=== PATIENT | male | born 1965 | race Caucasian/White ===

== ENCOUNTER 2020-02-02 13:18 | Inpatient (IN) | payer OTHER, SELFPAY ==
[2020-02-09 04:38] VITALS: BMI 34.9
[2020-02-10] VITALS (8 sets, daily range): BP systolic 123–165; BP diastolic 88–100; PULSE 78–101; RESP 16–20; TEMP 36.4–37.2; O2SAT 93–96
--- NOTE | 2020-02-10 | XR_ITS ---
EXAMINATION: CHEST X-RAY CLINICAL INFORMATION: Check NG tube placement COMPARISON: Previous chest x-ray most recent 02/05/2020 TECHNIQUE: AP portable chest FINDINGS: The cardiac and mediastinal contours are normal. There is a nasogastric tube that projects over the stomach. There is new atelectasis or small infiltrate at the left lung base. The lungs are otherwise clear. There is no pleural effusion or pneumothorax. No free air is seen. Distended bowel below the diaphragm is noted. There are degenerative changes of the spine. IMPRESSION: Nasogastric projects over stomach. New atelectasis or small infiltrate at the left lung base.
[2020-02-10] MEDS: Metoprolol Tartrate 50 MG TABLET PO ×2 (01:15→07:41)
[2020-02-10] MEDS: Dextrose 5 % and 0.9 % NaCl 1,000 ML 80 ML IVCONT ×2 (02:55→15:48)
[2020-02-10] MEDS: Piperacillin Sodium/Tazobactam 3.375 GM in 0.9 % Sodium Chloride 50 ML IV ×4 (05:09→22:11)
[2020-02-10] MEDS: Pantoprazole Sodium 40 MG/10 ML VIAL IVPUSH (05:10)
[2020-02-10 06:45] LABS: Hemoglobin 9.8 g/dl (14.0-18.0); Mean Corpuscular HGB Conc 32.7 g/dl (31.0-36.0); Mean Corpuscular Hemoglobin 26.1 pg (27.0-33.0); Mean Platelet Volume 10.1 fL (9.4-12.4); NRBC Pct Auto 0.4 /100WBC (0.0-0.2); Platelet Count 495 X10*3/uL (160-400); Red Blood Count 3.75 X10*6/uL (4.60-5.80); Red Cell Distribution Width 15.2 % (11.0-16.0)
[2020-02-10] MEDS: 0.9 % Sodium Chloride Flush 3 ML SYRINGE 2 ML IVFLUSH ×3 (07:40→17:04)
[2020-02-10] MEDS: lisinopriL 20 MG TABLET PO (07:41)
[2020-02-10 09:48] LABS: Blood Urea Nitrogen 11 mg/dL (9-16); Calcium 7.6 mg/dL (8.4-10.2); Creatinine Clr Calc Pharmacy 131.7; Estimated Glomerular Filt Rate > 60; Glucose Random 129 mg/dL (60-115)
[2020-02-10 09:58] LABS: Anion Gap 14 (12-20); Carbon Dioxide 26 mmol/L (22-29); Chloride 102 mmol/L (96-108); Sodium 139 mmol/L (135-145)
--- NOTE | 2020-02-10 10:07 | P.PNGS_ITS ---
Subjective Subjective Interval history: Developed nausea and vomiting this morning. NGT placed by Dr. Rainey at bedside. Passing flatus and stool via ostomy. <MAURICE Yu Last Filed: 02/10/20 10:20> Physical Exam Vital Signs and I&O and Narrative: Vital Signs and I&O: Vital Signs Temp 98.4 F 02/10/20 07:27 Pulse 78 02/10/20 07:41 Resp 18 02/10/20 07:27 BP 135/90 H 02/10/20 07:41 Pulse Ox 93 02/10/20 07:27 Intake & Output 02/09/20 02/10/20 02/10/20 18:59 06:59 18:59 Intake Total 50 / 50 50 / 50 Balance 50 / 50 50 / 50 Intake: Intake, IV Amoun t 50 / 50 50 / 50 Piperacillin S odium/Tazobactam 50 / 50 50 / 50 3.375 gm In 0. 9 % Sodium Chloride 50 ml @ 100 mls/hr IV Q6H [facility] Rx#:[id number] Body Mass Index 34.9 <Chio Kiran PA-C Last Filed: 02/10/20 10:20> Const: General: alert, awake and other (uncomfortable appearing) <MAURICE Yu Last Filed: 02/10/20 10:20> Orientation/consciousness: patient oriented x3 <MAURICE Yu Last Filed: 02/10/20 10:20> Resp: Effort & Inspection: normal respiratory effort <MAURICE Yu Last Filed: 02/10/20 10:20> Cardio: Rate: regular rate <MAURICE Yu Last Filed: 02/10/20 10:20> GI: Inspection: Yes distended, Yes incision (no erythema, some drainage) and Yes other (ostomy pink with large amount of soft stool in appliance) <MAURICE Yu Last Filed: 02/10/20 10:20> Palpation (GI): Soft to palpation and Tenderness to palpation present (GI) other (surrounding incision) <MAURICE Yu Last Filed: 02/10/20 10:20> Skin: General skin exam: other (normal color) <Chio Kiran PA-C - Last Filed: 02/10/20 10:20> Rashes: no rashes <MAURICE Yu Last Filed: 02/10/20 10:20> Neuro: General: patient oriented x3 <MAURICE Yu Last Filed: 02/10/20 10:20> Extrem: General: Yes no clubbing, cyanosis or edema <MAURICE Yu Last Filed: 02/10/20 10:20> Progress Note: A&P Assessment and plan (1) Stricture of sigmoid colon: Problem details: secondary to diverticulitis, causing LBO <MAURICE Yu Last Filed: 02/10/20 10:20> Status: Acute <MAURICE Yu Last Filed: 02/10/20 10:20> Assessment and Plan: s/p sigmoid resection with creation of transverse loop colostomy <MAURICE Yu Last Filed: 02/10/20 10:20> (2) S/P exploratory laparotomy: Status: Acute <MAURICE Yu Last Filed: 02/10/20 10:20> Assessment and Plan: POD #7 s/p ex lap, sigmoid resection with creation of transverse loop colostomy F/u CT scan yesterday for nausea/vomiting, leukocytosis revealed possible ischemia of colon but lactate normal. Started on IV zosyn empirically as he is at risk for abscess formation. WBC improved this am. Persistent N/V this am, NGT inserted. Continue to low intermittent suction. Likely with ileus. Strongly encouraged ambulation, OOB and IS use. <MAURICE Yu Last Filed: 02/10/20 10:20> vomitting this AM, so I placed an NGT abd remains soft and benign good stoma function vomitting likely from ileus as shown by CT yesterday WBC improving on Zosyn OOB seen and examined - agree with YASMIN Kiran overall, benign appearing <Александр Rainey MD - Last Filed: 02/10/20 13:39> (3) Ileus following gastrointestinal surgery: Status: Acute <Chio Kiran PA-C - Last Filed: 02/10/20 10:20> Assessment and Plan: Continue NPO, NGT decompression. IVF for hydration. Encouraged OOB/ambulation. <MAURICE Yu Last Filed: 02/10/20 10:20> (4) Atrial fibrillation: Status: Acute <MAURICE Yu Last Filed: 02/10/20 10:20> Assessment and Plan: Hospitalists, cardiology following. HR improved. On lovenox. <MAURICE Yu Last Filed: 02/10/20 10:20> Fall Risk Details Current Medications: Current Medications Generic Name Dose Route Start Last Admin Trade Name Freq PRN Reason Stop Dose Admin Acetaminophen 975 mg 02/10/20 00:00 Acetaminophen 325 Mg Tablet PO Q6H PRN Pain, Mild (Pain Scale 1-3)/fever/headache Albuterol Sulfate 2 puff 02/10/20 00:00 Albuterol Sulfate 90 Mcg 18 Gm Inhaler INHALE Q4H PRN Shortness of Breath Albuterol/Ipratropium 3 ml 02/10/20 00:00 Albuterol/Iprat 2.5/0.5mg 3 Ml Ampul.Neb INHALE RQ4H PRN Shortness of Breath Enoxaparin Sodium 95 mg 02/10/20 07:00 Enoxaparin Sodium 100 Mg/Ml Syringe 1 mg/kg (95 mg) SUBCUT Q12H SHARI Dextrose/Sodium Chloride 1,000 mls @ 80 mls/hr 02/10/20 13:30 02/10/20 02:55 D5ns IVCONT 80 mls/hr .[id number] SHARI Administration Piperacillin Sod/Tazobactam 50 mls @ 100 mls/hr 02/10/20 01:00 02/10/20 08:54 Sod 3.375 gm/ Sodium Chloride IV Infused Q6H SHARI Infusion Diltiazem HCl 125 mg/ Sodium 125 mls @ 0 mls/hr 02/10/20 08:00 Chloride IVCONT .Q0M SHARI Protocol Per Protocol Levalbuterol HCl 1.25 mg 02/10/20 00:00 Levalbuterol Hcl 1.25 Mg/3 Ml Vial.Neb INHALE Q4H PRN Shortness of Breath Lisinopril 20 mg 02/10/20 09:00 02/10/20 07:41 Lisinopril 20 Mg Tablet PO 20 mg DAILY SHARI Administration Protocol Metoprolol Tartrate 50 mg 02/10/20 00:00 02/10/20 07:41 Metoprolol Tartrate 50 Mg Tablet PO 50 mg Q6H SHARI Administration Protocol Morphine Sulfate 4 mg 02/10/20 00:00 Morphine Sulfate 4 Mg/Ml Cartridge IVPUSH Q4H PRN Pain, Severe (Pain Scale 7-10) Naloxone HCl 0.2 mg 02/10/20 00:00 Naloxone Hcl 0.4 Mg/Ml Vial IVPUSH Q2M PRN excessive sedation or RR <8 Ondansetron HCl 4 mg 02/10/20 00:00 Ondansetron Hcl 4 Mg/2 Ml Vial IVPUSH Q8H PRN Nausea Oxycodone HCl 5 mg 02/10/20 00:00 Oxycodone Hcl Immed Release 5 Mg Tablet PO Q4H PRN Pain, Moderate (Pain Scale 4-6 Oxycodone HCl 10 mg 02/10/20 00:00 Oxycodone Hcl Immed Release 5 Mg Tablet PO Q4H PRN Pain, Severe (Pain Scale 7-10) Pantoprazole Sodium 40 mg 02/10/20 06:30 02/10/20 05:10 Pantoprazole Sodium 40 Mg/10 Ml Vial IVPUSH 40 mg DAILY@0630 SHARI Administration Sodium Chloride 2 ml 02/10/20 00:00 02/10/20 07:40 0.9 % Sodium Chloride Flush 3 Ml Syringe IVFLUSH 2 ml QSHIFT SHARI Administration <Chio Kiran PA-C - Last Filed: 02/10/20 10:20> Time Spent With Patient Time: Total time spent is greater than 50% in coordination of care (as documented) at patient's floor/unit and/or counseling patient: <MAURICE Yu Last Filed: 02/10/20 10:20> Time with patient: 15 - 24 minutes <MAURICE Yu Last Filed: 02/10/20 10:20> Progress Note: Quality VTE Deep Vein Thrombosis/Pulmonary Embolism Present on Admission: No <Chio Kiran PA-C - Last Filed: 02/10/20 10:20>
--- NOTE | 2020-02-10 12:32 | HO.PM.IMPN ---
Subjective Subjective Date of Service: 02/10/20 Interval History: patient seen and examined at bedside patient reported having vomiting in the morning NG tube was placed to wall suction Physical Exam Vital Signs and I&O and Narrative: Vital Signs and I&O: Vital Signs Temp 97.6 F 02/10/20 11:38 Pulse 91 02/10/20 11:38 Resp 18 02/10/20 11:38 BP 134/100 H 02/10/20 11:38 Pulse Ox 94 02/10/20 11:38 Intake & Output 02/09/20 02/10/20 02/10/20 18:59 06:59 18:59 Intake Total 50 / 50 50 / 50 Balance 50 / 50 50 / 50 Intake: Intake, IV Amoun t 50 / 50 50 / 50 Piperacillin S odium/Tazobactam 50 / 50 50 / 50 3.375 gm In 0. 9 % Sodium Chloride 50 ml @ 100 mls/hr IV Q6H [facility] Rx#:[id number] Body Mass Index 34.9 Objective Data Current Medications Generic Name Dose Route Start Last Admin Trade Name Freq PRN Reason Stop Dose Admin Acetaminophen 975 mg 02/10/20 00:00 Acetaminophen 325 Mg Tablet PO Q6H PRN Pain, Mild (Pain Scale 1-3)/fever/headache Albuterol Sulfate 2 puff 02/10/20 00:00 Albuterol Sulfate 90 Mcg 18 Gm Inhaler INHALE Q4H PRN Shortness of Breath Albuterol/Ipratropium 3 ml 02/10/20 00:00 Albuterol/Iprat 2.5/0.5mg 3 Ml Ampul.Neb INHALE RQ4H PRN Shortness of Breath Enoxaparin Sodium 95 mg 02/10/20 07:00 Enoxaparin Sodium 100 Mg/Ml Syringe 1 mg/kg (95 mg) SUBCUT Q12H SHARI Dextrose/Sodium Chloride 1,000 mls @ 80 mls/hr 02/10/20 13:30 02/10/20 02:55 D5ns IVCONT 80 mls/hr .[id number] SHARI Administration Piperacillin Sod/Tazobactam 50 mls @ 100 mls/hr 02/10/20 01:00 02/10/20 08:54 Sod 3.375 gm/ Sodium Chloride IV Infused Q6H [facility]I Infusion Diltiazem HCl 125 mg/ Sodium 125 mls @ 0 mls/hr 02/10/20 08:00 Chloride IVCONT .Q0M [facility]I Protocol Per Protocol Levalbuterol HCl 1.25 mg 02/10/20 00:00 Levalbuterol Hcl 1.25 Mg/3 Ml Vial.Neb INHALE Q4H PRN Shortness of Breath Lisinopril 20 mg 02/10/20 09:00 02/10/20 07:41 Lisinopril 20 Mg Tablet PO 20 mg DAILY SHARI Administration Protocol Metoprolol Tartrate 50 mg 02/10/20 00:00 02/10/20 07:41 Metoprolol Tartrate 50 Mg Tablet PO 50 mg Q6H SHARI Administration Protocol Morphine Sulfate 4 mg 02/10/20 00:00 Morphine Sulfate 4 Mg/Ml Cartridge IVPUSH Q4H PRN Pain, Severe (Pain Scale 7-10) Naloxone HCl 0.2 mg 02/10/20 00:00 Naloxone Hcl 0.4 Mg/Ml Vial IVPUSH Q2M PRN excessive sedation or RR <8 Ondansetron HCl 4 mg 02/10/20 00:00 Ondansetron Hcl 4 Mg/2 Ml Vial IVPUSH Q8H PRN Nausea Oxycodone HCl 5 mg 02/10/20 00:00 Oxycodone Hcl Immed Release 5 Mg Tablet PO Q4H PRN Pain, Moderate (Pain Scale 4-6 Oxycodone HCl 10 mg 02/10/20 00:00 Oxycodone Hcl Immed Release 5 Mg Tablet PO Q4H PRN Pain, Severe (Pain Scale 7-10) Pantoprazole Sodium 40 mg 02/10/20 06:30 02/10/20 05:10 Pantoprazole Sodium 40 Mg/10 Ml Vial IVPUSH 40 mg DAILY@0630 SHARI Administration Sodium Chloride 2 ml 02/10/20 00:00 02/10/20 07:40 0.9 % Sodium Chloride Flush 3 Ml Syringe IVFLUSH 2 ml QSHIFT SHARI Administration Labs CBC & Chem 7: 02/10/20 06:00 02/10/20 05:44 Labs: Laboratory Results - last 24 hr 02/07/20 02/08/20 02/09/20 05:47 05:30 05:55 MCV 80.4 80.7 MCH 26.3 L 26.3 L MCHC 32.7 32.6 RDW RDW Coeff of Oli 15.1 15.2 Plt Count 430 H D 524 H MPV 10.5 10.5 Absolute Nucleated RBC 0.000 0.050 H Nucleated RBC % (auto) 0.0 0.3 H Bicarbonate 21 L Anion Gap 16 Estimated Creat Clear 137.8 Estim Creat Clear Calc Estimated GFR Est GFR (Non-Af Amer) > 60 Random Glucose 79 Lactic Acid Calcium 02/09/20 02/10/20 02/10/20 12:55 05:44 05:44 MCV 80.0 MCH 26.1 L MCHC 32.7 RDW 15.2 RDW Coeff of Oli Plt Count 495 H MPV 10.1 Absolute Nucleated RBC 0.050 H Nucleated RBC % (auto) 0.4 H Bicarbonate Anion Gap 14 Estimated Creat Clear Estim Creat Clear Calc 131.7 Estimated GFR > 60 Est GFR (Non-Af Amer) Random Glucose 129 H Lactic Acid 1.1 Calcium 7.6 L 02/10/20 06:00 MCV Not Rcvd MCH Not Rcvd MCHC Not Rcvd RDW RDW Coeff of Oli Not Rcvd Plt Count Not Rcvd MPV Not Rcvd Absolute Nucleated RBC Not Rcvd Nucleated RBC % (auto) Not Rcvd Bicarbonate Anion Gap Estimated Creat Clear Estim Creat Clear Calc Estimated GFR Est GFR (Non-Af Amer) Random Glucose Lactic Acid Calcium Quality VTE Deep Vein Thrombosis/Pulmonary Embolism Present on Admission: No
[2020-02-10] MEDS: Enoxaparin Sodium 100 MG/ML SYRINGE 95 MG SUBCUT (13:17)
[2020-02-10] MEDS: Potassium Chloride/H20 10 MEQ/100 ML PIGGYBACK 100 MEQ IV ×4 (13:22→18:14)
--- NOTE | 2020-02-10 13:47 | CA_ITS ---
Transthoracic Echocardiogram Amended Patient (Last, First, Middle): Joe Marie, Gender: Male Date of : 1965 Age: 55 Procedure Date: 02/10/2020 Procedure Type: Transthoracic Echocardiogram Location: [facility] [place] Height: 165.1 cm Weight: 95.26 kg BSA: 2.02 m2 Heart Rate: bpm Ore Sampler: DANIELA Referring MD: Nitesh Rogers MD Symptoms: PERSISTANT ATRIAL A-FIB Study Quality: Fair ECG Rhythm: Atrial Fibrillation Conclusions: - The left ventricular systolic function is normal. The visually estimated ejection fraction is between 60-65%. - Mildly increased right ventricular cavity size. - No obvious valvular pathology seen on this study. - Mild pulmonary hypertension is present. - (due to technical difficulty, reporting was delayed). Findings Procedure Information Contrast agent, definity, is being given per protocol without apparent complications. Left Ventricle Normal left ventricular cavity size. There is normal left ventricular wall thickness. The left ventricular systolic function is normal. The visually estimated ejection fraction is between 60-65%. There is no evidence of regional wall motion abnormalities. Diastolic function is indeterminate on the basis of available data. Right Ventricle Mildly increased right ventricular cavity size. There is normal right ventricular systolic function. Atria The left atrium is normal in size. The right atrium is normal in size. Aortic Valve The aortic valve was not well visualized. There is no aortic valve stenosis. There is no aortic valve regurgitation. Mitral Valve The mitral valve appears normal. There is mild mitral valve regurgitation. There is no mitral valve stenosis. Pulmonic Valve The pulmonic valve was not well visualized. Tricuspid Valve There is trace tricuspid valve regurgitation. The right ventricular systolic pressure is 42 mmHg. Mild pulmonary hypertension is present. Great Vessels The aortic annulus, sinuses of valsalva, and asc aorta are normal in size. Venous The inferior vena cava is normal in size and collapses less than 50% with inspiration. Pericardium/Pleural There is no evidence of pericardial effusion. Prior Study Comparison No significant change compared to prior study dated: 01/18/2015. Recommendations, Care & Conclusions No obvious valvular pathology seen on this study. Measurements 2D Linear Measurements IVSd: 0.93 0.6-0.9/0.6-1.0 cm LVIDd: 4.13 3.9-5.3/4.2-5.9 cm LVIDd Index: 2.04 2.4-3.2/2.2-3.1 cm/m2 LVIDs: 2.82 2.0-3.6 cm LVPWd: 0.98 0.7-1.1 cm LA Diam: 4.50 2.7-3.8/3.0-4.0 cm LAIDs Index: 2.23 1.5-2.3 cm/m2 LV Mass: 155.56 67-162/88-224 g LV Mass Index: 77.01 43-95/49-115 g/m2 LVOT Diam: 2.10 3.0+(-)1.3 cm LVOT LVOT Diam: 2.10 LVOT Area: 3.46 Tricuspid Valve TR Pk Daniel: 2.90 TR Pk Grad: 34.00 RA Press: 8.00 RVSP: 42.00 Great Vessels Aorta Ao Asc: 2.70 2.1-3.4 cm Ao Arch: 2.50 Updated in Other Vendor System with Status of Final Angelito Fu MD electronically signed on 03/13/2020 10:10:32 AM with status of Final
--- NOTE | 2020-02-10 14:24 | MHC.CLN ---
F/U Nutrition: Diet advanced to C/L recommend 1700 calories per day to promote slow wt loss Following
--- NOTE | 2020-02-10 14:26 | PM.PNCARD ---
Subjective Subjective Principal diagnosis: Atrial fibrillation Interval history: patient seen and examined at bedside patient reported having vomiting in the morning NG tube was placed to wall suction patient denies any palpitations. Heart rate is well controlled for now. Physical Exam Vital Signs and I&O: Vital Signs Temp 97.6 F 02/10/20 11:38 Pulse 91 02/10/20 11:38 Resp 18 02/10/20 11:38 BP 134/100 H 02/10/20 11:38 Pulse Ox 94 02/10/20 11:38 Intake & Output 02/09/20 02/10/20 02/10/20 18:59 06:59 18:59 Intake Total 50 / 50 100 / 100 Output Total 200 / 200 Balance 50 / 50 -100 / -100 Urine Output (Average ml/kg/hr) 0.17 Intake: Intake, IV Amount 50 / 50 100 / 100 Piperacillin Sodium/Tazobactam 50 / 50 100 / 100 3.375 gm In 0.9 % Sodium Chloride 50 ml @ 100 mls/hr IV Q6H [facility] Rx#:[id number] Output: Output, Urine Amount 200 / 200 Other: NPO Yes Urine Urinal Urine Color Yellow Body Mass Index 34.9 Const General: cooperative, alert, awake and acute distress ( Appears uncomfortable) mild Nutritional Appearance: overweight Orientation/consciousness: patient oriented x3 HENMT Head: Yes normal to inspection, Yes normocephalic and Yes atraumatic Eyes General: appearance normal, both eyes and all related structures Neck Neck: Yes no JVD Carotids: normal carotid upstroke Chest Chest palpation & inspection: normal inspection of the chest Resp Effort & Inspection: normal respiratory effort and symmetric chest movement Auscultation: clear to auscultation bilaterally and diminished lung sounds Cardio Rhythm: abnormal rhythm irregularly irregular Heart sounds: S1 normal heart sound present and S2 normal heart sound present Peripheral pulses: Peripheral pulses 2+ throughout GI Inspection: Yes distended Auscultation: Hypoactive bowel sounds present Skin General skin exam: elasticity normal and turgor normal Neuro General: patient oriented x3 and no focal motor deficits Extrem General: Yes no clubbing, cyanosis or edema Psych Mental Status: mental status grossly normal Affect: Anxious affect present Thought content: Normal thought content present Insight: Good insight present (Psych) Progress Note: A&P Assessment and plan (1) Atrial fibrillation: Problem details: atrial fibrillation is currently rate controlled. Discussed with Dr. Rainey, can use p.o. Lopressor for rate control. Will continue the same. Continue anticoagulation with Lovenox. Eventually switch to oral anticoagulation. Continue IV Cardizem as bridge for rate control. Status: Acute (2) Stricture of sigmoid colon: Problem details: secondary to diverticulitis, causing LBO Status: Acute (3) S/P exploratory laparotomy: Status: Acute Fall Risk Details Current Medications: Current Medications Generic Name Dose Route Start Last Admin Trade Name Freq PRN Reason Stop Dose Admin Acetaminophen 975 mg 02/10/20 00:00 Acetaminophen 325 Mg Tablet PO Q6H PRN Pain, Mild (Pain Scale 1-3)/fever/headache Albuterol Sulfate 2 puff 02/10/20 00:00 Albuterol Sulfate 90 Mcg 18 Gm Inhaler INHALE Q4H PRN Shortness of Breath Albuterol/Ipratropium 3 ml 02/10/20 00:00 Albuterol/Iprat 2.5/0.5mg 3 Ml Ampul.Neb INHALE RQ4H PRN Shortness of Breath Enoxaparin Sodium 95 mg 02/10/20 07:00 02/10/20 13:17 Enoxaparin Sodium 100 Mg/Ml Syringe 1 mg/kg (95 mg) 95 mg SUBCUT Administration Q12H SHARI Dextrose/Sodium Chloride 1,000 mls @ 80 mls/hr 02/10/20 13:30 02/10/20 02:55 D5ns IVCONT 80 mls/hr .[id number] SHARI Administration Piperacillin Sod/Tazobactam 50 mls @ 100 mls/hr 02/10/20 01:00 02/10/20 14:01 Sod 3.375 gm/ Sodium Chloride IV Infused Q6H SHARI Infusion Diltiazem HCl 125 mg/ Sodium 125 mls @ 0 mls/hr 02/10/20 08:00 Chloride IVCONT .Q0M SHARI Protocol Per Protocol Potassium Chloride 10 meq in 100 mls @ 100 mls/hr 02/10/20 12:45 02/10/20 13:22 IV 02/10/20 16:44 100 mls/hr Q1H SHARI Administration Levalbuterol HCl 1.25 mg 02/10/20 00:00 Levalbuterol Hcl 1.25 Mg/3 Ml Vial.Neb INHALE Q4H PRN Shortness of Breath Lisinopril 20 mg 02/10/20 09:00 02/10/20 07:41 Lisinopril 20 Mg Tablet PO 20 mg DAILY SHARI Administration Protocol Metoprolol Tartrate 50 mg 02/10/20 00:00 02/10/20 13:22 Metoprolol Tartrate 50 Mg Tablet PO Not Given Q6H [facility] Protocol Morphine Sulfate 4 mg 02/10/20 00:00 Morphine Sulfate 4 Mg/Ml Cartridge IVPUSH Q4H PRN Pain, Severe (Pain Scale 7-10) Naloxone HCl 0.2 mg 02/10/20 00:00 Naloxone Hcl 0.4 Mg/Ml Vial IVPUSH Q2M PRN excessive sedation or RR <8 Ondansetron HCl 4 mg 02/10/20 00:00 Ondansetron Hcl 4 Mg/2 Ml Vial IVPUSH Q8H PRN Nausea Oxycodone HCl 5 mg 02/10/20 00:00 Oxycodone Hcl Immed Release 5 Mg Tablet PO Q4H PRN Pain, Moderate (Pain Scale 4-6 Oxycodone HCl 10 mg 02/10/20 00:00 Oxycodone Hcl Immed Release 5 Mg Tablet PO Q4H PRN Pain, Severe (Pain Scale 7-10) Pantoprazole Sodium 40 mg 02/10/20 06:30 02/10/20 05:10 Pantoprazole Sodium 40 Mg/10 Ml Vial IVPUSH 40 mg DAILY@0630 SHARI Administration Sodium Chloride 2 ml 02/10/20 00:00 02/10/20 07:40 0.9 % Sodium Chloride Flush 3 Ml Syringe IVFLUSH 2 ml QSHIFT SHARI Administration Time Spent With Patient Time: Total time spent is greater than 50% in coordination of care (as documented) at patient's floor/unit and/or counseling patient: Time with patient: 15 - 24 minutes Progress Note: Quality VTE Deep Vein Thrombosis/Pulmonary Embolism Present on Admission: No Review of Systems Const Reports no additional constitutional complaints Card Reports no additional cardiovascular complaints Resp Reports no additional respiratory complaints GI Reports abdominal pain and nausea Neuro Reports no additional neurologic complaints
[2020-02-10] MEDS: dilTIAZem HCL 125 MG in 0.9 % Sodium Chloride 100 ML IVCONT (15:43)
--- NOTE | 2020-02-10 18:03 | PM.PNGS ---
Subjective Subjective Interval history: c/o hiccups no more vomitting since NGT placed says he is impatient about progress - a little depressed Physical Exam Vital Signs and I&O and Narrative: Vital Signs and I&O: Vital Signs Temp 98.2 F 02/10/20 15:29 Pulse 95 02/10/20 15:43 Resp 20 02/10/20 15:29 BP 123/88 02/10/20 15:43 Pulse Ox 94 02/10/20 15:29 Intake & Output 02/09/20 02/10/20 02/10/20 18:59 06:59 18:59 Intake Total 50 / 50 1300 / 1300 Output Total 1565 / 1565 Balance 50 / 50 -265 / -265 Urine Output (Aver age ml/kg/hr) 0.44 Intake: Intake, IV Amoun t 50 / 50 1300 / 1300 Piperacillin S odium/Tazobactam 50 / 50 100 / 100 3.375 gm In 0. 9 % Sodium Chloride 50 ml @ 100 mls/hr IV Q6H SHARI Rx#:[id number] Potassium Chlo ride/H20 10 meq 200 / 200 In 100 ml @ 10 0 mls/hr IV Q1H SHARI Rx#:[id number] Dextrose 5 % a nd 0.9 % NaCl 1, 1000 / 1000 000 ml @ 80 ml s/hr IVCONT . [id number] SHARI Rx #:[id number] Output: Output, Urine Am ount 500 / 500 Output, Stool Am ount 350 / 350 Output, Gastric Drainage Amount 700 / 700 Right Nare 700 / 700 Output, Drainage Amount 15 / 15 Left Lower Abd omen 15 / 15 Other: NPO Yes Urine Urinal Urine Color Concentrated Stool Ostomy Stool Color Brown Stool Consistenc y Liquid Body Mass Index 34.9 Const: Other: awake, alert, NGT in place GI: Palpation (GI): Soft to palpation, no guarding, No Rebound tenderness present and Other GI palpation findings present (much less distended, benign exam) Progress Note: A&P Assessment and plan (1) S/P exploratory laparotomy: Problem details: has postop ileus keep NGT to low suction exam remains benign plan PICC line tomorrow for TPN pt and Cecilia aware of plan replace K Status: Acute (2) Stricture of sigmoid colon: Problem details: secondary to diverticulitis, causing LBO Status: Acute Fall Risk Details Current Medications: Current Medications Generic Name Dose Route Start Last Admin Trade Name Freq PRN Reason Stop Dose Admin Acetaminophen 975 mg 02/10/20 00:00 Acetaminophen 325 Mg Tablet PO Q6H PRN Pain, Mild (Pain Scale 1-3)/fever/headache Albuterol Sulfate 2 puff 02/10/20 00:00 Albuterol Sulfate 90 Mcg 18 Gm Inhaler INHALE Q4H PRN Shortness of Breath Albuterol/Ipratropium 3 ml 02/10/20 00:00 Albuterol/Iprat 2.5/0.5mg 3 Ml Ampul.Neb INHALE RQ4H PRN Shortness of Breath Enoxaparin Sodium 95 mg 02/10/20 07:00 02/10/20 13:17 Enoxaparin Sodium 100 Mg/Ml Syringe 1 mg/kg (95 mg) 95 mg SUBCUT Administration Q12H SHARI Dextrose/Sodium Chloride 1,000 mls @ 80 mls/hr 02/10/20 13:30 02/10/20 15:48 D5ns IVCONT 80 mls/hr .[id number] [facility] Administration Piperacillin Sod/Tazobactam 50 mls @ 100 mls/hr 02/10/20 01:00 02/10/20 14:01 Sod 3.375 gm/ Sodium Chloride IV Infused Q6H SHARI Infusion Diltiazem HCl 125 mg/ Sodium 125 mls @ 0 mls/hr 02/10/20 08:00 02/10/20 15:43 Chloride IVCONT 5 mg/hr .Q0M SHARI 5 mls/hr Administration Protocol Per Protocol Levalbuterol HCl 1.25 mg 02/10/20 00:00 Levalbuterol Hcl 1.25 Mg/3 Ml Vial.Neb INHALE Q4H PRN Shortness of Breath Lisinopril 20 mg 02/10/20 09:00 02/10/20 07:41 Lisinopril 20 Mg Tablet PO 20 mg DAILY SH[facility]I Administration Protocol Metoprolol Tartrate 50 mg 02/10/20 00:00 02/10/20 17:07 Metoprolol Tartrate 50 Mg Tablet PO Not Given Q6H SHARI Protocol Morphine Sulfate 4 mg 02/10/20 00:00 Morphine Sulfate 4 Mg/Ml Cartridge IVPUSH Q4H PRN Pain, Severe (Pain Scale 7-10) Naloxone HCl 0.2 mg 02/10/20 00:00 Naloxone Hcl 0.4 Mg/Ml Vial IVPUSH Q2M PRN excessive sedation or RR <8 Ondansetron HCl 4 mg 02/10/20 00:00 Ondansetron Hcl 4 Mg/2 Ml Vial IVPUSH Q8H PRN Nausea Oxycodone HCl 5 mg 02/10/20 00:00 Oxycodone Hcl Immed Release 5 Mg Tablet PO Q4H PRN Pain, Moderate (Pain Scale 4-6 Oxycodone HCl 10 mg 02/10/20 00:00 Oxycodone Hcl Immed Release 5 Mg Tablet PO Q4H PRN Pain, Severe (Pain Scale 7-10) Pantoprazole Sodium 40 mg 02/10/20 06:30 02/10/20 05:10 Pantoprazole Sodium 40 Mg/10 Ml Vial IVPUSH 40 mg DAILY@0630 SH[facility]I Administration Sodium Chloride 2 ml 02/10/20 00:00 02/10/20 17:04 0.9 % Sodium Chloride Flush 3 Ml Syringe IVFLUSH 2 ml QSHIFT [facility] Administration Time Spent With Patient Time: Total time spent is greater than 50% in coordination of care (as documented) at patient's floor/unit and/or counseling patient: Time with patient: less than 15 minutes Progress Note: Quality VTE Deep Vein Thrombosis/Pulmonary Embolism Present on Admission: No
[2020-02-11] VITALS (9 sets, daily range): BP systolic 132–155; BP diastolic 78–99; PULSE 84–97; RESP 18–88; TEMP 36.2–37.2; O2SAT 95–97; BMI 34.9
[2020-02-11] MEDS: 0.9 % Sodium Chloride Flush 3 ML SYRINGE 2 ML IVFLUSH ×2 (01:27→08:45)
[2020-02-11] MEDS: Piperacillin Sodium/Tazobactam 3.375 GM in 0.9 % Sodium Chloride 50 ML IV ×4 (01:28→18:17)
[2020-02-11] MEDS: Pantoprazole Sodium 40 MG/10 ML VIAL IVPUSH (04:56)
[2020-02-11] MEDS: Dextrose 5 % and 0.9 % NaCl 1,000 ML 80 ML IVCONT (04:57)
--- NOTE | 2020-02-11 05:41 | PC.NURSE ---
PATIENT HAD A 3 BEAT OF VTACH AT 2143. PT ASYMPTOMATIC. HOSPITALIST NOTIFIED VIA [employer]. WILL CONTINUE TO MONITOR.
--- NOTE | 2020-02-11 08:34 | PM.PNGS ---
Subjective Subjective Interval history: Feels better this morning. Less bloated. Denies nausea. <AMURICE Yu Last Filed: 02/11/20 08:47> Physical Exam Vital Signs and I&O and Narrative: Vital Signs and I&O: Vital Signs Temp 98.9 F 02/11/20 04:17 Pulse 90 02/11/20 07:32 Resp 18 02/11/20 07:32 BP 139/90 H 02/11/20 07:32 Pulse Ox 96 02/11/20 07:32 Intake & Output 02/10/20 02/11/20 02/11/20 18:59 06:59 18:59 Intake Total 1400 / 2600 1200 / 2600 Output Total 1565 / 2725 1160 / 2725 Balance -165 / -125 40 / -125 Urine Output (Aver age ml/kg/hr) 0.44 0.52 Intake: Intake, IV Amoun t 1400 / 2600 1200 / 2600 Piperacillin S odium/Tazobactam 100 / 200 100 / 200 3.375 gm In 0. 9 % Sodium Chloride 50 ml @ 100 mls/hr IV Q6H SHARI Rx#:[id number] Potassium Chlo ride/H20 10 meq 300 / 400 100 / 400 In 100 ml @ 10 0 mls/hr IV Q1H SHARI Rx#:[id number] Dextrose 5 % a nd 0.9 % NaCl 1, 1000 / 2000 1000 / 2000 000 ml @ 80 ml s/hr IVCONT . [id number] SHARI Rx #:[id number] Output: Output, Urine Am ount 500 / 1100 600 / 1100 Output, Stool Am ount 350 / 450 100 / 450 Output, Tube Freya unt 10 / 10 RODDY Drain 10 / 10 Output, Gastric Drainage Amount 700 / 1150 450 / 1150 Right Nare 700 / 1150 450 / 1150 Output, Drainage Amount 15 / 15 0 / 15 Left Lower Abd omen 15 / 15 0 / 15 Other: NPO Yes Number of Bowel Movements 1 Urine Urinal Urine Color Concentrated Stool Ostomy Ostomy Stool Color Brown Brown Stool Consistenc y Liquid Liquid Body Mass Index 34.9 <MAURICE Yu Last Filed: 02/11/20 08:47> Const: General: comfortable, no acute distress and alert <MAURICE Yu Last Filed: 02/11/20 08:47> Orientation/consciousness: patient oriented x3 <MAURICE Yu Last Filed: 02/11/20 08:47> Eyes: Sclerae: sclerae normal <MAURICE Yu Last Filed: 02/11/20 08:47> Resp: Effort & Inspection: normal respiratory effort <MAURICE Yu Last Filed: 02/11/20 08:47> Cardio: Rate: regular rate <MAURICE Yu Last Filed: 02/11/20 08:47> GI: Other: ostomy beefy red, large amount of soft stool in appliance <MAURICE Yu Last Filed: 02/11/20 08:47> Inspection: Yes distended, Yes incision (clean) and Yes other (RODDY drain with dark output, scanty) <MAURICE Yu Last Filed: 02/11/20 08:47> Palpation (GI): Soft to palpation, Tenderness to palpation present (GI) (mild, surrounding incision), no guarding and not rigid <Chio Kiran PA-C Last Filed: 02/11/20 08:47> Skin: Rashes: no rashes <MAURICE Yu Last Filed: 02/11/20 08:47> Neuro: General: patient oriented x3 <MAURICE Yu Filed: 02/11/20 08:47> Extrem: General: Yes no clubbing, cyanosis or edema <MAURICE Yu Last Filed: 02/11/20 08:47> Progress Note: A&P Assessment and plan (1) Atrial fibrillation: Status: Acute <MAURICE Yu Last Filed: 02/11/20 08:47> Assessment and Plan: On IV cardizem while NGT in place. Hospitalists, cardiology following. <MAURICE Yu Last Filed: 02/11/20 08:47> (2) Hypokalemia: Status: Acute <MAURICE Yu Last Filed: 02/11/20 08:47> (3) Ileus following gastrointestinal surgery: Status: Acute <MAURICE Yu Last Filed: 02/11/20 08:47> Assessment and Plan: Feels improved this morning, less distended. Ostomy continues to function well. Cont NGT decompression, NPO status. Trend NGT output. PICC line today for TPN. Continue to encourage ambulation/OOB and IS use. <MAURICE Yu Last Filed: 02/11/20 08:47> (4) S/P exploratory laparotomy: Status: Acute <MAURICE Yu Last Filed: 02/11/20 08:47> Assessment and Plan: POD #8 s/p ex lap, sigmoid resection with creation of transverse loop colostomy <Chio Kiran PA-C - Last Filed: 02/11/20 08:47> (5) Stricture of sigmoid colon: Problem details: secondary to diverticulitis, causing LBO <MAURICE Yu Last Filed: 02/11/20 08:47> Status: Acute <MAURICE Yu Last Filed: 02/11/20 08:47> Assessment and Plan: feels better than yesterday abd much softer and less distended no significant tenderness stoma functioning well HR better WBC down PICC line, TPN monitor NGT output - hopefully this will come out over weekend explained plan to pt seen and examined independently agree with YASMIN Kiran <Александр Rainey MD - Last Filed: 02/11/20 11:40> Fall Risk Details Current Medications: Current Medications Generic Name Dose Route Start Last Admin Trade Name Freq PRN Reason Stop Dose Admin Acetaminophen 975 mg 02/10/20 00:00 Acetaminophen 325 Mg Tablet PO Q6H PRN Pain, Mild (Pain Scale 1-3)/fever/headache Albuterol Sulfate 2 puff 02/10/20 00:00 Albuterol Sulfate 90 Mcg 18 Gm Inhaler INHALE Q4H PRN Shortness of Breath Albuterol/Ipratropium 3 ml 02/10/20 00:00 Albuterol/Iprat 2.5/0.5mg 3 Ml Ampul.Neb INHALE RQ4H PRN Shortness of Breath Enoxaparin Sodium 95 mg 02/10/20 07:00 02/10/20 22:10 Enoxaparin Sodium 100 Mg/Ml Syringe 1 mg/kg (95 mg) Not Given SUBCUT Q12H SH[facility]I Dextrose/Sodium Chloride 1,000 mls @ 80 mls/hr 02/10/20 13:30 02/11/20 04:57 D5ns IVCONT 80 mls/hr .[id number] SHARI Administration Piperacillin Sod/Tazobactam 50 mls @ 100 mls/hr 02/10/20 01:00 02/11/20 06:36 Sod 3.375 gm/ Sodium Chloride IV 100 mls/hr Q6H SH[facility]I Administration Diltiazem HCl 125 mg/ Sodium 125 mls @ 0 mls/hr 02/10/20 08:00 02/10/20 15:43 Chloride IVCONT 5 mg/hr .Q0M SHARI 5 mls/hr Administration Protocol Per Protocol Levalbuterol HCl 1.25 mg 02/10/20 00:00 Levalbuterol Hcl 1.25 Mg/3 Ml Vial.Neb INHALE Q4H PRN Shortness of Breath Lisinopril 20 mg 02/10/20 09:00 02/10/20 07:41 Lisinopril 20 Mg Tablet PO 20 mg DAILY SHARI Administration Protocol Metoprolol Tartrate 50 mg 02/10/20 00:00 02/11/20 06:35 Metoprolol Tartrate 50 Mg Tablet PO Not Given Q6H SHARI Protocol Morphine Sulfate 4 mg 02/10/20 00:00 Morphine Sulfate 4 Mg/Ml Cartridge IVPUSH Q4H PRN Pain, Severe (Pain Scale 7-10) Naloxone HCl 0.2 mg 02/10/20 00:00 Naloxone Hcl 0.4 Mg/Ml Vial IVPUSH Q2M PRN excessive sedation or RR <8 Ondansetron HCl 4 mg 02/10/20 00:00 Ondansetron Hcl 4 Mg/2 Ml Vial IVPUSH Q8H PRN Nausea Oxycodone HCl 5 mg 02/10/20 00:00 Oxycodone Hcl Immed Release 5 Mg Tablet PO Q4H PRN Pain, Moderate (Pain Scale 4-6 Oxycodone HCl 10 mg 02/10/20 00:00 Oxycodone Hcl Immed Release 5 Mg Tablet PO Q4H PRN Pain, Severe (Pain Scale 7-10) Pantoprazole Sodium 40 mg 02/10/20 06:30 02/11/20 04:56 Pantoprazole Sodium 40 Mg/10 Ml Vial IVPUSH 40 mg DAILY@0630 SHARI Administration Sodium Chloride 2 ml 02/10/20 00:00 02/11/20 01:27 0.9 % Sodium Chloride Flush 3 Ml Syringe IVFLUSH 2 ml QSHIFT SHARI Administration <MAURICE Yu Last Filed: 02/11/20 08:47> Time Spent With Patient Time: Total time spent is greater than 50% in coordination of care (as documented) at patient's floor/unit and/or counseling patient: <MAURICE Yu Last Filed: 02/11/20 08:47> Time with patient: 15 - 24 minutes <MAURICE Yu Last Filed: 02/11/20 08:47> No Severe Sepsis: No Severe Sepsis <MAURICE Yu Last Filed: 02/11/20 08:47> Progress Note: Quality VTE Deep Vein Thrombosis/Pulmonary Embolism Present on Admission: No <MAURICE Yu Last Filed: 02/11/20 08:47>
[2020-02-11] MEDS: Enoxaparin Sodium 100 MG/ML SYRINGE 95 MG SUBCUT ×2 (08:45→18:16)
[2020-02-11 10:05] LABS: Hematocrit 30.2 % (42-52); Hemoglobin 9.8 g/dl (14.0-18.0); Mean Corpuscular HGB Conc 32.5 g/dl (31.0-36.0); Mean Corpuscular Hemoglobin 26.4 pg (27.0-33.0); Mean Corpuscular Volume 81.4 fL (80-98); Mean Platelet Volume 10.1 fL (9.4-12.4); NRBC Pct Auto 0.4 /100WBC (0.0-0.2); Platelet Count 489 X10*3/uL (160-400); Red Blood Count 3.71 X10*6/uL (4.60-5.80); Red Cell Distribution Width 15.4 % (11.0-16.0); White Blood Count 11.2 X10*3/uL (4.8-10.8)
[2020-02-11 10:13] LABS: INTERNATIONAL NORM RATIO 1.7 (0.9-1.1); Prothrombin Time 20.3 SEC (10.8-13.0)
[2020-02-11 10:36] LABS: Anion Gap 12 (12-20); Calcium 7.5 mg/dL (8.4-10.2); Carbon Dioxide 27 mmol/L (22-29); Chloride 104 mmol/L (96-108); Creatinine Clr Calc Pharmacy 131.7; Estimated Glomerular Filt Rate > 60; Glucose Random 99 mg/dL (60-115); Potassium 3.4 mmol/l (3.3-5.1); Sodium 140 mmol/L (135-145)
[2020-02-11 10:40] LABS: Blood Urea Nitrogen 9 mg/dL (9-16)
[2020-02-11 10:52] LABS: Alanine Aminotransferase 55 U/L (0-40); Albumin Level 2.8 g/dL (3.5-5.0); Alkaline Phosphatase 114 U/L (39-117); Anion Gap 12 (12-20); Aspartate Amino Transferase 47 U/L (5-37); Bilirubin Direct 0.6 mg/dL (0.0-0.5); Bilirubin Total 0.8 mg/dL (0.0-1.0); Blood Urea Nitrogen 8 mg/dL (9-16); Calcium 7.7 mg/dL (8.4-10.2); Carbon Dioxide 27 mmol/L (22-29); Chloride 104 mmol/L (96-108); Creatinine Clr Calc Pharmacy 135.7; Estimated Glomerular Filt Rate > 60; Glucose Fasting 101 mg/dL (60-99); Magnesium 2.2 mg/dL (1.6-2.6); Potassium 3.4 mmol/l (3.3-5.1); Sodium 140 mmol/L (135-145); Total Protein 5.4 g/dL (6.5-8.0); Triglycerides 216 mg/dL
[2020-02-11 11:07] LABS: Band Neutrophils Percent 1 % (3-5); Eosinophils Absolute Manual 0.1 X10*3/UL (0.0-0.8); Eosinophils Percent Manual 1 % (0-4); Lymphocytes Absolute Manual 0.8 X10*3/uL (0.6-4.8); Lymphocytes Percent Manual 7 % (20-40); Metamyelocytes Absolute 0.1 X10*3/uL; Metamyelocytes Percent 1 %; Monocytes Absolute Manual 0.3 X10*3/uL (0.0-1.2); Monocytes Percent Manual 3 % (2-11); Myelocytes Absolute 0.1 X10*/uL; Myelocytes Percent 1 %; Neutrophils Absolute Manual 9.7 X10*3/uL (2.2-7.9); Neutrophils Percent Manual 86 % (45-73)
[2020-02-11 11:08] LABS: RBC Morphology NOTED
[2020-02-11 11:09] LABS: Polychromasia 1+
[2020-02-11 11:10] LABS: Platelet Estimate SLIGHTLY INCREASED (NORMAL); Platelet Morphology Comment NORMAL
[2020-02-11] MEDS: Metoprolol Tartrate 50 MG TABLET PO ×2 (12:13→18:17)
--- NOTE | 2020-02-11 12:18 | P.PNCA_ITS ---
Subjective Subjective Principal diagnosis: Atrial fibrillation Interval history: patient seen and examined at bedside patient feeling a lot better today with much improved abdominal symptoms. Atrial fibrillation rate remains controlled. On lower dose of Cardizem. Physical Exam Vital Signs and I&O: Vital Signs Temp 97.1 F 02/11/20 11:25 Pulse 97 02/11/20 11:25 Resp 18 02/11/20 11:25 BP 132/83 02/11/20 11:25 Pulse Ox 97 02/11/20 11:25 Intake & Output 02/10/20 02/11/20 02/11/20 18:59 06:59 18:59 Intake Total 1400 / 2600 1200 / 2600 50 / 50 Output Total 1565 / 2725 1160 / 2725 Balance -165 / -125 40 / -125 50 / 50 Urine Output (Average ml/kg/hr) 0.44 0.52 0.52 Intake: Intake, IV Amount 1400 / 2600 1200 / 2600 50 / 50 Piperacillin Sodium/Tazobactam 100 / 200 100 / 200 50 / 50 3.375 gm In 0.9 % Sodium Chloride 50 ml @ 100 mls/hr IV Q6H SHARI Rx#:[id number] Potassium Chloride/H20 10 meq 300 / 400 100 / 400 In 100 ml @ 100 mls/hr IV Q1H SHARI Rx#:[id number] Dextrose 5 % and 0.9 % NaCl 1, 1000 / 2000 1000 / 2000 000 ml @ 80 mls/hr IVCONT . [id number] SHARI Rx#:[id number] Output: Output, Urine Amount 500 / 1100 600 / 1100 Output, Stool Amount 350 / 450 100 / 450 Output, Tube Amount 10 / 10 RODDY Drain 10 / 10 Output, Gastric Drainage Amount 700 / 1150 450 / 1150 Right Nare 700 / 1150 450 / 1150 Output, Drainage Amount 15 / 15 0 / 15 Left Lower Abdomen 15 / 15 0 / 15 Other: NPO Yes Yes Number of Bowel Movements 1 Urine Urinal Urine Color Concentrated Stool Ostomy Ostomy Stool Color Brown Brown Stool Consistency Liquid Liquid Body Mass Index 34.9 Const General: cooperative, comfortable, no acute distress, alert and awake Orientation/consciousness: patient oriented x3 HENMT Head: Yes normal to inspection, Yes normocephalic and Yes atraumatic Eyes General: appearance normal, both eyes and all related structures Neck Neck: Yes full ROM, Yes trachea midline and Yes no JVD Chest Chest palpation & inspection: normal inspection of the chest Resp Effort & Inspection: normal respiratory effort Auscultation: clear to auscultation bilaterally and diminished lung sounds Cardio Jugular venous distension: no JVD Palpation: normal PMI Rhythm: abnormal rhythm irregularly irregular Heart sounds: S1 normal heart sound present and S2 normal heart sound present GI Inspection: Yes distended Auscultation: Hypoactive bowel sounds present Skin General skin exam: elasticity normal and turgor normal Neuro General: patient oriented x3 and no focal motor deficits Extrem General: Yes no clubbing, cyanosis or edema Psych Appearance: grossly normal Speech and movement: Normal speech and movement present and Clear speech present Affect: Anxious affect present Insight: Good insight present (Psych) Progress Note: A&P Fall Risk Details Current Medications: Current Medications Generic Name Dose Route Start Last Admin Trade Name Freq PRN Reason Stop Dose Admin Acetaminophen 975 mg 02/10/20 00:00 Acetaminophen 325 Mg Tablet PO Q6H PRN Pain, Mild (Pain Scale 1-3)/fever/headache Albuterol Sulfate 2 puff 02/10/20 00:00 Albuterol Sulfate 90 Mcg 18 Gm Inhaler INHALE Q4H PRN Shortness of Breath Albuterol/Ipratropium 3 ml 02/10/20 00:00 Albuterol/Iprat 2.5/0.5mg 3 Ml Ampul.Neb INHALE RQ4H PRN Shortness of Breath Enoxaparin Sodium 95 mg 02/10/20 07:00 02/11/20 08:45 Enoxaparin Sodium 100 Mg/Ml Syringe 1 mg/kg (95 mg) 95 mg SUBCUT Administration Q12H SHARI Dextrose/Sodium Chloride 1,000 mls @ 80 mls/hr 02/10/20 13:30 02/11/20 04:57 D5ns IVCONT 80 mls/hr .[id number] SHARI Administration Piperacillin Sod/Tazobactam 50 mls @ 100 mls/hr 02/10/20 01:00 02/11/20 12:12 Sod 3.375 gm/ Sodium Chloride IV 100 mls/hr Q6H SHARI Administration Diltiazem HCl 125 mg/ Sodium 125 mls @ 0 mls/hr 02/10/20 08:00 02/10/20 15:43 Chloride IVCONT 5 mg/hr .Q0M SHARI 5 mls/hr Administration Protocol Per Protocol Multivitamins / Chromium/ 1,000 mls @ 80 mls/hr 02/11/20 18:00 Copper/Manganese/Zinc / Amino IV Acids/Electrolytes DAILY@1800 [facility] Levalbuterol HCl 1.25 mg 02/10/20 00:00 Levalbuterol Hcl 1.25 Mg/3 Ml Vial.Neb INHALE Q4H PRN Shortness of Breath Lisinopril 20 mg 02/10/20 09:00 02/11/20 08:46 Lisinopril 20 Mg Tablet PO Not Given DAILY [facility] Protocol Metoprolol Tartrate 50 mg 02/10/20 00:00 02/11/20 12:13 Metoprolol Tartrate 50 Mg Tablet PO 50 mg Q6H [facility] Administration Protocol Morphine Sulfate 4 mg 02/10/20 00:00 Morphine Sulfate 4 Mg/Ml Cartridge IVPUSH Q4H PRN Pain, Severe (Pain Scale 7-10) Naloxone HCl 0.2 mg 02/10/20 00:00 Naloxone Hcl 0.4 Mg/Ml Vial IVPUSH Q2M PRN excessive sedation or RR <8 Ondansetron HCl 4 mg 02/10/20 00:00 Ondansetron Hcl 4 Mg/2 Ml Vial IVPUSH Q8H PRN Nausea Oxycodone HCl 5 mg 02/10/20 00:00 Oxycodone Hcl Immed Release 5 Mg Tablet PO Q4H PRN Pain, Moderate (Pain Scale 4-6 Oxycodone HCl 10 mg 02/10/20 00:00 Oxycodone Hcl Immed Release 5 Mg Tablet PO Q4H PRN Pain, Severe (Pain Scale 7-10) Pantoprazole Sodium 40 mg 02/10/20 06:30 02/11/20 04:56 Pantoprazole Sodium 40 Mg/10 Ml Vial IVPUSH 40 mg DAILY@0630 [facility] Administration Sodium Chloride 2 ml 02/10/20 00:00 02/11/20 08:45 0.9 % Sodium Chloride Flush 3 Ml Syringe IVFLUSH 2 ml QSHIFT [facility] Administration Time Spent With Patient Time: Total time spent is greater than 50% in coordination of care (as documented) at patient's floor/unit and/or counseling patient: Time with patient: 15 - 24 minutes Progress Note: Quality VTE Deep Vein Thrombosis/Pulmonary Embolism Present on Admission: No Review of Systems Const All systems reviewed & are unremarkable except as noted in HPI and below Card Reports no additional cardiovascular complaints Resp Reports no additional respiratory complaints GI Reports other ( Patient complains of hunger) Neuro Reports no additional neurologic complaints
--- NOTE | 2020-02-11 12:37 | MHC.CLN ---
RE: CONSULT TPN RECOMMEND D15 AA5% DAY ONE AT 50CC/HR TO PROVIDE 852KCALS, 60G PROTEIN MONITOR LYTES AND REPLETE NEEDED DISCUSSED WITH PHARMACY DAY TWO INCREASE TO 70CC/HR TO PROVIDE 1193KCALS, 84G PROTEIN DAY THREE INCREASE TO 80CC/HR AND ADD 13 ML OF 20% LIPIDS X 12 HOURS (IF TRIGS WNL) TO PROVIDE 1706KCALS 923KCALS/KG), 96G PROTEIN (1.3G/KG) MONITOR LYTES AND TRIGS CLOSELY FOLLOWING
--- NOTE | 2020-02-11 13:41 | P.PNIM_ITS ---
Subjective Subjective Interval History: patient seen and examined at bedside patient still reporting some nausea NG tube in place. Physical Exam Vital Signs and I&O and Narrative: Vital Signs and I&O: Vital Signs Temp 97.1 F 02/11/20 11:25 Pulse 97 02/11/20 11:25 Resp 18 02/11/20 11:25 BP 132/83 02/11/20 11:25 Pulse Ox 97 02/11/20 11:25 Intake & Output 02/10/20 02/11/20 02/11/20 18:59 06:59 18:59 Intake Total 1400 / 2600 1200 / 2600 191.417 / 191.417 Output Total 1565 / 2725 1160 / 2725 Balance -165 / -125 40 / -125 191.417 / 191.417 Urine Output (Aver age ml/kg/hr) 0.44 0.52 0.52 Intake: Intake, IV Amoun t 1400 / 2600 1200 / 2600 191.417 / 191.417 Piperacillin S odium/Tazobactam 100 / 200 100 / 200 100 / 100 3.375 gm In 0. 9 % Sodium Chloride 50 ml @ 100 mls/hr IV Q6H SHARI Rx#:[id number] Potassium Chlo ride/H20 10 meq 300 / 400 100 / 400 In 100 ml @ 10 0 mls/hr IV Q1H SHARI Rx#:[id number] Dextrose 5 % a nd 0.9 % NaCl 1, 1000 / 2000 1000 / 2000 000 ml @ 80 ml s/hr IVCONT . [id number] SHARI Rx #:[id number] dilTIAZem HCL 125 mg In 0.9 % 91.417 / 91.417 Sodium Chlorid e 100 ml @ Per Protocol IVCON T .Q0M SHARI Rx#: [id number] Output: Output, Urine Am ount 500 / 1100 600 / 1100 Output, Stool Am ount 350 / 450 100 / 450 Output, Tube Freya unt 10 / 10 RODDY Drain 10 / 10 Output, Gastric Drainage Amount 700 / 1150 450 / 1150 Right Nare 700 / 1150 450 / 1150 Output, Drainage Amount 15 / 15 0 / 15 Left Lower Abd omen 15 / 15 0 / 15 Other: NPO Yes Yes Number of Bowel Movements 1 Urine Urinal Urine Color Concentrated Stool Ostomy Ostomy Stool Color Brown Brown Stool Consistenc y Liquid Liquid Body Mass Index 34.9 Const: Other: awake, alert, NGT in place General: cooperative, comfortable, no acute distress, alert, awake, acute distress ( Appears uncomfortable) mild and other (uncomfortable appearing) Nutritional Appearance: overweight Orientation/consciousness: patient oriented x3 HENMT: Head: Yes normal to inspection, Yes normocephalic and Yes atraumatic Eyes: General: appearance normal, both eyes and all related structures Sclerae: sclerae normal Neck: Neck: Yes full ROM, Yes trachea midline and Yes no JVD Carotids: normal carotid upstroke Chest: Chest palpation & inspection: normal inspection of the chest Resp: Effort & Inspection: normal respiratory effort and symmetric chest movement Auscultation: clear to auscultation bilaterally and diminished lung sounds Cardio: Jugular venous distension: no JVD Palpation: normal PMI Rate: regular rate Rhythm: abnormal rhythm irregularly irregular Heart sounds: S1 normal heart sound present and S2 normal heart sound present Peripheral pulses: Peripheral pulses 2+ throughout GI: Other: ostomy beefy red, large amount of soft stool Inspection: Yes distended, Yes incision (clean) and Yes other (RODDY drain with dark output, scanty) Palpation (GI): Soft to palpation, Tenderness to palpation present (GI) (mild, surrounding incision) other (surrounding incision), no guarding, not rigid, No Rebound tenderness present and Other GI palpation findings present (much less distended, benign exam) Auscultation: Hypoactive bowel sounds present Skin: General skin exam: elasticity normal, turgor normal and other (normal color) Rashes: no rashes Neuro: General: patient oriented x3 and no focal motor deficits Extrem: General: Yes no clubbing, cyanosis or edema Psych: Appearance: grossly normal Mental Status: mental status grossly normal Speech and movement: Normal speech and movement present and Clear speech present Affect: Anxious affect present Thought content: Normal thought content present Insight: Good insight present (Psych) Objective Data Current Medications Generic Name Dose Route Start Last Admin Trade Name Freq PRN Reason Stop Dose Admin Acetaminophen 975 mg 02/10/20 00:00 Acetaminophen 325 Mg Tablet PO Q6H PRN Pain, Mild (Pain Scale 1-3)/fever/headache Albuterol Sulfate 2 puff 02/10/20 00:00 Albuterol Sulfate 90 Mcg 18 Gm Inhaler INHALE Q4H PRN Shortness of Breath Albuterol/Ipratropium 3 ml 02/10/20 00:00 Albuterol/Iprat 2.5/0.5mg 3 Ml Ampul.Neb INHALE RQ4H PRN Shortness of Breath Enoxaparin Sodium 95 mg 02/10/20 07:00 02/11/20 08:45 Enoxaparin Sodium 100 Mg/Ml Syringe 1 mg/kg (95 mg) 95 mg SUBCUT Administration Q12H SHARI Dextrose/Sodium Chloride 1,000 mls @ 80 mls/hr 02/10/20 13:30 02/11/20 04:57 D5ns IVCONT 80 mls/hr .[id number] SHARI Administration Piperacillin Sod/Tazobactam 50 mls @ 100 mls/hr 02/10/20 01:00 02/11/20 12:42 Sod 3.375 gm/ Sodium Chloride IV Infused Q6H SHARI Infusion Diltiazem HCl 125 mg/ Sodium 125 mls @ 0 mls/hr 02/10/20 08:00 02/11/20 10:00 Chloride IVCONT 2.5 mg/hr .Q0M SHARI 2.5 mls/hr Titration Protocol Per Protocol Multivitamins 17 ml/ Chromium/ 1,218.7 mls @ 50 mls/hr 02/11/20 18:00 Copper/Manganese/Zinc 1.7 ml/ IV Amino Acids/Electrolytes DAILY@1800 SHARI Levalbuterol HCl 1.25 mg 02/10/20 00:00 Levalbuterol Hcl 1.25 Mg/3 Ml Vial.Neb INHALE Q4H PRN Shortness of Breath Lisinopril 20 mg 02/10/20 09:00 02/11/20 08:46 Lisinopril 20 Mg Tablet PO Not Given DAILY [facility] Protocol Metoprolol Tartrate 50 mg 02/10/20 00:00 02/11/20 12:13 Metoprolol Tartrate 50 Mg Tablet PO 50 mg Q6H SHARI Administration Protocol Morphine Sulfate 4 mg 02/10/20 00:00 Morphine Sulfate 4 Mg/Ml Cartridge IVPUSH Q4H PRN Pain, Severe (Pain Scale 7-10) Naloxone HCl 0.2 mg 02/10/20 00:00 Naloxone Hcl 0.4 Mg/Ml Vial IVPUSH Q2M PRN excessive sedation or RR <8 Ondansetron HCl 4 mg 02/10/20 00:00 Ondansetron Hcl 4 Mg/2 Ml Vial IVPUSH Q8H PRN Nausea Oxycodone HCl 5 mg 02/10/20 00:00 Oxycodone Hcl Immed Release 5 Mg Tablet PO Q4H PRN Pain, Moderate (Pain Scale 4-6 Oxycodone HCl 10 mg 02/10/20 00:00 Oxycodone Hcl Immed Release 5 Mg Tablet PO Q4H PRN Pain, Severe (Pain Scale 7-10) Pantoprazole Sodium 40 mg 02/10/20 06:30 02/11/20 04:56 Pantoprazole Sodium 40 Mg/10 Ml Vial IVPUSH 40 mg DAILY@0630 SHARI Administration Sodium Chloride 2 ml 02/10/20 00:00 02/11/20 08:45 0.9 % Sodium Chloride Flush 3 Ml Syringe IVFLUSH 2 ml QSHIFT SHARI Administration Labs CBC & Chem 7: 02/11/20 08:42 02/11/20 09:22 Labs: Laboratory Results - last 24 hr 02/11/20 02/11/20 02/11/20 08:42 08:42 09:22 MCV 81.4 MCH 26.4 L MCHC 32.5 RDW 15.4 Plt Count 489 H MPV 10.1 Absolute Nucleated RBC 0.040 H Nucleated RBC % (auto) 0.4 H Neutrophils % (Manual) 86 H Band Neutrophils % 1 L Lymphocytes % (Manual) 7 L Monocytes % (Manual) 3 Eosinophils % (Manual) 1 Metamyelocytes % 1 Myelocytes % 1 Neutrophils # (Manual) 9.7 H Lymphocytes # (Manual) 0.8 Monocytes # (Manual) 0.3 Eosinophils # (Manual) 0.1 Metamyelocytes # 0.1 Myelocytes # 0.1 Platelet Estimate SLIGHTLY INCREASED Plt Morphology Comment NORMAL RBC Morphology NOTED Polychromasia 1+ PT 20.3 H INR 1.7 H Anion Gap 12 Estim Creat Clear Calc 131.7 Estimated GFR > 60 Random Glucose 99 Fasting Glucose Calcium 7.5 L Magnesium Total Bilirubin Direct Bilirubin AST ALT Alkaline Phosphatase Total Protein Albumin Triglycerides 02/11/20 09:22 MCV MCH MCHC RDW Plt Count MPV Absolute Nucleated RBC Nucleated RBC % (auto) Neutrophils % (Manual) Band Neutrophils % Lymphocytes % (Manual) Monocytes % (Manual) Eosinophils % (Manual) Metamyelocytes % Myelocytes % Neutrophils # (Manual) Lymphocytes # (Manual) Monocytes # (Manual) Eosinophils # (Manual) Metamyelocytes # Myelocytes # Platelet Estimate Plt Morphology Comment RBC Morphology Polychromasia PT INR Anion Gap 12 Estim Creat Clear Calc 135.7 Estimated GFR > 60 Random Glucose Fasting Glucose 101 H Calcium 7.7 L Magnesium 2.2 Total Bilirubin 0.8 Direct Bilirubin 0.6 H AST 47 H ALT 55 H Alkaline Phosphatase 114 Total Protein 5.4 L Albumin 2.8 L Triglycerides 216 Quality VTE Deep Vein Thrombosis/Pulmonary Embolism Present on Admission: No Assessment and Plan (1) Stricture of sigmoid colon: Status: Acute Assessment and Plan: management as per surgery DVT prophyl axis Lovenox (2) Atrial fibrillation: Status: Acute Assessment and Plan: AFib with RVR heart rate in 100s continue Cardizem drip as patient is NPO and with NG tube with wall suction monitor on telemetry cardiology following Continue Lovenox (3) Hypokalemia: Status: Acute Assessment and Plan: replaced monitor potassium (4) Ileus following gastrointestinal surgery: Status: Acute Assessment and Plan: continue NG tube to wall suction continue NPO as per surgery management as per surgery (5) S/P exploratory laparotomy: Status: Acute Assessment and Plan: management as per surgery
--- NOTE | 2020-02-11 15:01 | PM.EVENT ---
Event Note Event Note: Patient remains comfortable denies abdominal pain no nausea or vomiting NG tube in place abdomen soft no guarding no rebound, no significant tenderness stoma continues to function well awaiting PICC line TPN ordered improving slowly NG tube in place for postop ileus
--- NOTE | 2020-02-11 17:00 | XR_ITS ---
EXAMINATION: XR CHEST CLINICAL INFORMATION: PICC line placement COMPARISON: 02/10/2020 TECHNIQUE: Frontal view of the chest was obtained. FINDINGS: A right-sided PICC line is present with its tip at the SVC/RA junction. An NG tube is present with its tip just within the stomach. Heart size normal. Again seen is left basilar atelectasis, slightly improved since yesterday's study IMPRESSION: PICC line is present are present with its tip at the SVC/RA junction.
--- NOTE | 2020-02-11 17:40 | P.PICC_ITS ---
PICC Line Insertion NPICC Diagnosis: [PT NEEDS TPN] Indication: [PT NEEDS TPN] Pertinent Labs: [REVIEWED] Technique: Following informed consent including risks, benefits and alternatives and using sterile technique including cap and mask, sterile gown, glove and drape, the [RIGHT] arm was prepped and draped in the usual sterile fashion of full barrier technique with CHG. Following completion of Section Protocol the skin and soft tissues were anesthetized with 1% Lidocaine plain. Using ultrasound guidance, [RIGHT BASILIC] vein access was obtained. Over an 0.018 wire through peel-away sheath, a [DOULBLE LUMEN] PICC line was positioned. Catheter length is [41 CM] internal length, [ZERO] external length, for a total trimmed length of [41 CM]. The procedure was performed in [THE ULTRA SOUND ROOM]. Tip verification was performed by CXR and read by the RADIOLOGIST (DR. HIGGINBOTHAM) WHO APPROVED PLACEMENT. SEE DOCUMENTATION. Ultrasound was used to document vein patency and for needle entry. Vascular [employer] Developer has released the line for use and it is currently dressed with a StatLock, Tegaderm, and CHG disc. Verification has been performed for blood return and line patency. Arm Circumference: [32.5 CM] Equipment: [[employer] POWER PICC SOLO] Catheter Type: [5 FR DOUBLE LUMEN] Lot #: [[id number]]
[2020-02-12] VITALS (12 sets, daily range): BP systolic 128–145; BP diastolic 80–99; PULSE 89–107; RESP 14–20; TEMP 36.3–36.8; O2SAT 96–98
[2020-02-12] MEDS: Piperacillin Sodium/Tazobactam 3.375 GM in 0.9 % Sodium Chloride 50 ML IV ×4 (00:44→18:39)
[2020-02-12] MEDS: Metoprolol Tartrate 50 MG TABLET PO ×5 (00:44→23:55)
[2020-02-12] MEDS: Dextrose 5 % and 0.9 % NaCl 1,000 ML 80 ML IVCONT ×2 (00:56→12:45)
[2020-02-12] MEDS: 0.9 % Sodium Chloride Flush 3 ML SYRINGE 2 ML IVFLUSH ×3 (00:57→23:55)
[2020-02-12] MEDS: Pantoprazole Sodium 40 MG/10 ML VIAL IVPUSH (06:46)
[2020-02-12] MEDS: Enoxaparin Sodium 100 MG/ML SYRINGE 95 MG SUBCUT ×2 (06:55→18:39)
[2020-02-12 07:04] LABS: Anion Gap 11 (12-20); Blood Urea Nitrogen 8 mg/dL (9-16); Calcium 7.6 mg/dL (8.4-10.2); Carbon Dioxide 28 mmol/L (22-29); Chloride 104 mmol/L (96-108); Creatinine Clr Calc Pharmacy 133.6; Estimated Glomerular Filt Rate > 60; Glucose Fasting 150 mg/dL (60-99); Potassium 3.2 mmol/l (3.3-5.1); Sodium 140 mmol/L (135-145)
[2020-02-12] MEDS: lisinopriL 20 MG TABLET PO (09:50)
[2020-02-12] MEDS: Potassium Chloride/H20 10 MEQ/100 ML PIGGYBACK 100 MEQ IV ×2 (10:45→11:46)
--- NOTE | 2020-02-12 11:19 | PM.PNCARD ---
Subjective Subjective Principal diagnosis: Atrial fibrillation Interval history: patient seen and examined at bedside. Patient having no cardiac complaints at time. Denies palpitations. He says his GI symptoms are better. Physical Exam Vital Signs and I&O: Vital Signs Temp 97.5 F 02/12/20 08:40 Pulse 92 02/12/20 09:50 Resp 18 02/12/20 08:40 BP 132/90 H 02/12/20 09:50 Pulse Ox 98 02/12/20 08:40 Intake & Output 02/11/20 02/12/20 02/12/20 18:59 06:59 18:59 Intake Total 814.667 / 1300.667 486 / 1300.667 50 / 50 Output Total 300 / 1900 1600 / 1900 Balance 514.667 / -599.333 -1114 / -599.333 50 / 50 Urine Output (Average ml/kg/hr) 0.26 1.01 1.01 Weight 209 lb 14.081 oz Intake: Intake, IV Amount 814.667 / 1300.667 486 / 1300.667 50 / 50 Piperacillin Sodium/Tazobactam 150 / 200 50 / 200 50 / 50 3.375 gm In 0.9 % Sodium Chloride 50 ml @ 100 mls/hr IV Q6H SHARI Rx#:[id number] Dextrose 5 % and 0.9 % NaCl 1, 564 / 1000 436 / 1000 000 ml @ 80 mls/hr IVCONT . [id number] SHARI Rx#:[id number] dilTIAZem HCL 125 mg In 0.9 % 100.667 / 100.667 Sodium Chloride 100 ml @ Per Protocol IVCONT .Q0M SHARI Rx#: [id number] Output: Output, Urine Amount 300 / 1450 1150 / 1450 Output, Stool Amount 100 / 100 Output, Gastric Drainage Amount 350 / 350 Right Nare 350 / 350 Other: NPO Yes Yes Urine Urinal Urine Color Yellow Stool Ostomy Stool Color Brown Stool Consistency Liquid Body Mass Index 34.9 Const General: cooperative, comfortable and no acute distress Orientation/consciousness: patient oriented x3 HENMT Head: Yes normal to inspection Eyes General: appearance normal, both eyes and all related structures Neck Neck: Yes trachea midline and Yes no JVD Chest Chest palpation & inspection: normal inspection of the chest Resp Effort & Inspection: normal respiratory effort Auscultation: clear to auscultation bilaterally and diminished lung sounds Cardio Rhythm: abnormal rhythm irregularly irregular Heart sounds: S1 normal heart sound present and S2 normal heart sound present GI Inspection: Yes distended Auscultation: Hypoactive bowel sounds present Skin General skin exam: no rashes or lesions noted Neuro General: patient oriented x3 and no focal motor deficits Extrem General: Yes no clubbing, cyanosis or edema Psych Appearance: grossly normal Progress Note: A&P Assessment and plan (1) Atrial fibrillation: Problem details: Atrial fibrillation, currently better rate control. Continue Lopressor and switch to 100 mg b.i.d.. Continue full oral anticoagulation may eventually switch to direct oral anticoagulants such as Eliquis 5 mg b.i.d. or Xarelto 20 mg daily. Continue to treat underlying medical/surgical illness. Will sign of the case. Will follow up as outpatient. Status: Acute Fall Risk Details Current Medications: Current Medications Generic Name Dose Route Start Last Admin Trade Name Freq PRN Reason Stop Dose Admin Acetaminophen 975 mg 02/10/20 00:00 Acetaminophen 325 Mg Tablet PO Q6H PRN Pain, Mild (Pain Scale 1-3)/fever/headache Albuterol Sulfate 2 puff 02/10/20 00:00 Albuterol Sulfate 90 Mcg 18 Gm Inhaler INHALE Q4H PRN Shortness of Breath Albuterol/Ipratropium 3 ml 02/10/20 00:00 Albuterol/Iprat 2.5/0.5mg 3 Ml Ampul.Neb INHALE RQ4H PRN Shortness of Breath Enoxaparin Sodium 95 mg 02/10/20 07:00 02/12/20 06:55 Enoxaparin Sodium 100 Mg/Ml Syringe 1 mg/kg (95 mg) 95 mg SUBCUT Administration Q12H SHARI Dextrose/Sodium Chloride 1,000 mls @ 80 mls/hr 02/10/20 13:30 02/12/20 00:56 D5ns IVCONT 80 mls/hr .[id number] [facility]I Administration Piperacillin Sod/Tazobactam 50 mls @ 100 mls/hr 02/10/20 01:00 02/12/20 07:20 Sod 3.375 gm/ Sodium Chloride IV Infused Q6H [facility]I Infusion Diltiazem HCl 125 mg/ Sodium 125 mls @ 0 mls/hr 02/10/20 08:00 02/11/20 13:42 Chloride IVCONT 0 mg/hr .Q0M SHARI 0 mls/hr Titration Protocol Per Protocol Multivitamins 17 ml/ Chromium/ 1,218.7 mls @ 50 mls/hr 02/11/20 18:00 02/11/20 18:16 Copper/Manganese/Zinc 1.7 ml/ IV 50 mls/hr Amino Acids/Electrolytes DAILY@1800 SHARI Administration Levalbuterol HCl 1.25 mg 02/10/20 00:00 Levalbuterol Hcl 1.25 Mg/3 Ml Vial.Neb INHALE Q4H PRN Shortness of Breath Lisinopril 20 mg 02/10/20 09:00 02/12/20 09:50 Lisinopril 20 Mg Tablet PO 20 mg DAILY SHARI Administration Protocol Metoprolol Tartrate 50 mg 02/10/20 00:00 02/12/20 06:46 Metoprolol Tartrate 50 Mg Tablet PO 50 mg Q6H SHARI Administration Protocol Morphine Sulfate 4 mg 02/10/20 00:00 Morphine Sulfate 4 Mg/Ml Cartridge IVPUSH Q4H PRN Pain, Severe (Pain Scale 7-10) Naloxone HCl 0.2 mg 02/10/20 00:00 Naloxone Hcl 0.4 Mg/Ml Vial IVPUSH Q2M PRN excessive sedation or RR <8 Ondansetron HCl 4 mg 02/10/20 00:00 Ondansetron Hcl 4 Mg/2 Ml Vial IVPUSH Q8H PRN Nausea Oxycodone HCl 5 mg 02/10/20 00:00 Oxycodone Hcl Immed Release 5 Mg Tablet PO Q4H PRN Pain, Moderate (Pain Scale 4-6 Oxycodone HCl 10 mg 02/10/20 00:00 Oxycodone Hcl Immed Release 5 Mg Tablet PO Q4H PRN Pain, Severe (Pain Scale 7-10) Pantoprazole Sodium 40 mg 02/10/20 06:30 02/12/20 06:46 Pantoprazole Sodium 40 Mg/10 Ml Vial IVPUSH 40 mg DAILY@0630 SHARI Administration Sodium Chloride 2 ml 02/10/20 00:00 02/12/20 06:46 0.9 % Sodium Chloride Flush 3 Ml Syringe IVFLUSH 2 ml QSHIFT [facility] Administration Time Spent With Patient Time: Total time spent is greater than 50% in coordination of care (as documented) at patient's floor/unit and/or counseling patient: Time with patient: 15 - 24 minutes Progress Note: Quality VTE Deep Vein Thrombosis/Pulmonary Embolism Present on Admission: No
--- NOTE | 2020-02-12 12:13 | PM.PNGS ---
Subjective Subjective Interval history: He reports that he feels okay. No nausea. He has not required any pain medication in a few days. He is taking a large amount of ice chips by mouth. Hungry. Physical Exam Vital Signs and I&O and Narrative: Vital Signs and I&O: Vital Signs Temp 97.5 F 02/12/20 08:40 Pulse 92 02/12/20 09:50 Resp 18 02/12/20 08:40 BP 132/90 H 02/12/20 09:50 Pulse Ox 98 02/12/20 08:40 Intake & Output 02/11/20 02/12/20 02/12/20 18:59 06:59 18:59 Intake Total 814.667 / 1300.667 486 / 1300.667 150 / 150 Output Total 300 / 1900 1600 / 1900 Balance 514.667 / -599.333 -1114 / -599.333 150 / 150 Urine Output (Aver age ml/kg/hr) 0.26 1.01 1.01 Weight 209 lb 14.081 oz Intake: Intake, IV Amoun t 814.667 / 1300.667 486 / 1300.667 150 / 150 Piperacillin S odium/Tazobactam 150 / 200 50 / 200 50 / 50 3.375 gm In 0. 9 % Sodium Chloride 50 ml @ 100 mls/hr IV Q6H [facility]I Rx#:[id number] Potassium Chlo ride/H20 10 meq 100 / 100 In 100 ml @ 10 0 mls/hr IV Q1H [facility]ARI Rx#:[id number] Dextrose 5 % a nd 0.9 % NaCl 1, 564 / 1000 436 / 1000 000 ml @ 80 ml s/hr IVCONT . [id number] [facility] Rx #:[id number] dilTIAZem HCL 125 mg In 0.9 % 100.667 / 100.667 Sodium Chlorid e 100 ml @ Per Protocol IVCON T .Q0M SHARI Rx#: [id number] Output: Output, Urine Am ount 300 / 1450 1150 / 1450 Output, Stool Am ount 100 / 100 Output, Gastric Drainage Amount 350 / 350 Right Nare 350 / 350 Other: NPO Yes Yes Urine Urinal Urine Color Yellow Stool Ostomy Stool Color Brown Stool Consistenc y Liquid Body Mass Index 34.9 Const: Other: BMP 02/12/20 06:18 Sodium 140 Potassium 3.2 L Chloride 104 Carbon Dioxide 28 BUN 8 L Creatinine 0.67 Calcium 7.6 L General: no acute distress and alert Resp: Effort & Inspection: normal respiratory effort Auscultation: clear to auscultation bilaterally Cardio: Rate: regular rate Rhythm: regular rhythm GI: Inspection: Yes incision ( thin bloody drainage lower aspect between josephine) Palpation (GI): Soft to palpation and nontender Auscultation: normal bowel sounds Skin: General skin exam: no rashes or lesions noted Psych: Mental Status: mental status grossly normal Progress Note: A&P Assessment and plan (1) Hypokalemia: Status: Acute Assessment and Plan: KCl bolus ordered, repeat labs in a.m. (2) Ileus following gastrointestinal surgery: Status: Acute Assessment and Plan: ileus appears to be resolving. NG output is high, but he is taking in a high volume of ice chips as well. Will clamp NG tube and observe. continue TPN (3) Stricture of sigmoid colon: Status: Acute Assessment and Plan: continue ostomy teaching Fall Risk Details Current Medications: Current Medications Generic Name Dose Route Start Last Admin Trade Name Freq PRN Reason Stop Dose Admin Acetaminophen 975 mg 02/10/20 00:00 Acetaminophen 325 Mg Tablet PO Q6H PRN Pain, Mild (Pain Scale 1-3)/fever/headache Albuterol Sulfate 2 puff 02/10/20 00:00 Albuterol Sulfate 90 Mcg 18 Gm Inhaler INHALE Q4H PRN Shortness of Breath Albuterol/Ipratropium 3 ml 02/10/20 00:00 Albuterol/Iprat 2.5/0.5mg 3 Ml Ampul.Neb INHALE RQ4H PRN Shortness of Breath Enoxaparin Sodium 95 mg 02/10/20 07:00 02/12/20 06:55 Enoxaparin Sodium 100 Mg/Ml Syringe 1 mg/kg (95 mg) 95 mg SUBCUT Administration Q12H SHARI Dextrose/Sodium Chloride 1,000 mls @ 80 mls/hr 02/10/20 13:30 02/12/20 00:56 D5ns IVCONT 80 mls/hr .[id number] SHARI Administration Piperacillin Sod/Tazobactam 50 mls @ 100 mls/hr 02/10/20 01:00 02/12/20 07:20 Sod 3.375 gm/ Sodium Chloride IV Infused Q6H SHARI Infusion Diltiazem HCl 125 mg/ Sodium 125 mls @ 0 mls/hr 02/10/20 08:00 02/11/20 13:42 Chloride IVCONT 0 mg/hr .Q0M SHARI 0 mls/hr Titration Protocol Per Protocol Multivitamins 17 ml/ Chromium/ 1,218.7 mls @ 50 mls/hr 02/11/20 18:00 02/11/20 18:16 Copper/Manganese/Zinc 1.7 ml/ IV 50 mls/hr Amino Acids/Electrolytes DAILY@1800 SHARI Administration Levalbuterol HCl 1.25 mg 02/10/20 00:00 Levalbuterol Hcl 1.25 Mg/3 Ml Vial.Neb INHALE Q4H PRN Shortness of Breath Lisinopril 20 mg 02/10/20 09:00 02/12/20 09:50 Lisinopril 20 Mg Tablet PO 20 mg DAILY SHARI Administration Protocol Metoprolol Tartrate 50 mg 02/10/20 00:00 02/12/20 06:46 Metoprolol Tartrate 50 Mg Tablet PO 50 mg Q6H SHARI Administration Protocol Morphine Sulfate 4 mg 02/10/20 00:00 Morphine Sulfate 4 Mg/Ml Cartridge IVPUSH Q4H PRN Pain, Severe (Pain Scale 7-10) Naloxone HCl 0.2 mg 02/10/20 00:00 Naloxone Hcl 0.4 Mg/Ml Vial IVPUSH Q2M PRN excessive sedation or RR <8 Ondansetron HCl 4 mg 02/10/20 00:00 Ondansetron Hcl 4 Mg/2 Ml Vial IVPUSH Q8H PRN Nausea Oxycodone HCl 5 mg 02/10/20 00:00 Oxycodone Hcl Immed Release 5 Mg Tablet PO Q4H PRN Pain, Moderate (Pain Scale 4-6 Oxycodone HCl 10 mg 02/10/20 00:00 Oxycodone Hcl Immed Release 5 Mg Tablet PO Q4H PRN Pain, Severe (Pain Scale 7-10) Pantoprazole Sodium 40 mg 02/10/20 06:30 02/12/20 06:46 Pantoprazole Sodium 40 Mg/10 Ml Vial IVPUSH 40 mg DAILY@0630 SHARI Administration Sodium Chloride 2 ml 02/10/20 00:00 02/12/20 06:46 0.9 % Sodium Chloride Flush 3 Ml Syringe IVFLUSH 2 ml QSHIFT [facility] Administration Time Spent With Patient Time: Total time spent is greater than 50% in coordination of care (as documented) at patient's floor/unit and/or counseling patient: Time with patient: 15 - 24 minutes Progress Note: Quality VTE Deep Vein Thrombosis/Pulmonary Embolism Present on Admission: No
--- NOTE | 2020-02-12 13:42 | HO.PM.IMPN ---
Subjective Subjective Interval History: patient seen and examined at bedside Denies palpitations. patient reporting some hiccups Physical Exam Vital Signs and I&O and Narrative: Vital Signs and I&O: Vital Signs Temp 97.8 F 02/12/20 12:00 Pulse 101 H 02/12/20 12:45 Resp 18 02/12/20 12:00 BP 143/96 H 02/12/20 12:45 Pulse Ox 97 02/12/20 12:00 Intake & Output 02/11/20 02/12/20 02/12/20 18:59 06:59 18:59 Intake Total 814.667 / 1300.667 486 / 5735.844 6840.333 / 1195.33 3 Output Total 300 / 1900 1600 / 1900 300 / 300 Balance 514.667 / -599.333 -1114 / -599.333 895.333 / 895.333 Urine Output (Aver age ml/kg/hr) 0.26 1.01 0.26 Weight 95.2 kg Intake: Intake, IV Amoun t 814.667 / 1300.667 486 / 9875.349 5788.333 / 1195.33 3 Piperacillin S odium/Tazobactam 150 / 200 50 / 200 50 / 50 3.375 gm In 0. 9 % Sodium Chloride 50 ml @ 100 mls/hr IV Q6H SHARI Rx#:[id number] Potassium Chlo ride/H20 10 meq 200 / 200 In 100 ml @ 10 0 mls/hr IV Q1H SHARI Rx#:[id number] Dextrose 5 % a nd 0.9 % NaCl 1, 564 / 1000 436 / 1000 945.333 / 945.333 000 ml @ 80 ml s/hr IVCONT . [id number] SHARI Rx #:[id number] dilTIAZem HCL 125 mg In 0.9 % 100.667 / 100.667 Sodium Chlorid e 100 ml @ Per Protocol IVCON T .Q0M SHARI Rx#: [id number] Output: Output, Urine Am ount 300 / 1450 1150 / 1450 300 / 300 Output, Stool Am ount 100 / 100 Output, Gastric Drainage Amount 350 / 350 Right Nare 350 / 350 Other: NPO Yes Yes Yes Number of Incont inent Voids 0 Urine Urinal Urine Color Yellow Stool Ostomy Stool Color Brown Stool Consistenc y Liquid Body Mass Index 34.9 Const: Other: awake, alert, NGT in place General: cooperative, comfortable, no acute distress, alert, awake, acute distress ( Appears uncomfortable) mild and other (uncomfortable appearing) Nutritional Appearance: overweight Orientation/consciousness: patient oriented x3 HENMT: Head: Yes normal to inspection, Yes normocephalic and Yes atraumatic Eyes: General: appearance normal, both eyes and all related structures Sclerae: sclerae normal Neck: Neck: Yes full ROM, Yes trachea midline and Yes no JVD Carotids: normal carotid upstroke Chest: Chest palpation & inspection: normal inspection of the chest Resp: Effort & Inspection: normal respiratory effort and symmetric chest movement Auscultation: clear to auscultation bilaterally and diminished lung sounds Cardio: Jugular venous distension: no JVD Palpation: normal PMI Rate: regular rate Rhythm: abnormal rhythm irregularly irregular Heart sounds: S1 normal heart sound present and S2 normal heart sound present Peripheral pulses: Peripheral pulses 2+ throughout GI: Other: ostomy beefy red, large amount of soft stool Inspection: Yes distended, Yes incision (clean) and Yes other (RODDY drain with dark output, scanty) Palpation (GI): Soft to palpation, Tenderness to palpation present (GI) (mild, surrounding incision) other (surrounding incision), no guarding, not rigid, No Rebound tenderness present and Other GI palpation findings present (much less distended, benign exam) Auscultation: Hypoactive bowel sounds present Skin: General skin exam: elasticity normal, turgor normal and other (normal color) Rashes: no rashes Neuro: General: patient oriented x3 and no focal motor deficits Extrem: General: Yes no clubbing, cyanosis or edema Psych: Appearance: grossly normal Mental Status: mental status grossly normal Speech and movement: Normal speech and movement present and Clear speech present Affect: Anxious affect present Thought content: Normal thought content present Insight: Good insight present (Psych) Objective Data Current Medications Generic Name Dose Route Start Last Admin Trade Name Freq PRN Reason Stop Dose Admin Acetaminophen 975 mg 02/10/20 00:00 Acetaminophen 325 Mg Tablet PO Q6H PRN Pain, Mild (Pain Scale 1-3)/fever/headache Albuterol Sulfate 2 puff 02/10/20 00:00 Albuterol Sulfate 90 Mcg 18 Gm Inhaler INHALE Q4H PRN Shortness of Breath Albuterol/Ipratropium 3 ml 02/10/20 00:00 Albuterol/Iprat 2.5/0.5mg 3 Ml Ampul.Neb INHALE RQ4H PRN Shortness of Breath Enoxaparin Sodium 95 mg 02/10/20 07:00 02/12/20 06:55 Enoxaparin Sodium 100 Mg/Ml Syringe 1 mg/kg (95 mg) 95 mg SUBCUT Administration Q12H SHARI Dextrose/Sodium Chloride 1,000 mls @ 80 mls/hr 02/10/20 13:30 02/12/20 12:45 D5ns IVCONT 80 mls/hr .[id number] SHARI Administration Piperacillin Sod/Tazobactam 50 mls @ 100 mls/hr 02/10/20 01:00 02/12/20 07:20 Sod 3.375 gm/ Sodium Chloride IV Infused Q6H [facility] Infusion Diltiazem HCl 125 mg/ Sodium 125 mls @ 0 mls/hr 02/10/20 08:00 02/11/20 13:42 Chloride IVCONT 0 mg/hr .Q0M SHARI 0 mls/hr Titration Protocol Per Protocol Multivitamins 17 ml/ Chromium/ 1,218.7 mls @ 50 mls/hr 02/11/20 18:00 02/11/20 18:16 Copper/Manganese/Zinc 1.7 ml/ IV 50 mls/hr Amino Acids/Electrolytes DAILY@1800 [facility] Administration Multivitamins 12 ml/ Chromium/ 2,013.2 mls @ 70 mls/hr 02/12/20 18:00 Copper/Manganese/Zinc 1.2 ml/ IV 02/13/20 17:59 Amino Acids/Electrolytes DAILY@1800 [facility] Levalbuterol HCl 1.25 mg 02/10/20 00:00 Levalbuterol Hcl 1.25 Mg/3 Ml Vial.Neb INHALE Q4H PRN Shortness of Breath Lisinopril 20 mg 02/10/20 09:00 02/12/20 09:50 Lisinopril 20 Mg Tablet PO 20 mg DAILY [facility] Administration Protocol Metoprolol Tartrate 50 mg 02/10/20 00:00 02/12/20 12:45 Metoprolol Tartrate 50 Mg Tablet PO 50 mg Q6H [facility]I Administration Protocol Morphine Sulfate 4 mg 02/10/20 00:00 Morphine Sulfate 4 Mg/Ml Cartridge IVPUSH Q4H PRN Pain, Severe (Pain Scale 7-10) Naloxone HCl 0.2 mg 02/10/20 00:00 Naloxone Hcl 0.4 Mg/Ml Vial IVPUSH Q2M PRN excessive sedation or RR <8 Ondansetron HCl 4 mg 02/10/20 00:00 Ondansetron Hcl 4 Mg/2 Ml Vial IVPUSH Q8H PRN Nausea Oxycodone HCl 5 mg 02/10/20 00:00 Oxycodone Hcl Immed Release 5 Mg Tablet PO Q4H PRN Pain, Moderate (Pain Scale 4-6 Oxycodone HCl 10 mg 02/10/20 00:00 Oxycodone Hcl Immed Release 5 Mg Tablet PO Q4H PRN Pain, Severe (Pain Scale 7-10) Pantoprazole Sodium 40 mg 02/10/20 06:30 02/12/20 06:46 Pantoprazole Sodium 40 Mg/10 Ml Vial IVPUSH 40 mg DAILY@0630 [facility] Administration Sodium Chloride 2 ml 02/10/20 00:00 02/12/20 06:46 0.9 % Sodium Chloride Flush 3 Ml Syringe IVFLUSH 2 ml QSHIFT [facility] Administration Labs CBC & Chem 7: 02/11/20 08:42 02/12/20 06:18 Labs: Laboratory Results - last 24 hr 02/12/20 06:18 Anion Gap 11 L Estim Creat Clear Calc 133.6 Estimated GFR > 60 Fasting Glucose 150 H D Calcium 7.6 L Quality VTE Deep Vein Thrombosis/Pulmonary Embolism Present on Admission: No Assessment and Plan (1) Stricture of sigmoid colon: Status: Acute Assessment and Plan: management as per surgery DVT prophyl axis Lovenox (2) Atrial fibrillation: Problem details: Status: Acute Assessment and Plan: AFib with RVR heart rate improving currently in 80s continue Cardizem drip as patient is NPO and with NG tube with wall suction monitor on telemetry cardiology following Continue Lovenox (3) Hypokalemia: Status: Acute Assessment and Plan: replaced monitor potassium (4) Ileus following gastrointestinal surgery: Status: Acute Assessment and Plan: continue NG tube to wall suction continue NPO as per surgery management as per surgery (5) S/P exploratory laparotomy: Status: Acute Assessment and Plan: management as per surgery
[2020-02-12 14:07] LABS: Magnesium 2.3 mg/dL (1.6-2.6)
[2020-02-12] MEDS: Throat Lozenge, Medicated LOZENGE 1 LOZENGE MUCOUS MEM ×2 (15:19→20:20)
[2020-02-13] VITALS (9 sets, daily range): BP systolic 128–151; BP diastolic 78–94; PULSE 86–110; RESP 18; TEMP 36.3–36.9; O2SAT 97–98
[2020-02-13] MEDS: Piperacillin Sodium/Tazobactam 3.375 GM in 0.9 % Sodium Chloride 50 ML IV ×4 (01:02→19:55)
[2020-02-13] MEDS: Dextrose 5 % and 0.9 % NaCl 1,000 ML 80 ML IVCONT (03:46)
[2020-02-13] MEDS: Metoprolol Tartrate 50 MG TABLET PO ×3 (06:22→17:51)
[2020-02-13] MEDS: Enoxaparin Sodium 100 MG/ML SYRINGE 95 MG SUBCUT ×2 (06:23→19:55)
[2020-02-13] MEDS: Pantoprazole Sodium 40 MG/10 ML VIAL IVPUSH (06:23)
[2020-02-13 07:23] LABS: Anion Gap 10 (12-20); Blood Urea Nitrogen 7 mg/dL (9-16); Calcium 7.7 mg/dL (8.4-10.2); Carbon Dioxide 29 mmol/L (22-29); Chloride 105 mmol/L (96-108); Creatinine Clr Calc Pharmacy 142.1; Estimated Glomerular Filt Rate > 60; Glucose Fasting 132 mg/dL (60-99); Potassium 3.3 mmol/l (3.3-5.1); Sodium 141 mmol/L (135-145)
[2020-02-13] MEDS: Throat Lozenge, Medicated LOZENGE 1 LOZENGE MUCOUS MEM ×3 (08:55→20:04)
[2020-02-13] MEDS: 0.9 % Sodium Chloride Flush 3 ML SYRINGE 2 ML IVFLUSH ×2 (08:55→16:43)
[2020-02-13 08:58] LABS: Hematocrit 29.5 % (42-52); Hemoglobin 9.3 g/dl (14.0-18.0); Mean Corpuscular HGB Conc 31.5 g/dl (31.0-36.0); Mean Corpuscular Hemoglobin 26.1 pg (27.0-33.0); Mean Corpuscular Volume 82.9 fL (80-98); Mean Platelet Volume 9.8 fL (9.4-12.4); NRBC Pct Auto 0.2 /100WBC (0.0-0.2); Platelet Count 508 X10*3/uL (160-400); Red Blood Count 3.56 X10*6/uL (4.60-5.80); Red Cell Distribution Width 15.4 % (11.0-16.0); White Blood Count 12.2 X10*3/uL (4.8-10.8)
[2020-02-13 09:26] LABS: Band Neutrophils Percent 11 % (3-5); Eosinophils Absolute Manual 0.2 X10*3/UL (0.0-0.8); Eosinophils Percent Manual 2 % (0-4); Lymphocytes Absolute Manual 1.7 X10*3/uL (0.6-4.8); Lymphocytes Percent Manual 14 % (20-40); Metamyelocytes Absolute 0.1 X10*3/uL; Metamyelocytes Percent 1 %; Monocytes Absolute Manual 0.6 X10*3/uL (0.0-1.2); Monocytes Percent Manual 5 % (2-11); Neutrophils Absolute Manual 9.5 X10*3/uL (2.2-7.9); Neutrophils Percent Manual 67 % (45-73)
[2020-02-13 09:27] LABS: Hypochromasia 1+; Microcytosis 1+
[2020-02-13 09:28] LABS: Acanthocytes 1+; Polychromasia 1+
[2020-02-13 09:29] LABS: Platelet Estimate INCREASED (NORMAL); Platelet Morphology Comment NORMAL
[2020-02-13 09:31] LABS: RBC Morphology NOTED
[2020-02-13] MEDS: lisinopriL 20 MG TABLET PO (09:34)
[2020-02-13 09:35] LABS: Nucleated Red Blood Cells 1 /100WBC (0-0)
[2020-02-13 10:15] LABS: Albumin Level 2.8 g/dL (3.5-5.0); Magnesium 2.2 mg/dL (1.6-2.6); Phosphorus 3.6 mg/dL (2.7-4.5); Triglycerides 162 mg/dL
--- NOTE | 2020-02-13 11:24 | PM.PNGS ---
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 He reports that he is having frequent hiccups. He feels hungry and would like to have the NG tube removed. He is not having any significant abdominal pain or bloating. Physical Exam Vital Signs and I&O and Narrative: Vital Signs and I&O: Vital Signs Temp 98.4 F 02/13/20 07:03 Pulse 92 02/13/20 09:34 Resp 18 02/13/20 07:03 BP 141/94 H 02/13/20 09:34 Pulse Ox 98 02/13/20 07:03 Intake & Output 02/12/20 02/13/20 02/13/20 18:59 06:59 18:59 Intake Total 1245.333 / 2395.33 3 1150 / 2395.333 Output Total 1800 / 3600 1800 / 3600 300 / 300 Balance -554.667 / -1204.6 67 -650 / -1204.667 -300 / -300 Urine Output (Aver age ml/kg/hr) 0.92 1.09 0.26 Intake: Intake, Oral [place] unt 0 / 0 Intake, IV Amoun t 1245.333 / 2395.33 3 1150 / 2395.333 Piperacillin S odium/Tazobactam 100 / 250 150 / 250 3.375 gm In 0. 9 % Sodium Chloride 50 ml @ 100 mls/hr IV Q6H SHARI Rx#:[id number] Potassium Chlo ride/H20 10 meq 200 / 200 In 100 ml @ 10 0 mls/hr IV Q1H SHARI Rx#:[id number] Dextrose 5 % a nd 0.9 % NaCl 1, 945.333 / 4156.715 5550 / 1945.333 000 ml @ 80 ml s/hr IVCONT . [id number] SHARI Rx #:[id number] Output: Output, Urine Am ount 1050 / 2300 1250 / 2300 300 / 300 Output, Stool Am ount 150 / 150 Output, Tube [place] unt 0 / 0 RODDY Drain 0 / 0 Output, Gastric Drainage Amount 750 / 1150 400 / 1150 Right Nare 750 / 1150 400 / 1150 Other: NPO Yes Yes Yes Number of Incont inent Voids 0 Urine Urinal Urinal Urine Color Kelsey Yellow Stool Ostomy Stool Color Brown Stool Consistenc y Liquid Body Mass Index 34.9 Const: Other: Laboratory Results - last 24 hr 02/12/20 02/13/20 02/13/20 06:18 06:20 06:20 WBC 12.2 H RBC 3.56 L Hgb 9.3 L Hct 29.5 L MCV 82.9 MCH 26.1 L MCHC 31.5 RDW 15.4 Plt Count 508 H MPV 9.8 Immature Gran % (A uto) Cancelled Neut % (Auto) Cancelled Lymph % (Auto) Cancelled [place] % (Auto) Cancelled Eos % (Auto) Cancelled Baso % (Auto) Cancelled Neut # (Auto) Cancelled Lymph # (Auto) Cancelled [place] # (Auto) Cancelled Eos # (Auto) Cancelled Baso # (Auto) Cancelled Abs Immat Gran (au to) Cancelled Absolute Nucleated RBC 0.030 H Nucleated RBC % (a uto) 0.2 Neutrophils % (Man ual) 67 Band Neutrophils % 11 H Lymphocytes % (Man ual) 14 L Monocytes % (Manua l) 5 Eosinophils % (Man ual) 2 Metamyelocytes % 1 Neutrophils # (Man ual) 9.5 H Lymphocytes # (Man ual) 1.7 Monocytes # (Manua l) 0.6 Eosinophils # (Man ual) 0.2 Metamyelocytes # 0.1 Nucleated RBCs 1 H Platelet Estimate INCREASED Plt Morphology Com ment NORMAL RBC Morphology NOTED Polychromasia 1+ Hypochromasia 1+ Microcytosis 1+ Acanthocytes (Spur ) 1+ Sodium 141 Potassium 3.3 Chloride 105 Carbon Dioxide 29 Anion Gap 10 L BUN 7 L Creatinine 0.63 Estim Creat Clear Calc 142.1 Estimated GFR > 60 Fasting Glucose 132 H Calcium 7.7 L Phosphorus 4.0 3.6 Magnesium 2.3 2.2 Albumin 2.8 L Triglycerides 162 out of bed sitting in chair, appears comfortable Resp: Effort & Inspection: normal respiratory effort Auscultation: clear to auscultation bilaterally Cardio: Rate: regular rate Rhythm: regular rhythm GI: Other: round, soft, nontender except centrally over incision moderate mildly bloody and seropurulent drainage on dressing, left lower quadrant Yash-Garcia drain output minimal and serosanguineous Skin: Other: normal color, warm and dry Psych: Mental Status: mental status grossly normal Progress Note: A&P Assessment and plan (1) Ileus following gastrointestinal surgery: Status: Acute Assessment and Plan: continues to have moderate output from his ostomy. Also has high output from the NG tube. It was clamped intermittently yesterday. Will leave clamped for 4 hours today and check output, likely will remove if output is low. Continue TPN. RODDY drain output has been low. RODDY removed today. He is reporting hiccups. This may be related to the NG tube. Will add chlorpromazine P.r.n.. (2) S/P exploratory laparotomy: Status: Acute (3) Stricture of sigmoid colon: Status: Acute (4) Hypokalemia: Status: Acute Assessment and Plan: Resolved. Potassium level is normal today , 3.3. Fall Risk Details Current Medications: Current Medications Generic Name Dose Route Start Last Admin Trade Name Freq PRN Reason Stop Dose Admin Acetaminophen 975 mg 02/10/20 00:00 Acetaminophen 325 Mg Tablet PO Q6H PRN Pain, Mild (Pain Scale 1-3)/fever/headache Albuterol Sulfate 2 puff 02/10/20 00:00 Albuterol Sulfate 90 Mcg 18 Gm Inhaler INHALE Q4H PRN Shortness of Breath Albuterol/Ipratropium 3 ml 02/10/20 00:00 Albuterol/Iprat 2.5/0.5mg 3 Ml Ampul.Neb INHALE RQ4H PRN Shortness of Breath Benzocaine 1 lozenge 02/12/20 14:50 02/13/20 08:55 Throat Lozenge, Medicated Lozenge MUCOUS MEM 1 lozenge Q2H PRN Administration Sore Throat Enoxaparin Sodium 95 mg 02/10/20 07:00 02/13/20 06:23 Enoxaparin Sodium 100 Mg/Ml Syringe 1 mg/kg (95 mg) 95 mg SUBCUT Administration Q12H SHARI Dextrose/Sodium Chloride 1,000 mls @ 80 mls/hr 02/10/20 13:30 02/13/20 03:46 D5ns IVCONT 80 mls/hr .[id number] SHARI Administration Piperacillin Sod/Tazobactam 50 mls @ 100 mls/hr 02/10/20 01:00 02/13/20 06:53 Sod 3.375 gm/ Sodium Chloride IV Infused Q6H [facility] Infusion Diltiazem HCl 125 mg/ Sodium 125 mls @ 0 mls/hr 02/10/20 08:00 02/11/20 13:42 Chloride IVCONT 0 mg/hr .Q0M SHARI 0 mls/hr Titration Protocol Per Protocol Multivitamins 17 ml/ Chromium/ 1,218.7 mls @ 50 mls/hr 02/11/20 18:00 02/12/20 18:25 Copper/Manganese/Zinc 1.7 ml/ IV Not Given Amino Acids/Electrolytes DAILY@1800 [facility] Multivitamins 12 ml/ Chromium/ 2,013.2 mls @ 70 mls/hr 02/12/20 18:00 02/12/20 18:06 Copper/Manganese/Zinc 1.2 ml/ IV 02/13/20 17:59 70 mls/hr Amino Acids/Electrolytes DAILY@1800 [facility] Administration Levalbuterol HCl 1.25 mg 02/10/20 00:00 Levalbuterol Hcl 1.25 Mg/3 Ml Vial.Neb INHALE Q4H PRN Shortness of Breath Lisinopril 20 mg 02/10/20 09:00 02/13/20 09:34 Lisinopril 20 Mg Tablet PO 20 mg DAILY [facility] Administration Protocol Metoprolol Tartrate 50 mg 02/10/20 00:00 02/13/20 06:22 Metoprolol Tartrate 50 Mg Tablet PO 50 mg Q6H [facility] Administration Protocol Morphine Sulfate 4 mg 02/10/20 00:00 Morphine Sulfate 4 Mg/Ml Cartridge IVPUSH Q4H PRN Pain, Severe (Pain Scale 7-10) Naloxone HCl 0.2 mg 02/10/20 00:00 Naloxone Hcl 0.4 Mg/Ml Vial IVPUSH Q2M PRN excessive sedation or RR <8 Ondansetron HCl 4 mg 02/10/20 00:00 Ondansetron Hcl 4 Mg/2 Ml Vial IVPUSH Q8H PRN Nausea Oxycodone HCl 5 mg 02/10/20 00:00 Oxycodone Hcl Immed Release 5 Mg Tablet PO Q4H PRN Pain, Moderate (Pain Scale 4-6 Oxycodone HCl 10 mg 02/10/20 00:00 Oxycodone Hcl Immed Release 5 Mg Tablet PO Q4H PRN Pain, Severe (Pain Scale 7-10) Pantoprazole Sodium 40 mg 02/14/20 06:30 Pantoprazole Sodium 40 Mg/10 Ml Vial IVPUSH DAILY@0630 SHARI Sodium Chloride 2 ml 02/10/20 00:00 02/13/20 08:55 0.9 % Sodium Chloride Flush 3 Ml Syringe IVFLUSH 2 ml QSHIFT SHARI Administration Time Spent With Patient Time: Total time spent is greater than 50% in coordination of care (as documented) at patient's floor/unit and/or counseling patient: Time with patient: 15 - 24 minutes Progress Note: Quality VTE Deep Vein Thrombosis/Pulmonary Embolism Present on Admission: No
[2020-02-13] MEDS: chlorproMAZINE HCl 10 MG TABLET PO ×2 (12:32→20:00)
--- NOTE | 2020-02-13 14:54 | P.PNIM_ITS ---
Subjective Subjective Interval History: patient seen and examined at bedside Denies palpitations. Physical Exam Vital Signs and I&O and Narrative: Vital Signs and I&O: Vital Signs Temp 98.3 F 02/13/20 13:28 Pulse 86 02/13/20 13:28 Resp 18 02/13/20 13:28 BP 128/78 02/13/20 12:32 Pulse Ox 97 02/13/20 13:28 Intake & Output 02/12/20 02/13/20 02/13/20 18:59 06:59 18:59 Intake Total 1245.333 / 2395.33 3 1150 / 2395.333 50 / 50 Output Total 1800 / 3600 1800 / 3600 301 / 301 Balance -554.667 / -1204.6 67 -650 / -1204.667 -251 / -251 Urine Output (Aver age ml/kg/hr) 0.92 1.09 0.26 Intake: Intake, Oral [place] unt 0 / 0 Intake, IV Amoun t 1245.333 / 2395.33 3 1150 / 2395.333 50 / 50 Piperacillin S odium/Tazobactam 100 / 250 150 / 250 50 / 50 3.375 gm In 0. 9 % Sodium Chloride 50 ml @ 100 mls/hr IV Q6H SHARI Rx#:[id number] Potassium Chlo ride/H20 10 meq 200 / 200 In 100 ml @ 10 0 mls/hr IV Q1H SHARI Rx#:[id number] Dextrose 5 % a nd 0.9 % NaCl 1, 945.333 / 3871.969 4131 / 1945.333 000 ml @ 80 ml s/hr IVCONT . [id number] SHARI Rx #:[id number] Output: Output, Urine Am ount 1050 / 2300 1250 / 2300 301 / 301 Output, Stool Am ount 150 / 150 Output, Tube [place] unt 0 / 0 RODDY Drain 0 / 0 Output, Gastric Drainage Amount 750 / 1150 400 / 1150 Right Nare 750 / 1150 400 / 1150 Other: NPO Yes Yes Yes Number of Incont inent Voids 0 Urine Urinal Urinal Urine Color Kelsey Yellow Stool Ostomy Stool Color Brown Stool Consistenc y Liquid Body Mass Index 34.9 Const: Other: awake, alert, NGT in place General: cooperative, comfortable, no acute distress, alert, awake, acute distress ( Appears uncomfortable) mild and other (uncomfortable appearing) Nutritional Appearance: overweight Orientation/consciousness: patient oriented x3 HENMT: Head: Yes normal to inspection, Yes normocephalic and Yes atraumatic Eyes: General: appearance normal, both eyes and all related structures Sclerae: sclerae normal Neck: Neck: Yes full ROM, Yes trachea midline and Yes no JVD Carotids: normal carotid upstroke Chest: Chest palpation & inspection: normal inspection of the chest Resp: Effort & Inspection: normal respiratory effort and symmetric chest movement Auscultation: clear to auscultation bilaterally and diminished lung sounds Cardio: Jugular venous distension: no JVD Palpation: normal PMI Rate: regular rate Rhythm: abnormal rhythm irregularly irregular Heart sounds: S1 normal heart sound present and S2 normal heart sound present Peripheral pulses: Peripheral pulses 2+ throughout GI: Other: ostomy beefy red, large amount of soft stool Inspection: Yes distended, Yes incision (clean) and Yes other (RODDY drain with dark output, scanty) Palpation (GI): Soft to palpation, Tenderness to palpation present (GI) (mild, surrounding incision) other (surrounding incision), no guarding, not rigid, No Rebound tenderness present and Other GI palpation findings present (much less distended, benign exam) Auscultation: Hypoactive bowel sounds present Skin: General skin exam: elasticity normal, turgor normal and other (normal color) Rashes: no rashes Neuro: General: patient oriented x3 and no focal motor deficits Extrem: General: Yes no clubbing, cyanosis or edema Psych: Appearance: grossly normal Mental Status: mental status grossly normal Speech and movement: Normal speech and movement present and Clear speech present Affect: Anxious affect present Thought content: Normal t hought content present Insight: Good insight present (Psych) Objective Data Current Medications Generic Name Dose Route Start Last Admin Trade Name Freq PRN Reason Stop Dose Admin Acetaminophen 975 mg 02/10/20 00:00 Acetaminophen 325 Mg Tablet PO Q6H PRN Pain, Mild (Pain Scale 1-3)/fever/headache Albuterol Sulfate 2 puff 02/10/20 00:00 Albuterol Sulfate 90 Mcg 18 Gm Inhaler INHALE Q4H PRN Shortness of Breath Albuterol/Ipratropium 3 ml 02/10/20 00:00 Albuterol/Iprat 2.5/0.5mg 3 Ml Ampul.Neb INHALE RQ4H PRN Shortness of Breath Benzocaine 1 lozenge 02/12/20 14:50 02/13/20 12:32 Throat Lozenge, Medicated Lozenge MUCOUS MEM 1 lozenge Q2H PRN Administration Sore Throat Chlorpromazine HCl 10 mg 02/13/20 11:35 02/13/20 12:32 Chlorpromazine Hcl 10 Mg Tablet PO 10 mg Q6H PRN Administration Hiccups Enoxaparin Sodium 95 mg 02/10/20 07:00 02/13/20 06:23 Enoxaparin Sodium 100 Mg/Ml Syringe 1 mg/kg (95 mg) 95 mg SUBCUT Administration Q12H SHARI Piperacillin Sod/Tazobactam 50 mls @ 100 mls/hr 02/10/20 01:00 02/13/20 13:11 Sod 3.375 gm/ Sodium Chloride IV Infused Q6H [facility] Infusion Diltiazem HCl 125 mg/ Sodium 125 mls @ 0 mls/hr 02/10/20 08:00 02/11/20 13:42 Chloride IVCONT 0 mg/hr .Q0M SHARI 0 mls/hr Titration Protocol Per Protocol Multivitamins 17 ml/ Chromium/ 1,218.7 mls @ 50 mls/hr 02/11/20 18:00 02/12/20 18:25 Copper/Manganese/Zinc 1.7 ml/ IV Not Given Amino Acids/Electrolytes DAILY@1800 [facility] Multivitamins 12 ml/ Chromium/ 2,013.2 mls @ 70 mls/hr 02/12/20 18:00 02/12/20 18:06 Copper/Manganese/Zinc 1.2 ml/ IV 02/13/20 17:59 70 mls/hr Amino Acids/Electrolytes DAILY@1800 [facility] Administration Multivitamins 10 ml/ Chromium/ 1,920 mls @ 80 mls/hr 02/13/20 18:00 Copper/Manganese/Zinc 1 ml/ IV 02/14/20 17:59 Amino Acids/Electrolytes DAILY@1800 [facility] Levalbuterol HCl 1.25 mg 02/10/20 00:00 Levalbuterol Hcl 1.25 Mg/3 Ml Vial.Neb INHALE Q4H PRN Shortness of Breath Lisinopril 20 mg 02/10/20 09:00 02/13/20 09:34 Lisinopril 20 Mg Tablet PO 20 mg DAILY [facility] Administration Protocol Metoprolol Tartrate 50 mg 02/10/20 00:00 02/13/20 12:32 Metoprolol Tartrate 50 Mg Tablet PO 50 mg Q6H [facility] Administration Protocol Morphine Sulfate 4 mg 02/10/20 00:00 Morphine Sulfate 4 Mg/Ml Cartridge IVPUSH Q4H PRN Pain, Severe (Pain Scale 7-10) Naloxone HCl 0.2 mg 02/10/20 00:00 Naloxone Hcl 0.4 Mg/Ml Vial IVPUSH Q2M PRN excessive sedation or RR <8 Ondansetron HCl 4 mg 02/10/20 00:00 Ondansetron Hcl 4 Mg/2 Ml Vial IVPUSH Q8H PRN Nausea Oxycodone HCl 5 mg 02/10/20 00:00 Oxycodone Hcl Immed Release 5 Mg Tablet PO Q4H PRN Pain, Moderate (Pain Scale 4-6 Oxycodone HCl 10 mg 02/10/20 00:00 Oxycodone Hcl Immed Release 5 Mg Tablet PO Q4H PRN Pain, Severe (Pain Scale 7-10) Pantoprazole Sodium 40 mg 02/14/20 06:30 Pantoprazole Sodium 40 Mg/10 Ml Vial IVPUSH DAILY@0630 [facility] Sodium Chloride 2 ml 02/10/20 00:00 02/13/20 08:55 0.9 % Sodium Chloride Flush 3 Ml Syringe IVFLUSH 2 ml QSHIFT [facility] Administration Labs CBC & Chem 7: 02/13/20 06:20 02/13/20 06:20 Labs: Laboratory Results - last 24 hr 02/13/20 02/13/20 06:20 06:20 MCV 82.9 MCH 26.1 L MCHC 31.5 RDW 15.4 Plt Count 508 H MPV 9.8 Immature Gran % (Auto) Cancelled Neut % (Auto) Cancelled Lymph % (Auto) Cancelled [place] % (Auto) Cancelled Eos % (Auto) Cancelled Baso % (Auto) Cancelled Neut # (Auto) Cancelled Lymph # (Auto) Cancelled [place] # (Auto) Cancelled Eos # (Auto) Cancelled Baso # (Auto) Cancelled Abs Immat Gran (auto) Cancelled Absolute Nucleated RBC 0.030 H Nucleated RBC % (auto) 0.2 Neutrophils % (Manual) 67 Band Neutrophils % 11 H Lymphocytes % (Manual) 14 L Monocytes % (Manual) 5 Eosinophils % (Manual) 2 Metamyelocytes % 1 Neutrophils # (Manual) 9.5 H Lymphocytes # (Manual) 1.7 Monocytes # (Manual) 0.6 Eosinophils # (Manual) 0.2 Metamyelocytes # 0.1 Nucleated RBCs 1 H Platelet Estimate INCREASED Plt Morphology Comment NORMAL RBC Morphology NOTED Polychromasia 1+ Hypochromasia 1+ Microcytosis 1+ Acanthocytes (Spur) 1+ Anion Gap 10 L Estim Creat Clear Calc 142.1 Estimated GFR > 60 Fasting Glucose 132 H Calcium 7.7 L Phosphorus 3.6 Magnesium 2.2 Albumin 2.8 L Triglycerides 162 Quality VTE Deep Vein Thrombosis/Pulmonary Embolism Present on Admission: No Assessment and Plan (1) Ileus following gastrointestinal surgery: Status: Acute (2) S/P exploratory laparotomy: Status: Acute (3) Stricture of sigmoid colon: Status: Acute (4) Hypokalemia: Status: Acute (5) Atrial fibrillation: Problem details: Status: Acute Assessment and Plan: AFib with RVR heart rate improving in 80s to 90s remain in AFib cardiology following continue Cardizem drip given patient NPO continue Lovenox stricture of sigmoid colo: Status post surgery complicated by postoperative I ileus currently NPO with NG tube to wall suction started on TPN management per surgery hypokalemia replaced and resolved monitor potassium DVT prophylaxi s Lovenox
--- NOTE | 2020-02-13 17:07 | PC.NURSE ---
Addendum entered by Sharmila Palacios RN 02/13/20 22:32: Pt tolerating clear liquid diet. no c/o pain, N/V. will continue to monitor Original Note: Ng tube clamped at 1030 via MD orders. Checked for residual, was 40ml. pt had no c/o any discomfort or n/v. Ng tube removed at 1630, pt tolerated well. Started on clear liquids for dinner, will continue to monitor.
[2020-02-14] VITALS (10 sets, daily range): BP systolic 122–134; BP diastolic 78–95; PULSE 90–111; RESP 18; TEMP 36.1–37.1; O2SAT 96–98
[2020-02-14] MEDS: Metoprolol Tartrate 50 MG TABLET PO ×4 (00:40→19:16)
[2020-02-14] MEDS: 0.9 % Sodium Chloride Flush 3 ML SYRINGE 2 ML IVFLUSH ×3 (00:40→16:07)
[2020-02-14] MEDS: Piperacillin Sodium/Tazobactam 3.375 GM in 0.9 % Sodium Chloride 50 ML IV ×4 (00:40→19:15)
[2020-02-14 06:17] LABS: Hematocrit 28.3 % (42-52); Hemoglobin 9.2 g/dl (14.0-18.0); Mean Corpuscular HGB Conc 32.5 g/dl (31.0-36.0); Mean Corpuscular Hemoglobin 26.6 pg (27.0-33.0); Mean Corpuscular Volume 81.8 fL (80-98); Mean Platelet Volume 9.8 fL (9.4-12.4); NRBC Pct Auto 0.2 /100WBC (0.0-0.2); Platelet Count 460 X10*3/uL (160-400); Red Blood Count 3.46 X10*6/uL (4.60-5.80); Red Cell Distribution Width 15.4 % (11.0-16.0); White Blood Count 10.6 X10*3/uL (4.8-10.8)
[2020-02-14] MEDS: Pantoprazole Sodium 40 MG/10 ML VIAL IVPUSH (06:25)
[2020-02-14] MEDS: Enoxaparin Sodium 100 MG/ML SYRINGE 95 MG SUBCUT ×2 (06:27→19:21)
[2020-02-14 06:51] LABS: Alanine Aminotransferase 52 U/L (0-40); Albumin Level 2.9 g/dL (3.5-5.0); Alkaline Phosphatase 110 U/L (39-117); Aspartate Amino Transferase 34 U/L (5-37); Bilirubin Direct 0.3 mg/dL (0.0-0.5); Bilirubin Total 0.5 mg/dL (0.0-1.0); Total Protein 5.7 g/dL (6.5-8.0)
[2020-02-14 06:54] LABS: Anion Gap 11 (12-20); Blood Urea Nitrogen 9 mg/dL (9-16); Calcium 7.7 mg/dL (8.4-10.2); Carbon Dioxide 28 mmol/L (22-29); Chloride 104 mmol/L (96-108); Creatinine Clr Calc Pharmacy 137.7; Estimated Glomerular Filt Rate > 60; Glucose Random 139 mg/dL (60-115); Potassium 3.5 mmol/l (3.3-5.1); Sodium 139 mmol/L (135-145)
[2020-02-14 07:00] LABS: Band Neutrophils Percent 5 % (3-5); Eosinophils Absolute Manual 0.3 X10*3/UL (0.0-0.8); Eosinophils Percent Manual 3 % (0-4); Lymphocytes Absolute Manual 0.7 X10*3/uL (0.6-4.8); Lymphocytes Percent Manual 7 % (20-40); Monocytes Absolute Manual 0.5 X10*3/uL (0.0-1.2); Monocytes Percent Manual 5 % (2-11); Neutrophils Percent Manual 80 % (45-73)
[2020-02-14 07:01] LABS: RBC Morphology NOTED
[2020-02-14 07:03] LABS: Acanthocytes 1+; Hypochromasia 1+; Platelet Estimate INCREASED (NORMAL); Platelet Morphology Comment NORMAL
--- NOTE | 2020-02-14 08:08 | PM.PNGS ---
Subjective Subjective Interval history: NGT removed yesterday and started on clear liquids. Had clear liquids last night without N/V. Continues to have good output from ostomy. Feels comfortable with care. <Chio Kiran PA-C - Last Filed: 02/14/20 08:19> Physical Exam Vital Signs and I&O and Narrative: Vital Signs and I&O: Vital Signs Temp 97.0 F 02/14/20 08:04 Pulse 91 02/14/20 08:04 Resp 18 02/14/20 08:04 BP 134/93 H 02/14/20 08:04 Pulse Ox 98 02/14/20 08:04 Intake & Output 02/13/20 02/14/20 02/14/20 18:59 06:59 18:59 Intake Total 2712.5 / 3702.5 990 / 3702.5 Output Total 301 / 1551 1250 / 1551 Balance 2411.5 / 2151.5 -260 / 2151.5 Urine Output (Aver age ml/kg/hr) 0.26 0.96 Intake: Intake, Oral Freya unt 840 / 840 Intake, IV Amoun t 2712.5 / 2862.5 150 / 2862.5 AA 5 %/Calcium /Lytes/Dext 15 % 1662.5 / 1662.5 2,000 ml @ 70 mls/hr IV DAILY@ 1800 [facility] with MVI, Adult 12 ml with Trace Jeannette ments 1.2 ml Rx#: [id number] Piperacillin S odium/Tazobactam 50 / 200 150 / 200 3.375 gm In 0. 9 % Sodium Chloride 50 ml @ 100 mls/hr IV Q6H [facility] Rx#:[id number] Dextrose 5 % a nd 0.9 % NaCl 1, 1000 / 1000 000 ml @ 80 ml s/hr IVCONT . [id number] [facility] Rx #:[id number] Output: Output, Urine Am ount 301 / 1401 1100 / 1401 Output, Stool Am ount 150 / 150 Other: NPO Yes Dinner % Eaten 75% Urine Urinal Urine Color Concentrated Last Bowel Movem ent 02/14/20 Stool Ostomy Stool Color Brown Stool Consistenc y Liquid Body Mass Index 34.9 <Chio Kiran PA-C - Last Filed: 02/14/20 08:19> Const: General: comfortable, no acute distress and alert <Chio Kiran PA-C Trish Last Filed: 02/14/20 08:19> Orientation/consciousness: patient oriented x3 <Chio Kiran PA-C Trish Last Filed: 02/14/20 08:19> Resp: Effort & Inspection: normal respiratory effort <Chio Kiran PA-C Trish Last Filed: 02/14/20 08:19> Cardio: Rate: regular rate <Chio Kiran PA-C Trish Last Filed: 02/14/20 08:19> GI: Inspection: Yes distended (mild, decreasing), Yes incision (some josephine removed centrally, no erythema, some drainage) and Yes other (ostomy beefy red, large amt of liquid stool) <Chio Kiran PA-C Trish Last Filed: 02/14/20 08:19> Palpation (GI): Soft to palpation, Tenderness to palpation present (GI) (mild incisional ), no guarding, not rigid and No Rebound tenderness present <Chio Kiran PA-C Trish Last Filed: 02/14/20 08:19> Skin: General skin exam: no rashes or lesions noted <Chio Kiran PA-C Trish Filed: 02/14/20 08:19> Neuro: General: patient oriented x3 <Chio Kiran PA-C Trish Last Filed: 02/14/20 08:19> Progress Note: A&P Assessment and plan (1) Atrial fibrillation: Problem details: <Chio Kiran PA-C Trish Last Filed: 02/14/20 08:19> Status: Acute <Chio Kiran PA-C Trish Last Filed: 02/14/20 08:19> (2) Ileus following gastrointestinal surgery: Status: Acute <Chio Kiran PA-C Trish Last Filed: 02/14/20 08:19> Assessment and Plan: Doing well. Ileus resolved, NGT removed yesterday and started on clear liquids. Will try full liquids today. Advance slowly as tolerated. Continue ostomy care, wound care. Dressing changed. Will cont TPN until PO intake increased. <Chio Kiran PA-C - Last Filed: 02/14/20 08:19> (3) S/P exploratory laparotomy: Status: Acute <Chio Kiran PA-C - Last Filed: 02/14/20 08:19> Assessment and Plan: POD #11 <Chio Kiran PA-C - Last Filed: 02/14/20 08:19> (4) Stricture of sigmoid colon: Status: Acute <Chio Kiran PA-C - Last Filed: 02/14/20 08:19> Assessment and Plan: doing well without NGT comfortable stoma functioning well abd soft incision opened yesterday due to drainage - currently clean, no pus rupal liquids, advance slowly stoma education seen and examined - agree with YASMIN Maria <Александр Rainey MD - Last Filed: 02/14/20 08:43> Fall Risk Details Current Medications: Current Medications Generic Name Dose Route Start Last Admin Trade Name Freq PRN Reason Stop Dose Admin Acetaminophen 975 mg 02/10/20 00:00 Acetaminophen 325 Mg Tablet PO Q6H PRN Pain, Mild (Pain Scale 1-3)/fever/headache Albuterol Sulfate 2 puff 02/10/20 00:00 Albuterol Sulfate 90 Mcg 18 Gm Inhaler INHALE Q4H PRN Shortness of Breath Albuterol/Ipratropium 3 ml 02/10/20 00:00 Albuterol/Iprat 2.5/0.5mg 3 Ml Ampul.Neb INHALE RQ4H PRN Shortness of Breath Benzocaine 1 lozenge 02/12/20 14:50 02/13/20 20:04 Throat Lozenge, Medicated Lozenge MUCOUS MEM 1 lozenge Q2H PRN Administration Sore Throat Chlorpromazine HCl 10 mg 02/13/20 11:35 02/13/20 20:00 Chlorpromazine Hcl 10 Mg Tablet PO 10 mg Q6H PRN Administration Hiccups Enoxaparin Sodium 95 mg 02/10/20 07:00 02/14/20 06:27 Enoxaparin Sodium 100 Mg/Ml Syringe 1 mg/kg (95 mg) 95 mg SUBCUT Administration Q12H [facility] Piperacillin Sod/Tazobactam 50 mls @ 100 mls/hr 02/10/20 01:00 02/14/20 06:56 Sod 3.375 gm/ Sodium Chloride IV Infused Q6H [facility] Infusion Diltiazem HCl 125 mg/ Sodium 125 mls @ 0 mls/hr 02/10/20 08:00 02/11/20 13:42 Chloride IVCONT 0 mg/hr .Q0M [facility] 0 mls/hr Titration Protocol Per Protocol Multivitamins 10 ml/ Chromium/ 1,920 mls @ 80 mls/hr 02/13/20 18:00 02/13/20 17:51 Copper/Manganese/Zinc 1 ml/ IV 02/14/20 17:59 80 mls/hr Amino Acids/Electrolytes DAILY@1800 [facility] Administration Levalbuterol HCl 1.25 mg 02/10/20 00:00 Levalbuterol Hcl 1.25 Mg/3 Ml Vial.Neb INHALE Q4H PRN Shortness of Breath Lisinopril 20 mg 02/10/20 09:00 02/13/20 09:34 Lisinopril 20 Mg Tablet PO 20 mg DAILY [facility] Administration Protocol Metoprolol Tartrate 50 mg 02/10/20 00:00 02/14/20 06:26 Metoprolol Tartrate 50 Mg Tablet PO 50 mg Q6H [facility] Administration Protocol Morphine Sulfate 4 mg 02/10/20 00:00 Morphine Sulfate 4 Mg/Ml Cartridge IVPUSH Q4H PRN Pain, Severe (Pain Scale 7-10) Naloxone HCl 0.2 mg 02/10/20 00:00 Naloxone Hcl 0.4 Mg/Ml Vial IVPUSH Q2M PRN excessive sedation or RR <8 Ondansetron HCl 4 mg 02/10/20 00:00 Ondansetron Hcl 4 Mg/2 Ml Vial IVPUSH Q8H PRN Nausea Oxycodone HCl 5 mg 02/10/20 00:00 Oxycodone Hcl Immed Release 5 Mg Tablet PO Q4H PRN Pain, Moderate (Pain Scale 4-6 Oxycodone HCl 10 mg 02/10/20 00:00 Oxycodone Hcl Immed Release 5 Mg Tablet PO Q4H PRN Pain, Severe (Pain Scale 7-10) Pantoprazole Sodium 40 mg 02/14/20 06:30 02/14/20 06:25 Pantoprazole Sodium 40 Mg/10 Ml Vial IVPUSH 40 mg DAILY@0630 [facility] Administration Sodium Chloride 2 ml 02/10/20 00:00 02/14/20 00:40 0.9 % Sodium Chloride Flush 3 Ml Syringe IVFLUSH 2 ml QSHIFT [facility] Administration <Chio Kiran PA-C - Last Filed: 02/14/20 08:19> Time Spent With Patient Time: Total time spent is greater than 50% in coordination of care (as documented) at patient's floor/unit and/or counseling patient: <Chio Kiran PA-C - Last Filed: 02/14/20 08:19> Time with patient: 15 - 24 minutes <MAURICE Yu Last Filed: 02/14/20 08:19> Progress Note: Quality VTE Deep Vein Thrombosis/Pulmonary Embolism Present on Admission: No <MAURICE Yu Last Filed: 02/14/20 08:19>
[2020-02-14] MEDS: lisinopriL 20 MG TABLET PO (08:22)
--- NOTE | 2020-02-14 13:15 | MHC.CLN ---
PT CONTINUES WITH TPN D15 AA5% AT 80CC/HR PROVIDES 1363KCALS, 96G PROTEIN (1.3G/KG) LIPIDS HELD DUE TO ELEVATED TRIGS-CONTINUE TO MONITOR DIET ADVANCED TO F/L FOLLOWING
[2020-02-14 13:30] LABS: Magnesium 2.3 mg/dL (1.6-2.6); Phosphorus 3.6 mg/dL (2.7-4.5); Triglycerides 152 mg/dL
--- NOTE | 2020-02-14 14:14 | PM.IMPN ---
Subjective Subjective Date of Service: 02/14/20 Interval History: Seen and examined this AM feeling good denies cardiac/abodminal symptoms Constitutional Constitutional: Denies chills and Denies fever(s) Cardiovascular Cardiovascular: Denies chest pain and Denies dyspnea Respiratory Respiratory: Denies cough and Denies dyspnea Gastrointestinal Gastrointestinal: Denies abdominal pain Physical Exam Vital Signs and I&O and Narrative: Vital Signs and I&O: Vital Signs Temp 97.8 F 02/14/20 11:48 Pulse 97 02/14/20 12:53 Resp 18 02/14/20 11:48 BP 132/79 02/14/20 12:53 Pulse Ox 97 02/14/20 11:48 Intake & Output 02/13/20 02/14/20 02/14/20 18:59 06:59 18:59 Intake Total 2712.5 / 3702.5 990 / 3702.5 50 / 50 Output Total 301 / 1551 1250 / 1551 Balance 2411.5 / 2151.5 -260 / 2151.5 50 / 50 Urine Output (Aver age ml/kg/hr) 0.26 0.96 0.96 Intake: Intake, Oral Freya unt 840 / 840 Intake, IV Amoun t 2712.5 / 2862.5 150 / 2862.5 50 / 50 AA 5 %/Calcium /Lytes/Dext 15 % 1662.5 / 1662.5 2,000 ml @ 70 mls/hr IV DAILY@ 1800 [facility] with MVI, Adult 12 ml with Trace Jeannette ments 1.2 ml Rx#: [id number] Piperacillin S odium/Tazobactam 50 / 200 150 / 200 50 / 50 3.375 gm In 0. 9 % Sodium Chloride 50 ml @ 100 mls/hr IV Q6H [facility] Rx#:[id number] Dextrose 5 % a nd 0.9 % NaCl 1, 1000 / 1000 000 ml @ 80 ml s/hr IVCONT . [id number] [facility] Rx #:[id number] Output: Output, Urine Am ount 301 / 1401 1100 / 1401 Output, Stool Am ount 150 / 150 Other: NPO Yes Dinner % Eaten 75% Urine Urinal Urine Color Concentrated Last Bowel Movem ent 02/14/20 Stool Ostomy Stool Color Brown Stool Consistenc y Liquid Body Mass Index 34.9 Const: General: comfortable and no acute distress Orientation/consciousness: patient oriented x3 Resp: Effort & Inspection: normal respiratory effort Auscultation: clear to auscultation bilaterally Cardio: Heart sounds: S1 normal heart sound present and S2 normal heart sound present GI: Palpation (GI): nontender Neuro: General: patient oriented x3 Objective Data Current Medications Generic Name Dose Route Start Last Admin Trade Name Freq PRN Reason Stop Dose Admin Acetaminophen 975 mg 02/10/20 00:00 Acetaminophen 325 Mg Tablet PO Q6H PRN Pain, Mild (Pain Scale 1-3)/fever/headache Albuterol Sulfate 2 puff 02/10/20 00:00 Albuterol Sulfate 90 Mcg 18 Gm Inhaler INHALE Q4H PRN Shortness of Breath Albuterol/Ipratropium 3 ml 02/10/20 00:00 Albuterol/Iprat 2.5/0.5mg 3 Ml Ampul.Neb INHALE RQ4H PRN Shortness of Breath Benzocaine 1 lozenge 02/12/20 14:50 02/13/20 20:04 Throat Lozenge, Medicated Lozenge MUCOUS MEM 1 lozenge Q2H PRN Administration Sore Throat Chlorpromazine HCl 10 mg 02/13/20 11:35 02/13/20 20:00 Chlorpromazine Hcl 10 Mg Tablet PO 10 mg Q6H PRN Administration Hiccups Enoxaparin Sodium 95 mg 02/10/20 07:00 02/14/20 06:27 Enoxaparin Sodium 100 Mg/Ml Syringe 1 mg/kg (95 mg) 95 mg SUBCUT Administration Q12H [facility] Piperacillin Sod/Tazobactam 50 mls @ 100 mls/hr 02/10/20 01:00 02/14/20 13:23 Sod 3.375 gm/ Sodium Chloride IV Infused Q6H [facility] Infusion Diltiazem HCl 125 mg/ Sodium 125 mls @ 0 mls/hr 02/10/20 08:00 02/11/20 13:42 Chloride IVCONT 0 mg/hr .Q0M [facility] 0 mls/hr Titration Protocol Per Protocol Multivitamins 10 ml/ Chromium/ 1,920 mls @ 80 mls/hr 02/13/20 18:00 02/13/20 17:51 Copper/Manganese/Zinc 1 ml/ IV 02/14/20 17:59 80 mls/hr Amino Acids/Electrolytes DAILY@1800 [facility] Administration Multivitamins 10 ml/ Chromium/ 1,920 mls @ 80 mls/hr 02/14/20 18:00 Copper/Manganese/Zinc 1 ml/ IV 02/15/20 17:59 Amino Acids/Electrolytes DAILY@1800 [facility] Levalbuterol HCl 1.25 mg 02/10/20 00:00 Levalbuterol Hcl 1.25 Mg/3 Ml Vial.Neb INHALE Q4H PRN Shortness of Breath Lisinopril 20 mg 02/10/20 09:00 02/14/20 08:22 Lisinopril 20 Mg Tablet PO 20 mg DAILY [facility] Administration Protocol Metoprolol Tartrate 50 mg 02/10/20 00:00 02/14/20 12:53 Metoprolol Tartrate 50 Mg Tablet PO 50 mg Q6H [facility] Administration Protocol Morphine Sulfate 4 mg 02/10/20 00:00 Morphine Sulfate 4 Mg/Ml Cartridge IVPUSH Q4H PRN Pain, Severe (Pain Scale 7-10) Naloxone HCl 0.2 mg 02/10/20 00:00 Naloxone Hcl 0.4 Mg/Ml Vial IVPUSH Q2M PRN excessive sedation or RR <8 Ondansetron HCl 4 mg 02/10/20 00:00 Ondansetron Hcl 4 Mg/2 Ml Vial IVPUSH Q8H PRN Nausea Oxycodone HCl 5 mg 02/10/20 00:00 Oxycodone Hcl Immed Release 5 Mg Tablet PO Q4H PRN Pain, Moderate (Pain Scale 4-6 Oxycodone HCl 10 mg 02/10/20 00:00 Oxycodone Hcl Immed Release 5 Mg Tablet PO Q4H PRN Pain, Severe (Pain Scale 7-10) Pantoprazole Sodium 40 mg 02/14/20 06:30 02/14/20 06:25 Pantoprazole Sodium 40 Mg/10 Ml Vial IVPUSH 40 mg DAILY@0630 [facility] Administration Sodium Chloride 2 ml 02/10/20 00:00 02/14/20 08:23 0.9 % Sodium Chloride Flush 3 Ml Syringe IVFLUSH 2 ml QSHIFT [facility] Administration Labs CBC & Chem 7: 02/14/20 05:43 02/14/20 05:43 Labs: Laboratory Results - last 24 hr 10/04/20 10/05/20 10/05/20 06:20 05:43 05:43 MCV 81.8 MCH 26.6 L MCHC 32.5 RDW 15.4 Plt Count 460 H MPV 9.8 Absolute Nucleated RBC 0.020 H Nucleated RBC % (auto) 0.2 Neutrophils % (Manual) 80 H Band Neutrophils % 5 Lymphocytes % (Manual) 7 L Monocytes % (Manual) 5 Eosinophils % (Manual) 3 Neutrophils # (Manual) 9.0 H Lymphocytes # (Manual) 0.7 Monocytes # (Manual) 0.5 Eosinophils # (Manual) 0.3 Platelet Estimate INCREASED Plt Morphology Comment NORMAL RBC Morphology NOTED Hypochromasia 1+ Acanthocytes (Spur) 1+ Smear Path Review SEE NOTE Anion Gap 11 L Estim Creat Clear Calc 137.7 Estimated GFR > 60 Random Glucose 139 H D Calcium 7.7 L Phosphorus Magnesium Total Bilirubin Direct Bilirubin AST ALT Alkaline Phosphatase Total Protein Albumin Triglycerides 02/14/20 05:43 MCV MCH MCHC RDW Plt Count MPV Absolute Nucleated RBC Nucleated RBC % (auto) Neutrophils % (Manual) Band Neutrophils % Lymphocytes % (Manual) Monocytes % (Manual) Eosinophils % (Manual) Neutrophils # (Manual) Lymphocytes # (Manual) Monocytes # (Manual) Eosinophils # (Manual) Platelet Estimate Plt Morphology Comment RBC Morphology Hypochromasia Acanthocytes (Spur) Smear Path Review Anion Gap Estim Creat Clear Calc Estimated GFR Random Glucose Calcium Phosphorus 3.6 Magnesium 2.3 Total Bilirubin 0.5 Direct Bilirubin 0.3 AST 34 ALT 52 H Alkaline Phosphatase 110 Total Protein 5.7 L Albumin 2.9 L Triglycerides 152 Progress Note: A&P (1) Atrial fibrillation: Problem details: Status: Acute Assessment and Plan: This is a 55 yo M who is admitted under the surgical services and is s/p ex-lap and sigmoid resection with loop colostomy. Medical services consulted for management of his medical issues. 1. A. Fib RVR s/p cardizem gtt now on metoprolol continue lovenox for now -- change to xarelto 20mg or eliquis 5mg bid when okay with surgery 2. hypoK repleted po, stable 3. Sigmoid colon stricture s/p surgery -- mgmt per surgery will follow as needed Quality VTE Deep Vein Thrombosis/Pulmonary Embolism Present on Admission: No
[2020-02-15] VITALS (8 sets, daily range): BP systolic 120–125; BP diastolic 76–88; PULSE 91–102; RESP 18; TEMP 35.8–37; O2SAT 97–98
[2020-02-15] MEDS: 0.9 % Sodium Chloride Flush 3 ML SYRINGE 2 ML IVFLUSH ×2 (00:25→09:58)
[2020-02-15] MEDS: Metoprolol Tartrate 50 MG TABLET PO ×2 (00:31→06:01)
[2020-02-15] MEDS: Piperacillin Sodium/Tazobactam 3.375 GM in 0.9 % Sodium Chloride 50 ML IV (00:32)
[2020-02-15] MEDS: Enoxaparin Sodium 100 MG/ML SYRINGE 95 MG SUBCUT (06:01)
[2020-02-15] MEDS: Pantoprazole Sodium 40 MG/10 ML VIAL IVPUSH (06:07)
--- NOTE | 2020-02-15 08:23 | PM.PNGS ---
Subjective Subjective Interval history: Did well yesterday. Tolerating full liquids. Denies nausea or vomiting, worsening pain. Ostomy functioning well and was emptied multiple times overnight. Feels hungry. <MAURIEC Yu Last Filed: 02/15/20 08:29> Physical Exam Vital Signs and I&O and Narrative: Vital Signs and I&O: Vital Signs Temp 97.1 F 02/15/20 07:37 Pulse 91 02/15/20 07:37 Resp 18 02/15/20 07:37 BP 123/76 02/15/20 07:37 Pulse Ox 97 02/15/20 07:37 Intake & Output 02/14/20 02/15/20 02/15/20 18:59 06:59 18:59 Intake Total 290 / 3150 2860 / 3150 Output Total 300 / 2750 2450 / 2750 Balance -10 / 400 410 / 400 Urine Output (Aver age ml/kg/hr) 1.31 Intake: Intake, Oral [place] unt 240 / 1080 840 / 1080 Intake, IV Amoun t 2069 AA 5 %/Calcium /Lytes/Dext 15 % 1919 / 1919 2,000 ml @ 80 mls/hr IV DAILY@ 1800 [facility] with MVI, Adult 10 ml with Trace Jeannette ments 1 ml Rx#: [id number] Piperacillin S odium/Tazobactam 50 / 150 100 / 150 3.375 gm In 0. 9 % Sodium Chloride 50 ml @ 100 mls/hr IV Q6H [facility] Rx#:[id number] Output: Output, Urine Am ount 1500 / 1500 Output, Stool Am ount 300 / 1250 950 / 1250 Other: Lunch % Eaten 100% Dinner % Eaten 50% Urine Urinal Urine Color Yellow Stool Ostomy Ostomy Stool Color Yellow Brown Stool Consistenc y 300 ml sto Liquid Body Mass Index 34.9 <MAURICE Yu Last Filed: 02/15/20 08:29> Const: General: comfortable, no acute distress and alert <MAURICE Yu Last Filed: 02/15/20 08:29> Orientation/consciousness: patient oriented x3 <MAURICE Yu Last Filed: 02/15/20 08:29> Eyes: Sclerae: sclerae normal <Chio QianaMAURICE alexandra Trish Last Filed: 02/15/20 08:29> Resp: Effort & Inspection: normal respiratory effort <Chio MAURICE Kiran Trish Filed: 02/15/20 08:29> Cardio: Rate: regular rate <Chio MAURICE Kiran Trish Last Filed: 02/15/20 08:29> GI: Inspection: Yes incision (josephine removed centrally, clean, no erythema or drainage) and Yes other (stoma red, stool and gas in appliance) <Chio MAURICE Kiran Trish Last Filed: 02/15/20 08:29> Palpation (GI): Soft to palpation, nontender, no guarding, not rigid and No Rebound tenderness present <Chio Kiran PA-C Trish Filed: 02/15/20 08:29> Skin: General skin exam: no rashes or lesions noted <Chio Kiran PA-C Trish Filed: 02/15/20 08:29> Neuro: General: patient oriented x3 <Chio Kiran PA-C Trish Filed: 02/15/20 08:29> Extrem: General: Yes no clubbing, cyanosis or edema <Chio Kiran PA-C Trish Filed: 02/15/20 08:29> Progress Note: A&P Assessment and plan (1) Atrial fibrillation: Problem details: <Chio Kiran PA-C Trish Filed: 02/15/20 08:29> Status: Acute <Chio Kiran PA-C Trish Filed: 02/15/20 08:29> (2) Ileus following gastrointestinal surgery: Status: Acute <Chio Kiran PA-C Trish Last Filed: 02/15/20 08:29> (3) S/P exploratory laparotomy: Status: Acute <Chio Kiran PA-C Trish Filed: 02/15/20 08:29> Assessment and Plan: Doing well, tolerating full liquids. Will advance to solid diet. Continue ostomy care, wound care. Dressing changed. D/c TPN today. D/c zosyn. Plan for home tomorrow with VNA services if tolerating solid diet and cleared by medicine. <Chio Kiran PA-C - Last Filed: 02/15/20 08:29> doing well good stoma function abd soft, not distended advance diet stoma teaching pt wants to go home later today will reeval later VNA seen and examined - agree with YASMIN Kiran <Александр Rainey MD - Last Filed: 02/15/20 09:56> (4) Stricture of sigmoid colon: Status: Acute <Chio Kiran PA-C - Last Filed: 02/15/20 08:29> Fall Risk Details Current Medications: Current Medications Generic Name Dose Route Start Last Admin Trade Name Freq PRN Reason Stop Dose Admin Acetaminophen 975 mg 02/10/20 00:00 Acetaminophen 325 Mg Tablet PO Q6H PRN Pain, Mild (Pain Scale 1-3)/fever/headache Albuterol Sulfate 2 puff 02/10/20 00:00 Albuterol Sulfate 90 Mcg 18 Gm Inhaler INHALE Q4H PRN Shortness of Breath Albuterol/Ipratropium 3 ml 02/10/20 00:00 Albuterol/Iprat 2.5/0.5mg 3 Ml Ampul.Neb INHALE RQ4H PRN Shortness of Breath Benzocaine 1 lozenge 02/12/20 14:50 02/13/20 20:04 Throat Lozenge, Medicated Lozenge MUCOUS MEM 1 lozenge Q2H PRN Administration Sore Throat Chlorpromazine HCl 10 mg 02/13/20 11:35 02/13/20 20:00 Chlorpromazine Hcl 10 Mg Tablet PO 10 mg Q6H PRN Administration Hiccups Enoxaparin Sodium 95 mg 02/10/20 07:00 02/15/20 06:01 Enoxaparin Sodium 100 Mg/Ml Syringe 1 mg/kg (95 mg) 95 mg SUBCUT Administration Q12H [facility] Diltiazem HCl 125 mg/ Sodium 125 mls @ 0 mls/hr 02/10/20 08:00 02/11/20 13:42 Chloride IVCONT 0 mg/hr .Q0M [facility] 0 mls/hr Titration Protocol Per Protocol Levalbuterol HCl 1.25 mg 02/10/20 00:00 Levalbuterol Hcl 1.25 Mg/3 Ml Vial.Neb INHALE Q4H PRN Shortness of Breath Lisinopril 20 mg 02/10/20 09:00 02/14/20 08:22 Lisinopril 20 Mg Tablet PO 20 mg DAILY [facility] Administration Protocol Metoprolol Tartrate 50 mg 02/10/20 00:00 02/15/20 06:01 Metoprolol Tartrate 50 Mg Tablet PO 50 mg Q6H [facility] Administration Protocol Naloxone HCl 0.2 mg 02/10/20 00:00 Naloxone Hcl 0.4 Mg/Ml Vial IVPUSH Q2M PRN excessive sedation or RR <8 Ondansetron HCl 4 mg 02/10/20 00:00 Ondansetron Hcl 4 Mg/2 Ml Vial IVPUSH Q8H PRN Nausea Pantoprazole Sodium 40 mg 02/14/20 06:30 02/15/20 06:07 Pantoprazole Sodium 40 Mg/10 Ml Vial IVPUSH 40 mg DAILY@0630 [facility] Administration Sodium Chloride 2 ml 02/10/20 00:00 02/15/20 00:25 0.9 % Sodium Chloride Flush 3 Ml Syringe IVFLUSH 2 ml QSHIFT [facility] Administration <Chio Kiran PA-C - Last Filed: 02/15/20 08:29> Time Spent With Patient Time: Total time spent is greater than 50% in coordination of care (as documented) at patient's floor/unit and/or counseling patient: <MAURICE Yu Last Filed: 02/15/20 08:29> Time with patient: 15 - 24 minutes <MAURICE Yu Last Filed: 02/15/20 08:29> Progress Note: Quality VTE Deep Vein Thrombosis/Pulmonary Embolism Present on Admission: No <MAURICE Yu Last Filed: 02/15/20 08:29>
[2020-02-15] MEDS: lisinopriL 20 MG TABLET PO (09:57)
--- NOTE | 2020-02-15 11:20 | W.MHC.F2F ---
Service Date Service Date: 02/15/20 Encounter Date of encounter: 02/16/20 Reasons for Services Reason for chcf: wound care (colostomy care) and postoperative assessment and/or care MD overseeing care: Александр Rainey MD Homebound: Leaving the home is medically contraindicated at this time without the asist of a device and/or another person due th the listed conditions above and below. Reason homebound: weakness related to hospital stay Homebound supporting statement: Mr. 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 His recovery course was complicated by a post operative ileus. He will require VNA for colostomy and incisional wound care. Certification: Based on the above findings, I certify that this patient is confined to the home and needs intermittent chcf care, physical therapy and/or speech therapy, or continues to need occupational therapy. The patient is under my care, and I have initiated the establishment of the plan of care. The patient will be followed by a physician who will periodically review the plan of care.
--- NOTE | 2020-02-15 11:21 | W.MHC.F2F ---
Service Date Service Date: 02/15/20 Reasons for Services overseeing care: Александр Rainey MD Homebound: Leaving the home is medically contraindicated at this time without the asist of a device and/or another person due th the listed conditions above and below. Patient is S/P sigmoid resection, colostomy. He has a stoma, and is just 12 days postop. Certification: Based on the above findings, I certify that this patient is confined to the home and needs intermittent residential care, physical therapy and/or speech therapy, or continues to need occupational therapy. The patient is under my care, and I have initiated the establishment of the plan of care. The patient will be followed by a physician who will periodically review the plan of care.
--- NOTE | 2020-02-15 12:58 | PM.DS ---
DS: Providers Provider Date of admission: 02/02/20 13:18 Primary care physician: Inga Chung MD Consults: 02/10/20 05:28 Consult to Cardiology Routine Consulting Provider: David Watts Reason for consultation: Abnormal EKG / risk stratification for intra-abdominal surgery Has provider been notified: Yes Consult to General Surgery Routine Consulting Provider: Yesenia De La Cruz Reason for consultation: ABD pain Consult to Hospitalist Routine Consulting Provider: Jonny Rodríguez Reason for consultation: HTN, hypokalemia DS: Diagnosis Discharge Diagnosis (1) Atrial fibrillation: Status: Acute Problem details: (2) Ileus following gastrointestinal surgery: Status: Acute (3) Stricture of sigmoid colon: Status: Acute (4) S/P exploratory laparotomy: Status: Acute DS: Summary Hospital Course Hospital Course: Brief HPI: 55-year-old male here in the emergency room because of abdominal pain and distention. He says that this started about 8 days ago. He describes this as some diffuse crampy abdominal pain. He says his abdomen has been distended for more than a week now. He says that the pain is not really severe at this time but is uncomfortable enough for him to go to the emergency room. He describes watery bowel movements. He says he has not had well-formed stools for a while now. He also says that he was diagnosed to have acute diverticulitis about 15 years ago. He has never had any colonoscopy in the past. He has had poor oral intake as well for the past week. His says he had vomiting on and off for the past 4 days but had refused to go to the hospital. His says he was told he had 3 episodes of diverticulitis before although there is no documentation with a CT scan. He had had issues with diarrhea and abdominal for many years now and his pain has always been on the left side. CT scan in the ED demonstrated diffuse distention of the colon all the way to the sigmoid without an obvious lesion with possible mural thickening of the wall of the sigmoid. There is still air past this although the lumen does not seem to be as distended as the proximal colon. The patient was admitted to the surgical service for the massively dilated colon and sigmoid obstruction, thought to be secondary to a diverticular stricture in view of his previous diverticulitis. He was initially managed with supportive measures to see if he improved with decompression and an NGT was inserted. However his pain and distention persisted and he did not feel improved. It was therefore recommended to proceed with emergent laparotomy, sigmoid resection and possible stoma. A hospitalist consult and a cardiology consult was obtained for pre operative evaluation and was deemed low to intermediate risk. On 02/03/20, laparotomy, extensive dissection of adhesions from the sigmoid colon and the pelvic sidewall and lateral gutter with resection of the sigmoid and creation of loop colostomy was performed by Dr. Александр Rainey without immediate complications. A yg lemos drain was placed intraoperatively. He tolerated the procedure well and was admitted to the medical/surgical floor for observation. A morphine GARMENT ALTERATION EXAMINER was initiated for post operative pain control. The patient had a lengthy recovery course complicated by the development of atrial fibrillation and a post op ileus. The patient was doing well initially but had a persistent tachycardia post op. An EKG was performed which showed atrial fibrillation with a RVR. He was transferred to [facility] for cardiac monitoring and started on a diltiazem drip. He began to pass flatus via his stoma on POD #4 with decreasing abdominal distention and pain. The NGT was removed and he was started on clear liquids. He was started on lovenox for anticoagulation and cardiology initiated metoprolol and slowly began to titrate up the dose. His G[employer] EXAMINER was discontinued the next day and transitioned to PRN analgesics. He began to pass stool from his ostomy. He developed a leukocytosis and vomiting and a CT scan was performed to evaluate for an abscess which revealed an ileus with a diffusely thickened colon, likely from severe edema and distension from preop. However there was concern for ischemia so a lactate was checked which was normal. His colostomy remained viable appearing and continued to function well. He was kept on clear liquids but resumed IVF for hydration given poor PO intake. IV zosyn was initiated empirically. The following day he had persistent nausea and vomiting and was increasingly distended from a post op ileus requiring NGT insertion with improvement. A PICC line was placed and TPN initiated for nutrition. NGT decompression was required for 3 days and was clamped and removed after having low residuals. His RODDY drain was also removed. He was started on clear liquids the following day and then full liquids. He was then advanced to a low residue diet and his TPN was discontinued. His WBC had normalized and the IV zosyn was also discontinued after 5 days of treatment. He was eventually tolerating a solid diet, his pain was controlled on PO analgesics, stoma functioning well. His incision was clean without erythema but was open centrally from where josephine were removed. His abdomen was benign and soft and NTND. He was comfortable with ostomy care. He felt ready for discharge. He was discharged to home on 02/15/20 in stable condition with VNA services. During the stay, his atrial fibrillation became better controlled with the metoprolol and diltiazem drip which was eventually discontinued. An echocardiogram was performed during his stay which revealed sinus rhythm, normal left and right ventricle with no ventricular wall motion abnormality but an overall LVEF between 60-65%. He was eventually transitioned to lopressor 100 mg PO BID and eliquis 5mg PO BID for oral anticoagulation. He is to follow up with cardiology upon discharge for further management. COLOSTOMY APPLIANCE: Coloplast #[id number], change q3-4 days and PRN. Status at Discharge Functional status at discharge: independent ambulation Overall status at discharge: patient is progressing back to baseline Time Spent with Patient Time attestation: Total time spent providing and/or coordinating discharge services: Time spent: Greater than 30 minutes Quality: VTE Deep Vein Thrombosis/Pulmonary Embolism Present on Admission: No Physical Exam Vital Signs and I&O and Narrative: Vital Signs and I&O: Vital Signs Temp 96.5 F L 02/15/20 12:00 Pulse 97 02/15/20 12:00 Resp 18 02/15/20 12:00 BP 124/76 02/15/20 12:00 Pulse Ox 98 02/15/20 12:00 Body Mass Index 34.9 Const: General: comfortable, no acute distress, well developed and alert Orientation/consciousness: patient oriented x3 Eyes: Sclerae: sclerae normal Resp: Effort & Inspection: normal respiratory effort Cardio: Rate: regular rate Rhythm: abnormal rhythm GI: Inspection: No distended, Yes incision (open centrally where josephine were removed, no erythema) and Yes other (stoma red, stool in bag) Palpation (GI): Soft to palpation, Tenderness to palpation present (GI) (very mild incisional tenderness), no guarding, not rigid and No Rebound tenderness present Auscultation: normal bowel sounds Skin: General skin exam: no rashes or lesions noted Neuro: General: patient oriented x3 Extrem: General: Yes no clubbing, cyanosis or edema DS: Data Data Completed and Pending Completed studies during hospitalization [Text1]: PATHOLOGY: SIGMOID COLON; diverticular-associated segmental colitis with marked stricture and abscess formation, viable tissue at resection margins, 2nd loop of bowel with serosal adhesions, no malignancy identified. Discharge Plan Discharge Patient Disposition: Home Health Service Referrals: [facility] [Outside] Inga Chung MD [Primary Care Provider] - David Watts MD [Physician] - 2 Weeks (f/u new onset Atrial fibrillation) Александр Rainey MD [Physician] - 1 Week Discharge Medications: New Eliquis 5 mg Tablet 5 mg PO BID Qty: 90 RF: 0 metoprolol tartrate [Lopressor] 100 mg tablet 100 mg PO BID Qty: 90 RF: 1 oxycodone-acetaminophen [Percocet] 5-325 mg tablet 1 - 2 tab PO Q4-6H PRN (Reason: pain) Qty: 26 RF: 0 Continued atorvastatin [Lipitor] 40 mg Tablet 40 mg PO BEDTIME RF: 0 lisinopril [Zestril] 20 mg Tablet 20 mg PO DAILY RF: 0 lorazepam [Ativan] 0.5 mg Tablet 0.5 mg PO DAILY RF: 0 omeprazole 20 mg Capsule,Delayed Release(Dr/Ec) 20 mg PO DAILY RF: 0 albuterol sulfate [Ventolin HFA] 90 mcg/actuation Hfa Aerosol Inhaler 2 puff INHALATION Q4H PRN (Reason: Shortness Of Breath) RF: 0 Discharge Orders: Discharge Order (Routine); Ordered 02/15/20 Ordered By: Александр Rainey Diet: regular diet Activity on Discharge: No heavy lifting Discharge Date/Time: 02/15/20 16:15 Print Language: Lithuanian Activity Restrictions/Additional Instructions: If the incision area is tender, you may apply an ice pack for short intervals (No more than 20 minutes on, followed by at least 20 minutes off). Do not apply heat. Do not use creams, lotions, or topical antibiotics unless instructed to do so by your surgeon. These can cause infection or allergic reaction. Ok to shower. You have josephine closing your incision and these will be removed at your post operative appointment in the office. Call Your Doctor If: -Your temperature exceeds 101.5? F -You experience excessive pain or swelling -You have an unexpected reaction to medication -You have excessive bleeding -You experience continued vomiting/nausea -Your incision begins to separate -Your incision shows signs of infection such as increased redness, swelling, excessive pain, drainage (light blood or clear fluid is normal) or heat Colostomy appliance: Coloplast #[id number]; change every 3-4 days and prn. Visit Report Forms: Patient Portal Discharge page Care Plan Goals: Return to baseline activity and health Health Concerns: New onset Atrial fibrillation, sigmoid obstruction secondary to diverticular stricture s/p ex lap, sigmoid resection, loop transverse colostomy creation Plan of Treatment: Colostomy care
--- NOTE | 2020-02-15 13:40 | PM.EVENT ---
Event Note Event Note: he continues to feel well tolerated breakfast and lunch abd remains soft, nondistended stoma functioning well HR well controlled he says he wants to go home and feels ready ok to dc home - dw Hospitalist service - on Eliquis, Metoprolol VNA services arranged pt given stoma care and wound care instructions to see me in the office next week
--- NOTE | 2020-02-15 18:13 | PM.IMPN ---
Subjective Subjective Date of Service: 02/15/20 Interval History: seen and examined this AM prior to him being discharged was feeling well explained to him re: khris dewey and his new meds -- metoprolol and eliquis (side effect profile discussed) Review of Systems General - no fevers or chills Cardiovascular - no chest pain Respiratory - no shortness of breath or cough Abdominal- no abdominal pain, nausea, vomiting, diarrhea Physical Exam Vital Signs and I&O and Narrative: Vital Signs and I&O: Vital Signs Temp 96.5 F L 02/15/20 12:00 Pulse 97 02/15/20 12:00 Resp 18 02/15/20 12:00 BP 124/76 02/15/20 12:00 Pulse Ox 98 02/15/20 12:00 Intake & Output 02/14/20 02/15/20 02/15/20 18:59 06:59 18:59 Intake Total 290 / 3150 2860 / 3150 1850 / 1850 Output Total 300 / 2750 2450 / 2750 Balance -10 / 400 410 / 400 1850 / 1850 Urine Output (Aver age ml/kg/hr) 1.31 1.31 Intake: Intake, Oral [place] unt 240 / 1080 840 / 1080 840 / 840 Intake, IV Amoun t 2069 1010 / 1010 AA 5 %/Calcium /Lytes/Dext 15 % 1010 / 1010 1,000 ml @ 80 mls/hr IV DAILY@ 1800 SHARI with MVI, Adult 10 ml Rx#:[id number] AA 5 %/Calcium /Lytes/Dext 15 % 1919 / 1919 2,000 ml @ 80 mls/hr IV DAILY@ 1800 SHARI with MVI, Adult 10 ml with Trace Jeannette ments 1 ml Rx#: [id number] Piperacillin S odium/Tazobactam 50 / 150 100 / 150 3.375 gm In 0. 9 % Sodium Chloride 50 ml @ 100 mls/hr IV Q6H SHARI Rx#:[id number] Output: Output, Urine Am ount 1500 / 1500 Output, Stool Am ount 300 / 1250 950 / 1250 Other: Lunch % Eaten 100% Dinner % Eaten 50% Urine Urinal Urine Color Yellow Stool Ostomy Ostomy Stool Color Yellow Brown Stool Consistenc y 300 ml sto Liquid Body Mass Index 34.9 General - no acute distress, appears comfortable Cardiovascular - IRR and rhythm, S1-S2 Lungs - normal respiratory effort, clear to auscultation bilaterally, no wheezing Abdomen - soft, nontender, no rebound regarding Extremities - no edema bilaterally Neuro - awake and alert, no focal deficits Objective Data Labs CBC & Chem 7: 02/14/20 05:43 02/14/20 05:43 Progress Note: A&P (1) Atrial fibrillation: Problem details: Status: Acute Assessment and Plan: This is a 55 yo M who is admitted under the surgical services and is s/p ex-lap and sigmoid resection with loop colostomy. Medical services consulted for management of his medical issues. 1. A. Fib RVR rate controlled d/c on meprolol -- can change to 100mg bid change lovenox to eliquis / xarelto will need f/u with cardiology - pt informed 2. hypoK repleted po, stable 3. Sigmoid colon stricture s/p surgery -- mgmt per surgery Quality VTE Deep Vein Thrombosis/Pulmonary Embolism Present on Admission: No
--- NOTE | 2020-02-17 14:24 | MHC.CM.PN ---
[facility] will see pt tomorrow spoke with agustin [phone] imfo faxed to [facility] thru [employer]
--- NOTE | 2020-02-17 15:15 | MHC.CM.PN ---
CM informed the pt does not have a VNA or ostomy supplies. CM arranged services through [facility] however they report they will need ostomy supplies. CM left a message for VNA liaison requesting a return call to coordinate pickling operator of supplies from hospital.
--- NOTE | 2020-02-17 15:46 | MHC.CM.PN ---
MALIA spoke to central [facility] about getting pt ostomy supplies. MALIA informed everyone had left for the day and would be back tomorrow at 0700. MALIA contacted pts , Donna, ([phone])and she agreed to come tomorrow morning to pear picker the supplies. MALIA will leave the supplies at main desk in the front lobby with Donna's name on them by [phone].
== END 2020-02-15 16:15 | disposition home health service (06) | DRG 231 ==
PROVIDERS: Internal Medicine; Physician Assistant Surgical; Surgery; Admitting Provider Surgery; Emergency Provider Nurse Practitioner Family; PCP Internal Medicine; Visit Provider Surgery
DX: K56.699 Other intestinal obstruction unspecified as to partial versus complete obstruction (principal); I48.91 Unspecified atrial fibrillation; K56.7 Ileus, unspecified; K66.0 Peritoneal adhesions (postprocedural) (postinfection); E78.5 Hyperlipidemia, unspecified; E87.6 Hypokalemia; J45.909 Unspecified asthma, uncomplicated; I10 Essential (primary) hypertension; Z79.899 Other long term (current) drug therapy
CPT/HCPCS: 36415; 36573; 71045; 74177; 80048; 80051; 80076; 81001; 82040; 82378; 82565; 82947; 83605; 83690; 83735; 84100; 84132; 84478; 84520; 85007; 85014; 85018; 85025; 85027; 85060; 85610; 86850; 86900; 86901; 87040; 88307; 90686; 93005; 93306; 96361; 96365; 96366; 96375; 96376; 99285; C1751; J0131; J0330; J1100; J1160; J1170; J1650; J2250; J2270; J2405; J2543; J3010; J3475; Q9957; Q9967

== ENCOUNTER → 2020-02-23 10:16 | Outpatient (BNVA) | payer OTHER, SELFPAY | PROVIDERS: PCP Internal Medicine; Visit Provider Surgery | DX: Z48.815 Encounter for surgical aftercare following surgery on the digestive system (principal); Z48.02 Encounter for removal of sutures; Z93.3 Colostomy status | CPT/HCPCS: 99212 ==

== ENCOUNTER → 2020-03-10 09:24 | Outpatient (REF) | payer OTHER, SELFPAY ==
--- NOTE | 2020-03-10 09:30 | ECG_ITS ---
Hook-up date: 2020-03-10 09:55:00 Duration: 47:59:00 Test Indications: UNSPEC AFIB Medications: 05826 QRS complexes 18 Ventricular ectopics which represent <1 % of total QRS comp. 3 Supraventricular ectopics which represent <1 % of total QRS comp. * Paced QRS complexs which represent % of total QRS comp. VENTRICULAR ECTOPY 5 Isolated 0 Bigeminal Cycles 1 Couplets 2 Runs 11 Beats in Runs 6 Beats LONGEST at 151 BPM at 08:14:34 2020-03-11 6 Beats FASTEST at 151 BPM at 08:14:34 2020-03-11 SUPRAVENTRICULAR ECTOPY 0 Isolated 0 Couplets 1 Runs 3 Beats in Runs 3 Beats LONGEST at 161 BPM at 19:11:22 2020-03-10 3 Beats FASTEST at 161 BPM at 19:11:22 2020-03-10 HEART RATES 45 MIN at 00:52:44 2020-03-11 58 AVG 89 MAX at 07:31:41 2020-03-11 LONGEST RR 1.5360 secs at 10:43:15 2020-03-10 S-T LEVELS Channel 1 - 128 mm at 09:55:00 2020-03-10 - 128 mm at 09:55:00 2020-03-10 Channel 2 - 128 mm at 09:55:00 2020-03-10 - 128 mm at 09:55:00 2020-03-10 Channel 3 - 128 mm at 02:91:41 -- - 128 mm at 02:91:41 Underlying rhythm is sinus; Average ventricular rate 58/min; range 45-89/min; About 80% of the time, ventricular rate <60/min; Very rare supraventricular ectopy; Rare ventricular ectopy - 2 short runs noted- longest 6 beats; Patient did not report any symptoms in the diary Referred By: Nitesh Rogers Overread By: LILI BOUDREAUX
== END ==
LOC: HO.CARD 09:24
PROVIDERS: Visit Provider Internal Medicine Cardiovascular Disease
DX: I48.91 Unspecified atrial fibrillation (principal)
CPT/HCPCS: 93226

== ENCOUNTER → 2020-03-15 10:17 | Outpatient (BNVA) | payer OTHER, SELFPAY | PROVIDERS: PCP Internal Medicine; Visit Provider Surgery | DX: Z48.815 Encounter for surgical aftercare following surgery on the digestive system (principal); Z93.3 Colostomy status | CPT/HCPCS: 99212 ==

== ENCOUNTER → 2020-03-28 11:31 | Outpatient (BNVA) | payer OTHER, SELFPAY | PROVIDERS: PCP Internal Medicine; Visit Provider Nurse Practitioner Family | DX: Z01.810 Encounter for preprocedural cardiovascular examination (principal); I48.0 Paroxysmal atrial fibrillation; R93.1 Abnormal findings on diagnostic imaging of heart and coronary circulation; Z93.3 Colostomy status | CPT/HCPCS: 99212 ==

== ENCOUNTER → 2020-04-13 11:14 | Outpatient (BNVA) | payer OTHER, SELFPAY | PROVIDERS: PCP Internal Medicine; Referring Provider Internal Medicine; Visit Provider Surgery | DX: K57.30 Diverticulosis of large intestine without perforation or abscess without bleeding (principal); Z93.3 Colostomy status | CPT/HCPCS: 99212 ==

== ENCOUNTER → 2020-04-18 10:58 | Outpatient (REF) | payer OTHER, SELFPAY ==
--- NOTE | 2020-04-18 11:07 | CA_ITS ---
Acquisition Time: 2020-04-18 11:31:31 Total Exercise Time: 00:06:58 Test Indications: AFIB Medications: SEE CHART Protocol: RADHA Max HR: 181 BPM 109% of Pred: 166 BPM Max BP: 181/082 mmHG Max Work Load: 8.4 METS Exercise stress ECHo using Radha protocol total of 6 min 58 sec. METS 8.4. MHR up to 181 and MAPHR up to 109%. Pt tolerated well. Denies any anginal sx. EKG with occ. PVC's without any sx. PAC's seen in recovery. No ischemic changes seen on EKG during exercise or in recovery. ECHO images taken at rest and immediatele after peak HR achieved. Definity contrast used. Normotensive response to exercise Test reviewed with Dr. Fu. Referred By: Migdalia Sharma Overread By: Eulalia Vizcaino
== END ==
LOC: HO.CARD 10:58
PROVIDERS: Visit Provider Nurse Practitioner Family
DX: I48.91 Unspecified atrial fibrillation (principal)
CPT/HCPCS: 93350; Q9957

== ENCOUNTER 2020-04-28 07:52 | Day surgery (SDC) | payer OTHER, SELFPAY ==
[2020-04-24 09:05] VITALS: BMI 31.4
--- NOTE | 2020-04-27 09:17 | HO.ANESPROP2 ---
Documented by User: Gena Neil 04/27/20 09:32 HPI - Anesthesia Eval Consult details Narrative: 55yo M for Colonoscopy via Rectum and Stoma OK'd to stop eliquis 48hours preop by cardiology [facility] Past Medical History Medical History Asthma Atrial fibrillation Colostomy in place Depression Diverticular disease of colon HTN (hypertension) On anticoagulant therapy Preop cardiovascular exam Wears dentures Surgical History Surgical History S/P exploratory laparotomy Social History Social History Alcohol intake: current Smoking Status: Never smoker Use of substances other than those prescribed or required for medical reasons: No Advance Directives Information Provided: No Recently lost weight without trying: No Meds Allergies Allergy/AdvReac Type Severity Reaction Status Date / Time No Known Allergies Allergy Verified 03/15/20 10:25 [No Known Allergies*] Home Medications Medication Instructions Recorded Confirmed Type albuterol sulfate [Ventolin HFA] 2 puff INHALATION Q4H PRN 02/09/20 04/24/20 History atorvastatin [Lipitor] 40 mg PO BEDTIME 02/09/20 04/24/20 History lisinopril [Zestril] 20 mg PO DAILY 02/09/20 04/24/20 History lorazepam [Ativan] 0.5 mg PO DAILY 02/09/20 04/24/20 History omeprazole 20 mg PO DAILY 02/09/20 04/24/20 History Exam Exam Date and Time: April 27, 2020 0917 Height,Weight and Vital Signs: Height 5 ft 5 in Weight 85.729 kg Pertinent Lab Results Pertinent Lab Results: Laboratory Tests 02/14/20 02/14/20 05:43 05:43 WBC 10.6 Hgb 9.2 L Hct 28.3 L Plt Count 460 H Sodium 139 Potassium 3.5 Chloride 104 Carbon Dioxide 28 BUN 9 Creatinine 0.65 Narrative Narrative: ECHO 02/2020: - The left ventricular systolic function is normal. The visually estimated ejection fraction is between 60-65%. - Mildly increased right ventricular cavity size. - No obvious valvular pathology seen on this study. - Mild pulmonary hypertension is present. Stress Echo 04/18/20: Exercise echocardiogram was reviewed. At rest, there is normal LVEF and wall motion. With peak exercise, there is no evidence of exercise induced wall motion abnormality; normal decrease in end-systolic volumes. Overall, this is a normal study. Holter 02/2020: Underlying rhythm is sinus; Average ventricular rate 58/min; range 45-89/min; About 80% of the time, ventricular rate <60/min; Very rare supraventricular ectopy; Rare ventricular ectopy - 2 short runs noted- longest 6 beats Assessment and Plan Assessment Anesthesia Assessment: Chart Reviewed Documented by User: Brandon Zheng 04/28/20 08:18 PMFSH Past Medical History Medical History Asthma Atrial fibrillation Colostomy in place Depression Diverticular disease of colon HTN (hypertension) On anticoagulant therapy Preop cardiovascular exam Wears dentures Family History Family history of problems with anesthesia: No Surgical History Surgical History S/P exploratory laparotomy History of Problems with Anesthesia: No Social History Social History Alcohol intake: current Smoking Status: Never smoker Use of substances other than those prescribed or required for medical reasons: No Advance Directives Information Provided: No Recently lost weight without trying: No Meds Allergies Allergy/AdvReac Type Severity Reaction Status Date / Time No Known Allergies Allergy Verified 03/15/20 10:25 [No Known Allergies*] Home Medications Medication Instructions Recorded Confirmed Type albuterol sulfate [Ventolin HFA] 2 puff INHALATION Q4H PRN 02/09/20 04/24/20 History atorvastatin [Lipitor] 40 mg PO BEDTIME 02/09/20 04/24/20 History lisinopril [Zestril] 20 mg PO DAILY 02/09/20 04/24/20 History lorazepam [Ativan] 0.5 mg PO DAILY 02/09/20 04/24/20 History omeprazole 20 mg PO DAILY 02/09/20 04/24/20 History Assessment and Plan Assessment Anesthesia Assessment: Anesthesia Plan Discussed and Chart Reviewed Final Anesthetic Review NPO: Yes ASA Class: III Final Preanesthetic Review: No Changes in Pt Med Stat, Meds/Allgs Chart Reviewed, Consent Obtained/Reviewed and Anes Risks/Benef Reviewed Patient Risk: Intermediate Procedure Risk: Low Anesthetic Plan Anesthetic Plan: MAC: and Agree w/ Assess. and Plan Disposition: Standard PACU
[2020-04-28 08:04] VITALS: BP 132/81; PULSE 61; RESP 16; TEMP 36.3; O2SAT 99
[2020-04-28] MEDS: Lactated Ringers 1,000 ML 100 ML IVCONT (08:16)
[2020-04-28 09:26] VITALS: BP 119/76; PULSE 59; RESP 16; TEMP 36.8; O2SAT 95
--- NOTE | 2020-04-28 09:26 | MHC.SHP ---
Pre-Procedural Eval Section B Chief Complaint: Diverticular Disease of Colon, Colostomy in place Allergies: Allergies Allergy/AdvReac Type Severity Reaction Status Date / Time No Known Allergies Allergy Verified 03/15/20 10:25 [No Known Allergies*] Plan I have reviewed the history and physical and performed a pertinent physical examination on my patient. No changes have occurred unless specified.
--- NOTE | 2020-04-28 09:26 | PM.OP ---
Brief Operative Note Date of Service: 04/28/20 Pre-op diagnosis: hx of sigmoid resection, loop colostomy Post-op diagnosis: other (diverticulosis, otherwise normal) Procedure: colonoscopy via stoma and rectum Surgeon: Александр Rainey MD Anesthesia: MAC Estimated blood loss (mL): 0 Pathology: none sent Condition: stable Disposition: PACU
[2020-04-28 09:41] VITALS: BP 116/86; PULSE 59; RESP 16; TEMP 36.8; O2SAT 98
--- NOTE | 2020-04-28 10:05 | HO.POSTANES ---
Post Anesthesia Evaluation Post Anesthesia Evaluation Vital Signs: Vital Signs Temp Pulse Resp BP Pulse Ox 04/28/20 09:41 98.2 F 59 16 116/86 98 04/28/20 09:26 98.2 F 59 16 119/76 95 04/28/20 08:04 97.3 F 61 16 132/81 99 Anesthesia: Monitored Mental Status: Awake Pain Control: Satisfactory Nausea/Vomiting: None Hydration: Adequate Anesthesia-Related Issues: No Anes. Related Issues
--- NOTE | 2020-04-28 10:17 | OP_ITS ---
SURGEON: Александр Rainey MD INDICATIONS: The patient is a 55-year-old male, who had undergone emergency sigmoid resection for obstructing diverticular stricture in January 2020. He has recovered well from the procedure and he is scheduled for colonoscopy prior to planned reversal. He understood the technique of colonoscopy via the stoma and the rectum. He was aware of the risks, benefits, and alternatives. PREOPERATIVE DIAGNOSIS: POSTOPERATIVE DIAGNOSIS: PROCEDURE PERFORMED: Colonoscopy via the rectum and the stoma. ESTIMATED BLOOD LOSS: COMPLICATIONS: ANESTHESIA: ASSISTANTS: SPECIMENS: PREOPERATIVE DIAGNOSES: History of sigmoid resection, transverse loop colostomy for diverticular stricture. 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 DESCRIPTION OF PROCEDURE: He was brought to the operating room and placed in left lateral decubitus position under monitored anesthesia care. A surgical time-out was done. A full digital rectal exam was done. There were no palpable anal canal lesions. The tip of the Olympus colonoscope was introduced gently through the anal orifice and advanced into the beginning of the rectal pouch. There was note of a lot of inspissated mucus. There was note of diversion proctitis, but no lesions seen. We were able to reach the very end of the rectal pouch which was about 28 cm long. We withdrew carefully and desufflated and again careful examination of the rectal pouch was done and without note of any lesion or any diverticuli. After this was achieved, we proceeded to then do the colonoscopy via the both efferent and afferent limbs of the loop colostomy. The patient was placed in supine position. We gently inserted the scope into the efferent limb and carefully advanced to very end. Again, there was note of some diversion colitis on this limb but there were no lesions seen. We carefully examined the entire distal limb. There was note of some diversion colitis, but there were no lesions. There was no polyps seen here and there was no obvious diverticulosis. There was no diverticulosis seen either in the rectal pouch area. After careful examination of the this distal limb, proceeded then inserted the camera into the proximal limb. This was inserted gently with insufflation all the way to the cecum. The cecum was identified by visualization of the ileocecal valve as well as appendiceal orifice. The cecal mucosa was unremarkable. The scope was gradually withdrawn with careful examination of the rest of mucosa of the colon being done with scope withdrawal. There was note of occasional diverticula. There were no lesions, no polyps seen. The scope was then withdrawn completely with de-sufflation. The patient tolerated procedure well. There were no complications noted. We will plan on reversing this stoma and discussed this with the patient in the office. MD CAMILLE Baptiste/CLIFTON / [id number] MTDD
== END 2020-04-28 13:09 ==
LOC: HO.SSS 07:52
PROVIDERS: PCP Internal Medicine; Visit Provider Surgery
PROC: 0DJD8ZZ Inspection of Lower Intestinal Tract, Via Natural or Artificial Opening Endoscopic (ICD-10-PCS; CPT 45378; principal; 2020-04-28 09:00)
DX: Z12.11 Encounter for screening for malignant neoplasm of colon (principal); Z93.3 Colostomy status; K57.30 Diverticulosis of large intestine without perforation or abscess without bleeding; K62.89 Other specified diseases of anus and rectum; K52.9 Noninfective gastroenteritis and colitis, unspecified; I48.91 Unspecified atrial fibrillation; I10 Essential (primary) hypertension; J45.909 Unspecified asthma, uncomplicated; Z79.01 Long term (current) use of anticoagulants; Z79.899 Other long term (current) drug therapy
CPT/HCPCS: 44388; 45330

== ENCOUNTER → 2020-05-11 09:21 | Outpatient (BNVA) | payer OTHER, SELFPAY | PROVIDERS: PCP Internal Medicine; Visit Provider Surgery | DX: K57.30 Diverticulosis of large intestine without perforation or abscess without bleeding (principal); Z93.3 Colostomy status | CPT/HCPCS: 99212 ==

== ENCOUNTER → 2020-05-22 10:38 | Outpatient (BNVA) | payer OTHER, SELFPAY | PROVIDERS: PCP Internal Medicine; Visit Provider Internal Medicine | DX: Z01.810 Encounter for preprocedural cardiovascular examination (principal); I48.0 Paroxysmal atrial fibrillation; I10 Essential (primary) hypertension | CPT/HCPCS: 93005; 99212 ==

== ENCOUNTER 2020-06-06 06:03 | Inpatient (IN) | payer OTHER, SELFPAY ==
[2020-05-30 10:02] VITALS: BMI 33.4
--- NOTE | 2020-05-30 13:16 | HO.ANESPROP2 ---
Documented by User: Gena Neil 05/30/20 13:28 HPI - Anesthesia Eval Consult details Narrative: 55yo M for Colostomy Closure,sigmoid to rectum Cardiac cleared @ low risk S/P bowel resect 01/2020 for divertic and obstruct, post op afib eliquis PMFSH Past Medical History Medical History Asthma Atrial fibrillation Colostomy in place Depression Diverticular disease of colon Essential hypertension HTN (hypertension) On anticoagulant therapy PAF (paroxysmal atrial fibrillation) Wears dentures Surgical History Surgical History Hx of colonoscopy S/P exploratory laparotomy Social History Social History Are you a primary geriatric care manager to a significant other at home: No Do you presently have visiting nurse or other home services: No (Had [facility] initially after 01/2020 Surgery for assist with Colostomy Care) Alcohol intake: current Smoking Status: Never smoker Second Hand Smoke Exposure: No Use of substances other than those prescribed or required for medical reasons: No Have you been hit, kicked, punched, or otherwise hurt by someone within the past year? If so, by whom?: No Advance Directives: No Advance Directives Information Provided: No Advance Directives on File: No Recently lost weight without trying: No Meds Allergies Allergy/AdvReac Type Severity Reaction Status Date / Time No Known Allergies Allergy Verified 05/30/20 09:25 [No Known Allergies*] Home Medications Medication Instructions Recorded Confirmed Type albuterol sulfate [Ventolin HFA] 2 puff INHALATION Q4H PRN 02/09/20 05/30/20 History atorvastatin [Lipitor] 40 mg PO BEDTIME 02/09/20 05/30/20 History lisinopril [Zestril] 20 mg PO DAILY 02/09/20 05/30/20 History lorazepam [Ativan] 0.5 mg PO DAILY PRN 02/09/20 05/30/20 History omeprazole 20 mg PO DAILY 02/09/20 05/30/20 History Exam Exam Date and Time: May 30, 2020 1316 Height,Weight and Vital Signs: Height 5 ft 5 in Weight 91.172 kg Narrative Narrative: EKG 05/2020: SB @54, no significant ST-T changes and otherwise unremarkable Echo 02/2020 Conclusions: - The left ventricular systolic function is normal. The visually estimated ejection fraction is between 60-65%. - Mildly increased right ventricular cavity size. - No obvious valvular pathology seen on this study. - Mild pulmonary hypertension is present. Stress Echo 04/18/20: Exercise echocardiogram was reviewed. At rest, there is normal LVEF and wall motion. With peak exercise, there is no evidence of exercise induced wall motion abnormality; normal decrease in end-systolic volumes. Overall, this is a normal study. Holter 02/2020: Underlying rhythm is sinus; Average ventricular rate 58/min; range 45-89/min; About 80% of the time, ventricular rate <60/min; Very rare supraventricular ectopy; Rare ventricular ectopy - 2 short runs noted- longest 6 beats Assessment and Plan Assessment Anesthesia Assessment: Chart Reviewed Documented by User: Hannah Lee 06/06/20 11:46 [facility] Past Medical History Medical History Asthma Atrial fibrillation Colostomy in place Depression Diverticular disease of colon Essential hypertension HTN (hypertension) On anticoagulant therapy PAF (paroxysmal atrial fibrillation) Wears dentures Family History Family history of problems with anesthesia: No Surgical History Surgical History Hx of colonoscopy S/P exploratory laparotomy History of Problems with Anesthesia: No Social History Social History Are you a primary geriatric care manager to a significant other at home: No Do you presently have visiting nurse or other home services: No (Had [facility]NA initially after 01/2020 Surgery for assist with Colostomy Care) Alcohol intake: current Smoking Status: Never smoker Second Hand Smoke Exposure: No Use of substances other than those prescribed or required for medical reasons: No Have you been hit, kicked, punched, or otherwise hurt by someone within the past year? If so, by whom?: No Advance Directives: No Advance Directives Information Provided: No Advance Directives on File: No Recently lost weight without trying: No Meds Allergies Allergy/AdvReac Type Severity Reaction Status Date / Time No Known Allergies Allergy Verified 05/30/20 09:25 [No Known Allergies*] Home Medications Medication Instructions Recorded Confirmed Type albuterol sulfate [Ventolin HFA] 2 puff INHALATION Q4H PRN 02/09/20 05/30/20 History atorvastatin [Lipitor] 40 mg PO BEDTIME 02/09/20 05/30/20 History lisinopril [Zestril] 20 mg PO DAILY 02/09/20 05/30/20 History lorazepam [Ativan] 0.5 mg PO DAILY PRN 02/09/20 05/30/20 History omeprazole 20 mg PO DAILY 02/09/20 05/30/20 History Exam Height,Weight and Vital Signs: Vital Signs Temp Pulse Resp BP Pulse Ox 06/06/20 09:23 97 F 59 18 127/69 98 Pertinent Lab Results Pertinent Lab Results: Lab Results 06/06/20 06/06/20 06/06/20 Range/Units 08:55 09:20 10:07 WBC 6.1 (4.8-10.8) X10*3/uL RBC 5.01 D (4.60-5.80) X10*6/uL Hgb 12.4 L D (14.0-18.0) g/dl Hct 39.6 L D (42-52) % MCV 79.0 L (80-98) fL MCH 24.8 L (27.0-33.0) pg MCHC 31.3 (31.0-36.0) g/dl RDW 16.9 H (11.0-16.0) % Plt Count 196 D (160-400) X10*3/uL MPV 10.2 (9.4-12.4) fL Absolute Nucleated RBC 0.000 (0.0-0.012) X10*3/uL Nucleated RBC % (auto) 0.0 (0.0-0.2) /100WBC Sodium (135-145) mmol/L Potassium (3.3-5.1) mmol/l Chloride (96-108) mmol/L Carbon Dioxide (22-29) mmol/L Anion Gap (12-20) BUN (9-16) mg/dL Creatinine (0.5-1.4) mg/dL Estim Creat Clear Calc Estimated GFR Fasting Glucose (60-99) mg/dL Calcium (8.4-10.2) mg/dL COVID-19 (ARELIS) Negative (Negative) COVID-19 [employer] [facility] See Note Blood Type O Positive Antibody Screen NEGATIVE 06/06/20 Range/Units 10:07 WBC (4.8-10.8) X10*3/uL RBC (4.60-5.80) X10*6/uL Hgb (14.0-18.0) g/dl Hct (42-52) % MCV (80-98) fL MCH (27.0-33.0) pg MCHC (31.0-36.0) g/dl RDW (11.0-16.0) % Plt Count (160-400) X10*3/uL MPV (9.4-12.4) fL Absolute Nucleated RBC (0.0-0.012) X10*3/uL Nucleated RBC % (auto) (0.0-0.2) /100WBC Sodium 139 (135-145) mmol/L Potassium 4.5 D (3.3-5.1) mmol/l Chloride 103 (96-108) mmol/L Carbon Dioxide 27 (22-29) mmol/L Anion Gap 14 (12-20) BUN 9 (9-16) mg/dL Creatinine 0.73 (0.5-1.4) mg/dL Estim Creat Clear Calc 120.0 Estimated GFR > 60 Fasting Glucose 99 (60-99) mg/dL Calcium 9.2 D (8.4-10.2) mg/dL COVID-19 (ARELIS) (Negative) COVID-19 [facility] Blood Type Antibody Screen Airway Mallampati Class: II TM Dist: >3cm Neck ROM: Full Denture: Upper (At home) Heart: RRR Lungs: CTAB Assessment and Plan Assessment Anesthesia Assessment: Anesthesia Plan Discussed and Chart Reviewed Final Anesthetic Review ASA Class: II Final Preanesthetic Review: No Changes in Pt Med Stat, Meds/Allgs Chart Reviewed, Consent Obtained/Reviewed and Anes Risks/Benef Reviewed Patient Risk: Intermediate Procedure Risk: Intermediate Assessment/Block/Sedation in SS: Assess/Block/Sedation-SS Anesthetic Plan Anesthetic Plan: GA Disposition: Standard PACU
[2020-06-06] VITALS (16 sets, daily range): BP systolic 105–133; BP diastolic 60–86; PULSE 59–93; RESP 14–20; TEMP 36.1–37.4; O2SAT 92–98
[2020-06-06] MEDS: Lactated Ringers 1,000 ML 100 ML IVCONT ×2 (09:41→20:28)
[2020-06-06 09:46] LABS: COVID-19 Test Negative (Negative); IDNOW Serial# 9DD0AD1C
[2020-06-06 10:19] LABS: Hematocrit 39.6 % (42-52); Hemoglobin 12.4 g/dl (14.0-18.0); Mean Corpuscular HGB Conc 31.3 g/dl (31.0-36.0); Mean Corpuscular Hemoglobin 24.8 pg (27.0-33.0); Mean Platelet Volume 10.2 fL (9.4-12.4); Platelet Count 196 X10*3/uL (160-400); Red Blood Count 5.01 X10*6/uL (4.60-5.80); Red Cell Distribution Width 16.9 % (11.0-16.0); White Blood Count 6.1 X10*3/uL (4.8-10.8)
--- NOTE | 2020-06-06 10:21 | MHC.SHP ---
Pre-Procedural Eval Section B Chief Complaint: s/p closure larparoscopic colostomy Allergies: Allergies Allergy/AdvReac Type Severity Reaction Status Date / Time No Known Allergies Allergy Verified 05/30/20 09:25 [No Known Allergies*] Plan I have reviewed the history and physical and performed a pertinent physical examination on my patient. No changes have occurred unless specified.
[2020-06-06 10:50] LABS: Anion Gap 14 (12-20); Blood Urea Nitrogen 9 mg/dL (9-16); Calcium 9.2 mg/dL (8.4-10.2); Carbon Dioxide 27 mmol/L (22-29); Chloride 103 mmol/L (96-108); Estimated Glomerular Filt Rate > 60; Glucose Fasting 99 mg/dL (60-99); Potassium 4.5 mmol/l (3.3-5.1); Sodium 139 mmol/L (135-145)
--- NOTE | 2020-06-06 16:19 | PM.OP ---
Brief Operative Note Date of Service: 06/06/20 <MAURICE Yu Last Filed: 06/06/20 16:36> Pre-op diagnosis: stricture of sigmoid, s/p sigmoid resection and diverting transverse colostomy <MAURICE Yu Last Filed: 06/06/20 16:36> Post-op diagnosis: same (frozen pelvis) <MAURICE Yu Last Filed: 06/06/20 16:36> Procedure: exploratory laparotomy, extensive lysis of adhesions, intraoperative flex sigmoidoscopy <MAURICE Yu Last Filed: 06/06/20 16:36> Surgeon: SIDDHARTHA KING MD <MAURICE Yu Last Filed: 06/06/20 16:36> Anesthesia: GETA and other (b/l TAP block) <MAURICE Yu Last Filed: 06/06/20 16:36> Steam Table Associate: Chio Kiran <MAURICE Yu Last Filed: 06/06/20 16:36> Estimated blood loss (mL): 200 <MAURICE Yu Last Filed: 06/06/20 16:36> IV fluids (mL): 1,900 <MAURICE Yu Last Filed: 06/06/20 16:36> Urine output (mL): 650 <MAURICE Yu Last Filed: 06/06/20 16:36> Pathology: none sent <MAURICE Yu Last Filed: 06/06/20 16:36> Condition: stable <MAURICE Yu Last Filed: 06/06/20 16:36> Disposition: PACU <MAURICE Yu Filed: 06/06/20 16:36>
--- NOTE | 2020-06-06 16:59 | P.EN_ITS ---
Event Note Date of Service: 06/06/20 Event Note: pt seen postop he underwent ex lap, extensive lysis of adhesions objective was to reanastomosis left colon to remaining rectosigmoid unfortunately, he had very extensive adhesions, very shortened colonic mesentery, with the rectosigmoid plastered and densely adherent to pelvic sidewall on left we therefore were unable to achieve planned anastomosis I had explained above to Cecilia, his transverse endloop colostomy remains in place pain mgt with RUG BACKING STENCILER, Ofirmev restart Apixaban tomorrow night
[2020-06-06] MEDS: fentaNYL citrate/PF 100 MCG/2 ML VIAL 25 MCG IVPUSH ×2 (17:50→18:02)
[2020-06-06] MEDS: Atorvastatin Calcium 40 MG TABLET PO (21:49)
[2020-06-06] MEDS: Metoprolol Tartrate 100 MG TABLET PO (21:49)
[2020-06-07] VITALS (10 sets, daily range): BP systolic 102–138; BP diastolic 57–90; PULSE 60–83; RESP 17–19; TEMP 36.1–37; O2SAT 90–98
--- NOTE | 2020-06-07 05:30 | OP_ITS ---
SURGEON: Александр Rainey MD INDICATIONS: The patient is a 55-year-old male, who had undergone urgent laparotomy, sigmoid resection, and transverse loop colostomy in last January 2020 because of marked distention of the colon due to diverticular stricture with complete obstruction. He actually tolerated the procedure well. I was unable to bring out an end colostomy at that time because of a very shortened mesentery with extensive edema and distention of the entire colon. There was note of a large spillage of stool as well at that time from the staple line on transection because of the very high intraluminal pressure from the obstruction with severe distention of the entire colon. I had been following him in the office and had done a colonoscopy, which showed a rectal pouch about 28 cm long. There was no obvious diverticulosis in the remaining rectosigmoid pouch. We therefore discussed with him the option of proceeding with resection of the remaining left colon to the rectosigmoid. Our plan was to do a hand-assisted procedure and he understood the possibility of converting to open procedure. He understood that he may not be able to reverse his stoma in the meantime because of the need for proximal diversion. He understood the risks, benefits, and alternatives, and had given consent. Discussions with the , Joy, who was also involved with the discussion. PREOPERATIVE DIAGNOSIS: History of transverse loop colostomy for diverticular stricture. POSTOPERATIVE DIAGNOSIS: PROCEDURE PERFORMED: ESTIMATED BLOOD LOSS: COMPLICATIONS: ANESTHESIA: ASSISTANTS: 1. Chio Kiran PA-C. 2. Justino Lomeli M.D. SPECIMENS: POSTOPERATIVE DIAGNOSES: History of transverse loop colostomy for diverticular stricture with extensive adhesions throughout the abdomen. PROCEDURES PERFORMED: Exploratory laparotomy, extensive lysis of adhesions, and mobilization of the splenic flexure. DESCRIPTION OF PROCEDURE: The patient was brought to the operating room and placed in modified lithotomy position under general anesthesia via endotracheal tube. The abdomen was prepped in usual sterile fashion. I had applied a temporary closure on the stoma with a running Prolene stitch to create a seal. A Olson catheter inserted. The perianal area was also prepped and draped. Surgical timeout had been done and the patient received Cefotan preoperatively. I made a short 6.5-cm incision on the skin in the infraumbilical margin at the midline using blade #10. It was carried down gently through the full-thickness skin and subcutaneous fat. There was note of significant fibrotic changes in the subcutaneous tissue. We had difficulty identifying the plane of the fascia. We eventually were able to see the fascia itself in the midline. I used electrocautery to do superficial dissection of the fascia. I again used the Metzenbaum scissors to divide across the rest of the fascia in a layer by layer fashion because of the risk of an enterotomy with any underlying adherent bowel loops. We proceeded to gently do this dissection carefully using the Metzenbaum scissors as well as the hemostats to make sure that we were safely dissecting through the multiple layers underneath the fascia. This part of the procedure actually took an extended period of time because of the very poor planes due to the fibrosis. Eventually, I was able to identify the peritoneum and was able to open this. I applied graspers on the edges of the fascia. I then applied Mellisa clamps on the edges of the fascia and we proceeded to directly visualize the underside while bowel loops away from this. We had to again extend the fascial incision in a millimeter by millimeter fashion as there was note of extensive adherent small bowel loops surrounding the area. We had to periodically separate bowel loops away from the fascia to allow us to extend this peritoneal and fascial incision. At this point, therefore, it was clear that in view of the very densely adherent small bowel and omentum surrounding the incision on both sides, we would be unable to apply the wound retractor and the GelPort and it would be impossible to proceed with laparoscopic procedure. I therefore continued to extend the incision superiorly past the umbilicus. In this area on the upper abdomen, there was note of what appeared to be clear planes, although there was omentum that we had to dissect off the underside of the fascia. Again, at this juncture, there was note of densely adherent omentum and small bowel on both sides. We had to carefully lyse these adhesions using the Metzenbaum scissors. We had to alternate from one side to the other until we were able to free up at least the margins of the fascia. We proceeded to continue with the dissection, mostly towards the left side and bowel loops from the fascia. There was noted a lot of interloop dense adhesions as well, which had to be lysed along the way to allow mobilization. We proceeded as well on the pelvis as well as on the right side of the fascia. Again, in view of the amount and extent and the density of the adhesions, it took us about more than an hour to expose the entire abdomen. Eventually, we were able to visualize the small bowel loops and identify the cecum. By identifying the small bowel loops, we safely proceeded to continue to separate the bowel loops from the pelvis and the left side of the retroperitoneum with gentle dissection with electrocautery as well as with the LigaSure. By doing so, we were able to apply the Bookwalter retractors. We were able to then go all the way down to the pelvis. There was note of very thickened peritoneum in the lower pelvis and we could not identify the distal rectosigmoid stump at all. I therefore had to do an intraoperative flexible sigmoidoscopy. By doing so, we were able to advance the scope all the way close to about 30 cm. We were able to see the elimination of the stump eventually and this was very densely adherent to the right side of the pelvis. Other than the most distal part of the stump, the rest of the proximal rectosigmoid was densely adherent as well and we attempted to mobilize this in millimeter by millimeter fashion using blunt dissection with the right angle clamp and electrocautery, but the planes were very difficult to identify similar to what is normally seen in the frozen pelvis. We switched our attention to the proximal stump at the left colon. We had difficulty identifying this as well as there were lot of dense adhesions on the left side of the retroperitoneum to the small bowel loops. Extensive lysis of adhesions of these small bowel loops allow us to visualize the entire left side of the retroperitoneum. We still were unable to identify the proximal stump, so I had to open the lesser sac by dividing the omentum off the greater curvature using electrocautery. We entered the lesser sac and proceeded to explore this area. We were able to eventually see the distal transverse colon. We followed this more distally and this seemed to hang very high up the left upper quadrant. Therefore, I had to divide the rest of the omentum off the greater curvature as well to allow me to follow the transverse colon distally and able to continue to dissect off the splenic flexure. With tractioning in the distal transverse inferiorly, I was able to lyse and divide splenocolic adhesions to mobilize the splenic flexure. We were able to bring down the splenic flexure off the spleen, but the attached mesentery was also very foreshortened. We attempted to mobilize more of the transverse colon and divide it from the rest of the attached omentum. We were able to separate this totally from the stomach inside the lesser sac. We had good mobilization of the splenic flexure, but the mesentery of the transverse colon was again very foreshortened and despite mobilization from the splenic flexure, we were unable to bring this down any further than the upper abdomen. At this point, we had been doing all these dissections for more than 2.5 hours. It was very clear that the left colon would not be able to reach down towards the lower abdomen despite mobilization of the splenic flexure in view of the significant foreshortening of the mesentery. Furthermore, the rest of the rectosigmoid was very adherent to the pelvis and we felt that it was unsafe to proceed with further dissection of the rectosigmoid in view of this very dense adhesions and in view of the risk of injury to the colon as well as the retroperitoneum. I had asked the opinion of Dr. Lomeli and he had him come in and assisted as well on the case. He had the same input about the difficulty with mobilization of both the proximal and distal stumps. At this time, he had became obvious that for me to be able to achieve anastomosis, we may have to resect more of the distal colon and probably until this would reach the lower abdomen and this may even require a colectomy and being the ileum for our anastomosis. It had been necessary to resect the entire colon and use the small bowel for anastomosis. The other problem would be to mobilize more of the proximal rectosigmoid to allow a good anastomosis. In view of the degree of difficulty of mobilizing more of the colon as well as the long rectal stump, I felt that there would be a high chance of causing enterotomies, and I would be sacrificing patient's safety at this point. I therefore felt that we may have to send the patient for an opinion in a tertiary care center with regard to re-anastomosis. I therefore, copiously irrigated the entire abdominal cavity. We examined all the small bowel loops from the ileocecal valve all the way to proximally. There was no evidence of any bowel injuries or enterotomies. We did see multiple granulomatous changes in the mesentery and the omentum as well as at the right retroperitoneum that were suggestive of small abscesses and interloop abscesses. After copious irrigation, we observed for hemostasis. Once hemostasis was ensured, proceeded to then close the fascia with a running Maxon 1 stitch. I released the sutures from the stomal opening to keep this patent again. I examined both efferent and afferent limbs, and these were both patent on examination with the finger. Skin closure was achieved with skin josephine. Dressings were applied. The stoma appliance was placed. The procedure was completed. A TAP block was done postoperatively in the OR under anesthesia by the anesthesiologist as well. The patient otherwise tolerated the procedure well. There were no complications noted. Initial and final counts of sponge and instruments were correct. Estimated blood loss was about 100 cc. The patient is to be extubated here in the operating room and will be transferred to recovery room. MD CAMILLE Baptiste/CLIFTON / [id number] MTDD
[2020-06-07] MEDS: Lactated Ringers 1,000 ML 100 ML IVCONT ×2 (05:58→14:41)
[2020-06-07 07:10] LABS: Anion Gap 14 (12-20); Blood Urea Nitrogen 12 mg/dL (9-16); Carbon Dioxide 27 mmol/L (22-29); Chloride 99 mmol/L (96-108); Creatinine Clr Calc Pharmacy 113.8; Estimated Glomerular Filt Rate > 60; Glucose Fasting 107 mg/dL (60-99); Potassium 4.1 mmol/l (3.3-5.1); Sodium 136 mmol/L (135-145)
[2020-06-07 07:39] LABS: Calcium 8.3 mg/dL (8.4-10.2)
[2020-06-07] MEDS: Omeprazole 20 MG CAPSULE.DR PO (08:35)
[2020-06-07] MEDS: Metoprolol Tartrate 100 MG TABLET PO ×2 (08:36→20:48)
--- NOTE | 2020-06-07 08:44 | HO.POSTANES ---
Post Anesthesia Evaluation Post Anesthesia Evaluation Vital Signs: Vital Signs Temp Pulse Resp BP Pulse Ox 06/07/20 07:51 97.6 F 70 17 120/70 98 06/07/20 06:04 77 18 109/70 97 06/07/20 04:00 97.9 F 78 18 120/69 96 06/07/20 03:57 78 18 120/69 96 06/07/20 03:10 97.9 F 74 18 112/78 96 06/06/20 23:35 99.4 F 77 18 123/78 92 06/06/20 21:49 78 123/74 Anesthesia: General Endotracheal-GETA Mental Status: Awake Pain Control: Satisfactory Nausea/Vomiting: None Hydration: Adequate Anesthesia-Related Issues: No Anes. Related Issues
--- NOTE | 2020-06-07 09:27 | MHC.CM.PN ---
dc plan home no servcies pt has own transportaion home
--- NOTE | 2020-06-07 10:05 | P.PNGS_ITS ---
Subjective Subjective Date of Service: 06/07/20 Interval history: Pain seems adequately controlled with ACCOUNTS RECEIVABLE ADMINISTRATOR Denies flatus via stoma Says he has walked down the hallway earlier Physical Exam Vital Signs: Vital Signs: Last Vital Signs Temp 97.6 F 06/07/20 07:51 Pulse 70 06/07/20 07:51 Resp 17 06/07/20 07:51 BP 120/70 06/07/20 07:51 Pulse Ox 98 06/07/20 07:51 Body Mass Index 33.4 Chemistry 06/06/20 06/07/20 10:07 05:59 Sodium 139 136 Potassium 4.5 D 4.1 Carbon Dioxide BUN 9 12 Creatinine 0.73 0.77 Calcium 9.2 D 8.3 L D Hematology 06/06/20 10:07 WBC 6.1 Hgb 12.4 L D Plt Count 196 D Const: Other: Sitting up on recliner General: comfortable and no acute distress Resp: Effort & Inspection: normal respiratory effort Cardio: Rate: regular rate GI: Other: Dressings dry, stoma without output yet Palpation (GI): Soft to palpation and no guarding Progress Note: A&P Assessment and plan (1) Colostomy in place: Status: Acute Assessment and Plan: Status post ex lap, extensive lysis of adhesions for attempt at reanastomosis Unfortunately, he had extensive adhesion involving small bowel and had dense adhesions at the rectal pouch Mesentery of the transverse colon was very foreshortened I was therefore unable to complete the anastomosis I explained the above to him -he states that his had told him last night Plan to DC Olson catheter Out of bed and ambulate Pain management with ACCOUNTS RECEIVABLE ADMINISTRATOR Anticipate some ileus in view of extensive lysis of adhesions Cecilia came to visit him this morning and we had discussion together Fall Risk Details Current Medications: Current Medications Generic Name Dose Route Start Last Admin Trade Name Freq PRN Reason Stop Dose Admin Albuterol Sulfate 2 puff 06/06/20 20:18 Albuterol Sulfate 90 Mcg 8 Gm Inhaler INHALE Q4H PRN Shortness Of Breath Atorvastatin Calcium 40 mg 06/06/20 21:00 06/06/20 21:49 Atorvastatin Calcium 40 Mg Tablet PO 40 mg BEDTIME SHARI Administration Lactated Ringer's 1,000 mls @ 100 mls/hr 06/06/20 09:45 06/07/20 05:58 Lr IVCONT 100 mls/hr .Q10H SHARI Administration Acetaminophen 1,000 mg in 100 mls @ 400 mls/hr 06/06/20 22:00 06/07/20 03:56 Ofirmev IV Infused Q6H PRN Infusion Pain, Severe (Pain Scale 7-10) Morphine Sulfate 100 mg in 100 mls @ 0 mls/hr 06/06/20 20:18 06/07/20 03:09 IVCONT 1 mls/hr .Q0M SHARI Administration Protocol Per Protocol Lisinopril 20 mg 06/07/20 09:00 06/07/20 08:35 Lisinopril 20 Mg Tablet PO 20 mg DAILY SHARI Administration Protocol Lorazepam 0.5 mg 06/06/20 20:18 Lorazepam 0.5 Mg Tablet PO DAILY PRN Anxiety Metoprolol Tartrate 100 mg 06/06/20 21:00 06/07/20 08:36 Metoprolol Tartrate 100 Mg Tablet PO 100 mg BID SHARI Administration Protocol Omeprazole 20 mg 06/07/20 09:00 06/07/20 08:35 Omeprazole 20 Mg Capsule.Dr PO 20 mg DAILY SHARI Administration Ondansetron HCl 4 mg 06/06/20 20:18 Ondansetron Hcl 4 Mg/2 Ml Vial IVPUSH Q8H PRN Nausea Sodium Chloride 3 ml 06/07/20 00:00 06/07/20 08:36 0.9 % Sodium Chloride Flush 3 Ml Syringe IVFLUSH Not Given QSHIFT SHARI Time Spent With Patient Time: Total time spent is greater than 50% in coordination of care (as documented) at patient's floor/unit and/or counseling patient: Time with patient: 25 - 35 minutes
[2020-06-07] MEDS: Apixaban 5 MG TABLET PO (20:48)
[2020-06-07] MEDS: Atorvastatin Calcium 40 MG TABLET PO (20:48)
[2020-06-08] VITALS (9 sets, daily range): BP systolic 97–141; BP diastolic 57–82; PULSE 64–103; RESP 14–20; TEMP 36.3–37.1; O2SAT 92–98; BMI 33.4
[2020-06-08] MEDS: Lactated Ringers 1,000 ML 100 ML IVCONT (00:24)
[2020-06-08 06:27] LABS: MANUAL DIFF FLAG NO
[2020-06-08 06:41] LABS: Basophils Percent Auto 0.4 % (0-2); Eosinophils Absolute Auto 0.1 X10*3/uL (0.0-0.4); Eosinophils Percent Auto 1.8 % (0-4); Hematocrit 31.6 % (42-52); Imm Gran Abs Auto 0.05 X10*3/uL (0.00-0.03); Imm Gran Pct Auto 0.7 % (0.0-0.4); Lymphocytes Absolute Auto 1.4 X10*3/uL (1.2-4.9); Lymphocytes Percent Auto 20.4 % (20-40); Mean Corpuscular Hemoglobin 24.7 pg (27.0-33.0); Mean Corpuscular Volume 79.8 fL (80-98); Mean Platelet Volume 11.4 fL (9.4-12.4); Monocytes Absolute Auto 0.9 X10*3/uL (0.1-1.2); Neutrophils Absolute Auto 4.5 X10*3/uL (2.0-8.3); Neutrophils Percent Auto 63.7 % (45-73); Platelet Count 184 X10*3/uL (160-400); Red Blood Count 3.96 X10*6/uL (4.60-5.80); Red Cell Distribution Width 17.2 % (11.0-16.0); White Blood Count 7.1 X10*3/uL (4.8-10.8)
[2020-06-08 07:33] LABS: Hemoglobin 9.8 g/dl (14.0-18.0)
--- NOTE | 2020-06-08 08:16 | P.PNGS_ITS ---
Subjective Subjective Date of Service: 06/08/20 <Chio Kiran PA-C - Last Filed: 06/08/20 08:23> 06/08/20 <Александр Rainey MD - Last Filed: 06/08/20 08:52> Interval history: Feels better today. Pain well controlled with ROADWAY ENGINEER, only using once every half hour. Tolerating clear liquids without any nausea. Passing flatus from ostomy, no stool. OOB and ambulated halls yesterday. Feels hungry. <Chio Kiran PA-C - Last Filed: 06/08/20 08:23> Physical Exam Vital Signs: Vital Signs: Last Vital Signs Temp 97.3 F 06/08/20 03:07 Pulse 65 06/08/20 03:07 Resp 18 06/08/20 03:07 BP 97/57 L 06/08/20 03:07 Pulse Ox 95 06/08/20 03:07 Body Mass Index 33.4 <Chio Kiran PA-C - Last Filed: 06/08/20 08:23> Const: General: healthy appearing, comfortable, no acute distress and alert <Chio Kiran PA-C - Last Filed: 06/08/20 08:23> Orientation/consciousness: patient oriented x3 <MAURICE Yu Last Filed: 06/08/20 08:23> Eyes: Sclerae: sclerae normal <Chio Kiran PA-C - Last Filed: 06/08/20 08:23> Resp: Effort & Inspection: normal respiratory effort <MAURICE Yu Last Filed: 06/08/20 08:23> Cardio: Rate: regular rate <MAURICE Yu Last Filed: 06/08/20 08:23> GI: Other: stoma pink <MAURICE Yu Last Filed: 06/08/20 08:23> Inspection: No distended and Yes incision (clean) <MAURICE Yu Last Filed: 06/08/20 08:23> Palpation (GI): Soft to palpation, Tenderness to palpation present (GI) (mild incisional), no guarding, not rigid and No Rebound tenderness present <Chio Kiran PA-C - Last Filed: 06/08/20 08:23> Skin: General skin exam: no rashes or lesions noted <Chio Kiran PA-C - Last Filed: 06/08/20 08:23> Neuro: General: patient oriented x3 <MAURICE Yu Last Filed: 06/08/20 08:23> Extrem: General: Yes no clubbing, cyanosis or edema <Chio Kiran PA-C - Last Filed: 06/08/20 08:23> Progress Note: A&P Assessment and plan (1) S/P exploratory laparotomy: Problem details: s/p ex lap, extensive lysis of adhesions for attempt at reanastomosis. 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 <Chio Kiran PA-C - Last Filed: 06/08/20 08:23> Status: Acute <Chio Kiran PA-C - Last Filed: 06/08/20 08:23> Assessment and Plan: He is doing well post op, pain well controlled. Tolerating clear liquids. VSS. Abd exam benign with appropriate post op tenderness, incision clean, stoma pink. Will advance to solid diet. D/c ROADWAY ENGINEER, transition to PRN analgesics. Encouraged OOB/ambulation, IS use. Await return of GI fxn. <Chio Kiran PA-C - Last Filed: 06/08/20 08:23> (2) Colostomy in place: Status: Acute <MAURICE Yu Last Filed: 06/08/20 08:23> Assessment and Plan: Status post laparotomy, extensive lysis of adhesions and attempt at reanastomosis of colon Stoma with flatus Patient has been ambulating with good pain control Abdomen soft Voiding freely Diet as tolerated Pain management Patient seen and examined -agree with YASMIN Kiran <Александр Rainey MD - Last Filed: 06/08/20 08:52> (3) PAF (paroxysmal atrial fibrillation): Problem details: Controlled. OAC resumed yesterday. Repeat CBC tomorrow. <Chio Kiran PA-C - Last Filed: 06/08/20 08:23> Status: Acute <Chio Kiran PA-C - Last Filed: 06/08/20 08:23> Fall Risk Details Current Medications: Current Medications Generic Name Dose Route Start Last Admin Trade Name Freq PRN Reason Stop Dose Admin Albuterol Sulfate 2 puff 06/06/20 20:18 Albuterol Sulfate 90 Mcg 8 Gm Inhaler INHALE Q4H PRN Shortness Of Breath Apixaban 5 mg 06/07/20 21:00 06/07/20 20:48 Apixaban 5 Mg Tablet PO 5 mg BID SHARI Administration Atorvastatin Calcium 40 mg 06/06/20 21:00 06/07/20 20:48 Atorvastatin Calcium 40 Mg Tablet PO 40 mg BEDTIME SHARI Administration Acetaminophen 1,000 mg in 100 mls @ 400 mls/hr 06/06/20 22:00 06/07/20 03:56 Ofirmev IV Infused Q6H PRN Infusion Pain, Severe (Pain Scale 7-10) Lisinopril 20 mg 06/07/20 09:00 06/07/20 08:35 Lisinopril 20 Mg Tablet PO 20 mg DAILY SHARI Administration Protocol Lorazepam 0.5 mg 06/06/20 20:18 Lorazepam 0.5 Mg Tablet PO DAILY PRN Anxiety Metoprolol Tartrate 100 mg 06/06/20 21:00 06/07/20 20:48 Metoprolol Tartrate 100 Mg Tablet PO 100 mg BID SHARI Administration Protocol Morphine Sulfate 4 mg 06/08/20 07:45 Morphine Sulfate 4 Mg/Ml Cartridge IVPUSH Q4H PRN Pain, Severe (Pain Scale 7-10) Omeprazole 20 mg 06/07/20 09:00 06/07/20 08:35 Omeprazole 20 Mg Capsule.Dr PO 20 mg DAILY SHARI Administration Ondansetron HCl 4 mg 06/06/20 20:18 Ondansetron Hcl 4 Mg/2 Ml Vial IVPUSH Q8H PRN Nausea Oxycodone HCl 5 mg 06/08/20 07:45 Oxycodone Hcl Immed Release 5 Mg Tablet PO Q4H PRN Pain, Moderate (Pain Scale 4-6 Oxycodone HCl 10 mg 06/08/20 07:45 Oxycodone Hcl Immed Release 5 Mg Tablet PO Q4H PRN Pain, Severe (Pain Scale 7-10) Simethicone 160 mg 06/07/20 14:49 Simethicone 80 Mg Tab.Chew PO Q4H PRN gas Sodium Chloride 3 ml 06/07/20 00:00 06/08/20 00:24 0.9 % Sodium Chloride Flush 3 Ml Syringe IVFLUSH Not Given QSHIFT SHARI <Chio Kiran PA-C - Last Filed: 06/08/20 08:23> Time Spent With Patient Time: Total time spent is greater than 50% in coordination of care (as documented) at patient's floor/unit and/or counseling patient: <Chio Kiran PA-C - Last Filed: 06/08/20 08:23> Time with patient: 15 - 24 minutes <Chio Kiran PA-C - Last Filed: 06/08/20 08:23>
[2020-06-08] MEDS: 0.9 % Sodium Chloride Flush 3 ML SYRINGE IVFLUSH ×2 (08:23→16:44)
[2020-06-08] MEDS: Omeprazole 20 MG CAPSULE.DR PO (08:23)
[2020-06-08] MEDS: Apixaban 5 MG TABLET PO ×2 (08:23→20:33)
[2020-06-08] MEDS: Metoprolol Tartrate 100 MG TABLET PO ×2 (08:23→20:33)
[2020-06-08] MEDS: oxyCODONE HCl Immed Release 5 MG TABLET PO (12:15)
--- NOTE | 2020-06-08 15:05 | MHC.CM.PN ---
nurse customer care agent note electronic medical record reviewed along with case discussed with staff nurse , now s/p exploratory extensive lysis of adhesion attempt for reanastomosis patient is on clear liquid diet tolerating this well they were unable to provide closure of colostomy . patient reports pain at incisinal site, plan is to discontinue the financial operations analyst and transition to prn analgesics await return of gi, function discharge chamorro initially home with no services customer care agent to continue to follow for any changes in discharge needs
[2020-06-08] MEDS: Atorvastatin Calcium 40 MG TABLET PO (20:33)
[2020-06-09] MEDS: 0.9 % Sodium Chloride Flush 3 ML SYRINGE IVFLUSH ×2 (02:02→09:14)
[2020-06-09 03:52] VITALS: BP 138/69; PULSE 70; RESP 20; TEMP 36.8; O2SAT 98
[2020-06-09 06:55] LABS: Hematocrit 34.7 % (42-52); Hemoglobin 10.8 g/dl (14.0-18.0); Mean Corpuscular HGB Conc 31.1 g/dl (31.0-36.0); Mean Corpuscular Hemoglobin 24.8 pg (27.0-33.0); Mean Corpuscular Volume 79.6 fL (80-98); Mean Platelet Volume 11.2 fL (9.4-12.4); Platelet Count 241 X10*3/uL (160-400); Red Blood Count 4.36 X10*6/uL (4.60-5.80); Red Cell Distribution Width 16.9 % (11.0-16.0); White Blood Count 7.7 X10*3/uL (4.8-10.8)
[2020-06-09 08:00] VITALS: BP 143/88; PULSE 95; RESP 18; TEMP 36; O2SAT 97
--- NOTE | 2020-06-09 08:30 | PM.PNGS ---
Subjective Subjective Date of Service: 06/09/20 <Chio Kiran PA-C - Last Filed: 06/09/20 08:34> 06/09/20 <Александр Rainey MD - Last Filed: 06/09/20 09:12> Interval history: Feels well. Not requiring analgesics for pain. Tolerating solid diet. Ostomy with flatus and stool output. OOB and ambulating. <Chio Kiran PA-C - Last Filed: 06/09/20 08:34> Physical Exam Vital Signs: Vital Signs: Last Vital Signs Temp 98.2 F 06/09/20 03:52 Pulse 70 06/09/20 03:52 Resp 20 06/09/20 03:52 BP 138/69 06/09/20 03:52 Pulse Ox 98 06/09/20 03:52 Body Mass Index 33.4 <MAURICE Yu Last Filed: 06/09/20 08:34> Const: General: comfortable, no acute distress and alert <Chio Kiran PA-C - Last Filed: 06/09/20 08:34> Orientation/consciousness: patient oriented x3 <Chio Kiran PA-C - Last Filed: 06/09/20 08:34> Eyes: Sclerae: sclerae normal <MAURICE Yu Last Filed: 06/09/20 08:34> Resp: Effort & Inspection: normal respiratory effort <Chio Kiran PA-C - Last Filed: 06/09/20 08:34> GI: Other: stoma pink, small amount of stool in bag <Chio Kiran PA-C - Last Filed: 06/09/20 08:34> Inspection: No distended and Yes incision (clean) <MAURICE Yu Last Filed: 06/09/20 08:34> Palpation (GI): Soft to palpation, Tenderness to palpation present (GI) (mild incisional), no guarding and not rigid <MAURICE Yu Last Filed: 06/09/20 08:34> Skin: General skin exam: no rashes or lesions noted <MAURICE Yu Last Filed: 06/09/20 08:34> Neuro: General: patient oriented x3 <Chio Kiran PA-C - Last Filed: 06/09/20 08:34> Extrem: General: Yes no clubbing, cyanosis or edema <Chio Kiran PA-C - Last Filed: 06/09/20 08:34> Progress Note: A&P Assessment and plan (1) S/P exploratory laparotomy: Problem details: s/p ex lap, extensive lysis of adhesions for attempt at reanastomosis. 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 <Chio Kiran PA-C - Last Filed: 06/09/20 08:34> Status: Acute <MAURICE Yu Last Filed: 06/09/20 08:34> Assessment and Plan: Doing well post op, pain well controlled. Tolerating solid diet. VSS. Abd exam benign with appropriate post op tenderness and ostomy functioning. Incision clean. He feels ready for discharge to home. Stable for d/c to home today. Feels he does not need VNA services. F/u in office with Dr. Rainey. <Chio Kiran PA-C - Last Filed: 06/09/20 08:34> good pain control Tolerating diet Stoma functioning He wants to go home Appears comfortable No lifting, pain management at home with p.o. 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 OAC resumed 06/07/20. H/H stable. <Chio Kiran PA-C - Last Filed: 06/09/20 08:34> Status: Acute <Chio Kiran PA-C - Last Filed: 06/09/20 08:34> Fall Risk Details Current Medications: Current Medications Generic Name Dose Route Start Last Admin Trade Name Freq PRN Reason Stop Dose Admin Albuterol Sulfate 2 puff 06/06/20 20:18 Albuterol Sulfate 90 Mcg 8 Gm Inhaler INHALE Q4H PRN Shortness Of Breath Apixaban 5 mg 06/07/20 21:00 06/08/20 20:33 Apixaban 5 Mg Tablet PO 5 mg BID SHARI Administration Atorvastatin Calcium 40 mg 06/06/20 21:00 06/08/20 20:33 Atorvastatin Calcium 40 Mg Tablet PO 40 mg BEDTIME SAHRI Administration Acetaminophen 1,000 mg in 100 mls @ 400 mls/hr 06/06/20 22:00 06/07/20 03:56 Ofirmev IV Infused Q6H PRN Infusion Pain, Severe (Pain Scale 7-10) Lisinopril 20 mg 06/07/20 09:00 06/08/20 08:23 Lisinopril 20 Mg Tablet PO 20 mg DAILY SHARI Administration Protocol Lorazepam 0.5 mg 06/06/20 20:18 Lorazepam 0.5 Mg Tablet PO DAILY PRN Anxiety Metoprolol Tartrate 100 mg 06/06/20 21:00 06/08/20 20:33 Metoprolol Tartrate 100 Mg Tablet PO 100 mg BID SHARI Administration Protocol Morphine Sulfate 4 mg 06/08/20 07:45 Morphine Sulfate 4 Mg/Ml Cartridge IVPUSH Q4H PRN Pain, Severe (Pain Scale 7-10) Omeprazole 20 mg 06/07/20 09:00 06/08/20 08:23 Omeprazole 20 Mg Capsule.Dr PO 20 mg DAILY SHARI Administration Ondansetron HCl 4 mg 06/06/20 20:18 Ondansetron Hcl 4 Mg/2 Ml Vial IVPUSH Q8H PRN Nausea Oxycodone HCl 5 mg 06/08/20 07:45 06/08/20 12:15 Oxycodone Hcl Immed Release 5 Mg Tablet PO 5 mg Q4H PRN Administration Pain, Moderate (Pain Scale 4-6 Oxycodone HCl 10 mg 06/08/20 07:45 Oxycodone Hcl Immed Release 5 Mg Tablet PO Q4H PRN Pain, Severe (Pain Scale 7-10) Simethicone 160 mg 06/07/20 14:49 Simethicone 80 Mg Tab.Chew PO Q4H PRN gas Sodium Chloride 3 ml 06/07/20 00:00 06/09/20 02:02 0.9 % Sodium Chloride Flush 3 Ml Syringe IVFLUSH 3 ml QSHIFT SHARI Administration <Chio Kiran PA-C - Last Filed: 06/09/20 08:34> Time Spent With Patient Time: Total time spent is greater than 50% in coordination of care (as documented) at patient's floor/unit and/or counseling patient: <Chio Kiran PA-C - Last Filed: 06/09/20 08:34> Time with patient: 15 - 24 minutes <Chio Kiran PA-C - Last Filed: 06/09/20 08:34>
--- NOTE | 2020-06-09 08:57 | MHC.CM.PN ---
NURSE JOINERY FACTORY WORKER NOTE ELECTRONIC MEDICAL RECORD REVIEWED ALONG WITH CASE DISCUSSED WITH [facility] PATIENT TO BE DISCHArged home today discharge plan home no services pcp patient to follow up with pcp post hospital discharge follow up surgical follow up per discharge instructions transportation family
[2020-06-09 09:13] VITALS: BP 143/88; PULSE 95
[2020-06-09] MEDS: Omeprazole 20 MG CAPSULE.DR PO (09:13)
[2020-06-09] MEDS: Metoprolol Tartrate 100 MG TABLET PO (09:13)
[2020-06-09] MEDS: Apixaban 5 MG TABLET PO (09:13)
--- NOTE | 2020-06-09 09:50 | PM.DS ---
DS: Providers Provider Date of Service: 06/09/20 Date of admission: 06/06/20 06:03 Primary care physician: Александр Chung MD DS: Diagnosis Discharge Diagnosis (1) S/P exploratory laparotomy: Status: Acute Problem details: s/p ex lap, extensive lysis of adhesions for attempt at reanastomosis. 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 (2) PAF (paroxysmal atrial fibrillation): Status: Acute Problem details: Controlled. OAC resumed 06/07/20. H/H stable. (3) Diverticular disease of colon: Status: Acute Problem details: sigmoid resection with diverting transverse colostomy 01/2020 (4) Colostomy in place: Status: Acute DS: Medications Discharge Medications Home Medications: Home Medications Medication Instructions Recorded Confirmed albuterol sulfate [Ventolin HFA] 2 puff INHALATION Q4H PRN 02/09/20 05/30/20 atorvastatin [Lipitor] 40 mg PO BEDTIME 02/09/20 05/30/20 lisinopril [Zestril] 20 mg PO DAILY 02/09/20 05/30/20 lorazepam [Ativan] 0.5 mg PO DAILY PRN 02/09/20 05/30/20 omeprazole 40 mg PO DAILY 06/06/20 06/06/20 Previous Rx's Medication Instructions Recorded metoprolol tartrate [Lopressor] 100 mg PO BID #90 tab 02/15/20 ostomy adhesive #15 ea 03/07/20 ring (ostomy supply) 2 #20 ea 03/21/20 apixaban 5 mg tablet 5 mg PO BID 90 Days #180 tab 03/28/20 acetaminophen [Tylenol Extra 1,000 mg PO Q8H PRN #30 tab 06/09/20 Strength] oxycodone 5 mg PO Q4H PRN #30 tab 06/09/20 DS: Summary Hospital Course Hospital Course: BRIEF HPI: The patient is a 55-year-old male, who had undergone urgent laparotomy, sigmoid resection, and transverse loop colostomy in last January 2020 because of marked distention of the colon due to diverticular stricture with complete obstruction. He had been doing well post operatively and had a colonoscopy, which showed a rectal pouch about 28 cm long without obvious diverticulosis in the remaining rectosigmoid pouch. The patient wanted to proceed with reanastomosis of the remaining left colon to the rectosigmoid. Technique of the procedure, risks and benefits were discussed with the patient. He now presents for the planned procedure. HOSPITAL COURSE: On 06/06/20, exploratory laparotomy, extensive lysis of adhesions, mobilization of the splenic flexure and intraoperative flexible sigmoidoscopy was performed by Dr. Александр Rainey. 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 The mesentery of the transverse colon was very foreshortened and therefore unable to complete the anastomosis. The patient tolerated the procedure well and was admitted for observation post operatively. The procedure and results were discussed with the patient and his in detail. The patient had an uncomplicated recovery course. On POD #1, he was comfortable with the morphine CLINICAL BIOCHEMICAL GENETICIST. He was tolerating clear liquids without any nausea but had not passed flatus or stool via his ostomy yet. His diaz was removed. He was ambulated. On POD #2, his pain control remained adequate and the CLINICAL BIOCHEMICAL GENETICIST was discontinued and he was transitioned to PRN analgesics. He began to pass flatus from his colostomy. He was advanced to a solid diet and IVF were discontinued. On POD#3, the patient felt comfortable and was tolerating a solid diet without N/V. He continued to pass flatus and began to pass stool from his colostomy. His abdomen remained benign with clean incision and colostomy viable appearing and functioning. He felt ready for discharge. He was discharged to home on 06/09/20 in stable condition. He is to follow up with Dr. Rainey in office. Status at Discharge Functional status at discharge: independent ambulation Overall status at discharge: patient is progressing back to baseline Time Spent with Patient Time attestation: Total time spent providing and/or coordinating discharge services: Discharge coordination time: Less than 30 minutes Physical Exam Vital Signs: Vital Signs: Last Vital Signs Temp 96.8 F 06/09/20 08:00 Pulse 95 06/09/20 09:13 Resp 18 06/09/20 08:00 BP 143/88 H 06/09/20 09:13 Pulse Ox 97 06/09/20 08:00 Body Mass Index 33.4 Const: General: comfortable, no acute distress, well developed and alert Orientation/consciousness: patient oriented x3 Eyes: Sclerae: sclerae normal Resp: Effort & Inspection: normal respiratory effort Cardio: Rate: regular rate GI: Inspection: No distended, Yes incision (clean) and Yes other (colostomy pink, gas and stool in appliance) Palpation (GI): Soft to palpation, Tenderness to palpation present (GI) (mild, incisional), no guarding and not rigid Skin: General skin exam: no rashes or lesions noted Neuro: General: patient oriented x3 Extrem: General: Yes no clubbing, cyanosis or edema DS: Data Data Completed and Pending Completed studies during hospitalization [Text1]: Procedures Bypass Sigmoid Colon to Cutaneous, Open Approach (02/02/20) Excision of Sigmoid Colon, Open Approach (02/02/20) Insertion of Infusion Device into Superior Vena Cava, Percutaneous Approach (02/02/20) Release Sigmoid Colon, Open Approach (02/02/20) Ultrasonography of Superior Vena Cava, Guidance (02/02/20) Labs on day of discharge: Laboratory Tests 06/06/20 06/06/20 06/06/20 08:55 09:20 10:07 WBC 6.1 RBC 5.01 D Hgb 12.4 L D Hct 39.6 L D MCV 79.0 L MCH 24.8 L MCHC 31.3 RDW 16.9 H Plt Count 196 D MPV 10.2 Immature Gran % (Auto) Neut % (Auto) Lymph % (Auto) Meriwether % (Auto) Eos % (Auto) Baso % (Auto) Lymph # (Auto) Meriwether # (Auto) Eos # (Auto) Baso # (Auto) Abs Immat Gran (auto) Absolute Neuts (auto) Absolute Nucleated RBC 0.000 Nucleated RBC % (auto) 0.0 Sodium Potassium Chloride Carbon Dioxide Anion Gap BUN Creatinine Estim Creat Clear Calc Estimated GFR Fasting Glucose Calcium COVID-19 (ARELIS) Negative COVID-19 Clin Com See Note Blood Type O Positive Antibody Screen NEGATIVE 06/06/20 06/07/20 06/08/20 10:07 05:59 05:49 WBC 7.1 RBC 3.96 L D Hgb 9.8 L D Hct 31.6 L D MCV 79.8 L MCH 24.7 L MCHC 31.0 RDW 17.2 H Plt Count 184 MPV 11.4 Immature Gran % (Auto) 0.7 H Neut % (Auto) 63.7 Lymph % (Auto) 20.4 Meriwether % (Auto) 13.0 H Eos % (Auto) 1.8 Baso % (Auto) 0.4 Lymph # (Auto) 1.4 Meriwether # (Auto) 0.9 Eos # (Auto) 0.1 Baso # (Auto) 0.0 Abs Immat Gran (auto) 0.05 H Absolute Neuts (auto) 4.5 Absolute Nucleated RBC 0.000 Nucleated RBC % (auto) 0.0 Sodium 139 136 Potassium 4.5 D 4.1 Chloride 103 99 Carbon Dioxide 27 27 Anion Gap 14 14 BUN 9 12 Creatinine 0.73 0.77 Estim Creat Clear Calc 120.0 113.8 Estimated GFR > 60 > 60 Fasting Glucose 99 107 H Calcium 9.2 D 8.3 L D COVID-19 (ARELIS) COVID-[employer] Blood Type Antibody Screen 06/09/20 05:55 WBC 7.7 RBC 4.36 L Hgb 10.8 L Hct 34.7 L MCV 79.6 L MCH 24.8 L MCHC 31.1 RDW 16.9 H Plt Count 241 D MPV 11.2 Immature Gran % (Auto) Neut % (Auto) Lymph % (Auto) Meriwether % (Auto) Eos % (Auto) Baso % (Auto) Lymph # (Auto) Meriwether # (Auto) Eos # (Auto) Baso # (Auto) Abs Immat Gran (auto) Absolute Neuts (auto) Absolute Nucleated RBC 0.000 Nucleated RBC % (auto) 0.0 Sodium Potassium Chloride Carbon Dioxide Anion Gap BUN Creatinine Estim Creat Clear Calc Estimated GFR Fasting Glucose Calcium COVID-19 (ARELIS) COVID-19 [employer] Blood Type Antibody Screen Discharge Plan Discharge Patient Disposition: Home, Self-Care Referrals: Александр Chung MD [Primary Care Provider] - 1 Week (Please call and schedule a follow up appointment within 1 week.) Александр Rainey MD [Physician] - 07/19/20 Discharge Medications: New oxycodone 5 mg tablet 5 mg PO Q4H PRN (Reason: pain) Qty: 30 RF: 0 acetaminophen [Tylenol Extra Strength] 500 mg tablet 1,000 mg PO Q8H PRN (Reason: pain) Qty: 30 RF: 0 Continued (DME) ostomy adhesive Strip See Rx Instructions .ROUTE .MEDSUPPLY Qty: 15 RF: 3 (DME) ring (ostomy supply) 2 misc See Rx Instructions .ROUTE .MEDSUPPLY Qty: 20 RF: 3 atorvastatin [Lipitor] 40 mg Tablet 40 mg PO BEDTIME RF: 0 lisinopril [Zestril] 20 mg Tablet 20 mg PO DAILY RF: 0 lorazepam [Ativan] 0.5 mg Tablet 0.5 mg PO DAILY PRN (Reason: Anxiety) RF: 0 albuterol sulfate [Ventolin HFA] 90 mcg/actuation Hfa Aerosol Inhaler 2 puff INHALATION Q4H PRN (Reason: Shortness Of Breath) RF: 0 metoprolol tartrate [Lopressor] 100 mg tablet 100 mg PO BID Qty: 90 RF: 1 omeprazole 40 mg Capsule,Delayed Release(Dr/Ec) 40 mg PO DAILY RF: 0 Eliquis 5 mg tablet 5 mg PO BID 90 Days Qty: 180 RF: 1 Discharge Orders: Discharge Order (Routine); Ordered 06/09/20 Ordered By: Chio Kiran Diet: advance to usual diet Activity on Discharge: No heavy lifting Stand Alone Forms: Patient Portal Discharge page Visit Report Forms: Patient Portal Discharge page Care Plan Goals: Return to baseline activity following recovery period. Health Concerns: Hx of diverticular stricture of sigmoid colon requiring sigmoid resection and transverse colostomy now s/p ex lap, TAB for attempt at reanastomosis Plan of Treatment: Pain control, f/u in office with Dr. Rainey Discharge Date/Time: 06/09/20 10:05
== END 2020-06-09 10:05 | disposition home or self-care (01) | DRG 224 ==
LOC: HO.SSSA 06:04 → HO.S3 17:23
PROVIDERS: Nurse Practitioner; Physician Assistant Surgical; Admitting Provider Surgery; PCP Internal Medicine; Visit Provider Surgery
PROC: 0DTE0ZZ Resection of Large Intestine, Open Approach (ICD-10-PCS; principal; 2020-06-06 11:40)
DX: Z43.3 Encounter for attention to colostomy (principal); I48.0 Paroxysmal atrial fibrillation; K66.0 Peritoneal adhesions (postprocedural) (postinfection); F32.9 Major depressive disorder, single episode, unspecified; Z20.822 Contact with and (suspected) exposure to COVID-19; Z79.891 Long term (current) use of opiate analgesic; Z79.899 Other long term (current) drug therapy
CPT/HCPCS: 36415; 80048; 85025; 85027; 86850; 86900; 86901; 87635; 99024; C1758; J0131; J1100; J1170; J2250; J2270; J2370; J2405; J3010

== ENCOUNTER → 2020-06-21 09:47 | Outpatient (BNVA) | payer OTHER, SELFPAY | PROVIDERS: PCP Internal Medicine; Visit Provider Surgery | DX: Z98.890 Other specified postprocedural states (principal) | CPT/HCPCS: 99212 ==

== ENCOUNTER → 2020-07-19 09:31 | Outpatient (BNVA) | payer OTHER, SELFPAY | PROVIDERS: PCP Internal Medicine; Visit Provider Surgery | DX: L92.9 Granulomatous disorder of the skin and subcutaneous tissue, unspecified (principal); Z98.890 Other specified postprocedural states | CPT/HCPCS: 99212 ==

== ENCOUNTER → 2020-09-06 10:45 | Outpatient (BNVA) | payer OTHER, SELFPAY | PROVIDERS: PCP Internal Medicine; Visit Provider Surgery | DX: Z93.3 Colostomy status (principal); Z79.01 Long term (current) use of anticoagulants | CPT/HCPCS: 99212 ==

== ENCOUNTER → 2022-01-10 10:02 | Outpatient (BNVA) | payer OTHER, SELFPAY | PROVIDERS: PCP Internal Medicine; Visit Provider Surgery | DX: K43.2 Incisional hernia without obstruction or gangrene (principal); Z93.3 Colostomy status | CPT/HCPCS: 99212 ==

== ENCOUNTER 2022-02-04 08:51 | Outpatient (REF) | payer OTHER, SELFPAY ==
--- NOTE | ~2022-02-04 | CT_ITS ---
EXAMINATION: CT ABDOMEN AND PELVIS WITHOUT CONTRAST CLINICAL INFORMATION: Incisional hernia without obstruction. COMPARISON: Previous CT of the abdomen and pelvis most recent January 2020. TECHNIQUE: Multidetector volumetric imaging was performed from the superior aspect of the liver through the pubic symphysis. Sagittal and coronal reformatted images were obtained on the technologist's workstation. This CT examination was performed using dose optimization techniques as appropriate, variously including the following: *Automated exposure control *Adjustment of mA and/or kV according to patient size (this includes techniques or standardized protocols for targeted exams where dose is matched to indication/reason for exam; i.e. extremities or head) *Use of iterative reconstruction technique DLP: 689 mGy-cm FINDINGS: LUNG BASES: The visualized lung bases are unremarkable. LIVER, GALLBLADDER, AND BILIARY TREE: The liver is low in attenuation suggestive of fatty infiltration. The liver is slightly enlarged. No focal hepatic lesion or biliary ductal dilatation is present. The gallbladder is unremarkable with no evidence of radiopaque gallstones, gallbladder wall thickening, or obvious pericholecystic inflammatory changes. PANCREAS: Unremarkable. SPLEEN: Unremarkable. ADRENAL GLANDS: Unremarkable. KIDNEYS AND URETERS: There is a left pelvic kidney. There is a small cyst exophytic to the lower pole of the left kidney that is stable. No imaging follow up needed. Kidneys are otherwise unremarkable. BLADDER: Not optimally distended. GASTROINTESTINAL TRACT: There is a right lower quadrant transverse loop colostomy. There is a long Dilcia pouch. There is diverticulosis of the colon. No evidence of diverticulitis is seen. The appendix is not identified. No free air or free fluid is seen. ABDOMINAL WALL: Complex abdominal wall hernias. There is a small midline upper abdominal ventral hernia containing fat. Left lobe of the liver extends toward the neck of the hernia as well. More inferiorly there is a large broad-based hernia with wide neck that is midline and contains fat and small bowel. Small-bowel loops in the hernia sac appear slightly distended with small-bowel sign questionable for a small-bowel stasis. There is a right lower quadrant parastomal hernia around the colostomy containing right colon, cecum and fat. There is fat in both inguinal canals, right greater than left. LYMPH NODES: Normal. VASCULAR: Unremarkable. PELVIC VISCERA: Unremarkable. OSSEOUS STRUCTURES: There are degenerative changes of the spine. CT/CT abdomen pelvis wo IV con IMPRESSION: Complex abdominal wall hernias as described above. Upper midline small ventral hernia containing fat abutting the left lobe of the liver. More inferior midline large broad-based hernia with wide neck containing fat and small bowel. Right lower quadrant colostomy with parastomal hernia containing the right colon and fat. There is no evidence of obstruction. Postsurgical changes to the colon and a long Dilcia pouch with end in the right lower quadrant. Diverticulosis of the colon. No evidence of diverticulitis. Left pelvic kidney. Fatty liver. Fleischner guidelines were followed.
== END 2022-02-04 08:52 | disposition home or self-care (01) ==
LOC: HO.CT 08:51
PROVIDERS: PCP Internal Medicine; Visit Provider Surgery
DX: K43.2 Incisional hernia without obstruction or gangrene (principal)
CPT/HCPCS: 74176

== ENCOUNTER → 2022-02-11 10:34 | Outpatient (BNVA) | payer OTHER, SELFPAY | PROVIDERS: PCP Internal Medicine; Referring Provider Internal Medicine; Visit Provider Surgery | DX: K43.2 Incisional hernia without obstruction or gangrene (principal) | CPT/HCPCS: 99212 ==

== ENCOUNTER 2023-11-26 11:15 | Outpatient (REF) | payer OTHER, SELFPAY ==
[2023-11-26 11:39] LABS: MANUAL DIFF FLAG NO
[2023-11-26 12:19] LABS: Basophils Absolute Auto 0.1 X10*3/uL (0.0-0.2); Eosinophils Absolute Auto 0.1 X10*3/uL (0.0-0.4); Eosinophils Percent Auto 1.5 % (0-4); Hematocrit 45.7 % (42.0-52.0); Hemoglobin 14.9 g/dl (14.0-18.0); Imm Gran Abs Auto 0.06 X10*3/uL (0.00-0.03); Imm Gran Pct Auto 1.2 % (0.0-0.4); Lymphocytes Absolute Auto 1.6 X10*3/uL (1.2-4.9); Lymphocytes Percent Auto 30.7 % (20-40); Mean Corpuscular HGB Conc 32.6 g/dl (31.0-36.0); Mean Corpuscular Hemoglobin 26.5 pg (27.0-33.0); Mean Corpuscular Volume 81.2 fL (80.0-98.0); Mean Platelet Volume 11.6 fL (9.4-12.4); Monocytes Absolute Auto 0.5 X10*3/uL (0.1-1.2); Monocytes Percent Auto 8.8 % (2-11); Neutrophils Percent Auto 56.8 % (45-73); Platelet Count 243 X10*3/uL (160-400); Red Blood Count 5.63 X10*6/uL (4.60-5.80); Red Cell Distribution Width 14.8 % (11.0-16.0); White Blood Count 5.2 X10*3/uL (4.8-10.8)
[2023-11-26 13:09] LABS: Alanine Aminotransferase 33 U/L (0-40); Albumin Level 4.7 g/dL (3.5-5.0); Alkaline Phosphatase 111 U/L (39-117); Anion Gap 14 (12-20); Aspartate Amino Transferase 23 U/L (5-37); Bilirubin Total 0.4 mg/dL (0.0-1.0); Blood Urea Nitrogen 7 mg/dL (9-16); Calcium 9.7 mg/dL (8.4-10.2); Carbon Dioxide 24 mmol/L (22-29); Chloride 107 mmol/L (96-108); Cholesterol 211 mg/dL (<200); Estimated Glomerular Filt Rate > 60; Glucose Fasting 98 mg/dL (60-99); HDL Cholesterol 46 mg/dL (>40); LDL Cholesterol Calculated 103 mg/dL (<100); Potassium 4.4 mmol/L (3.3-5.1); Sodium 141 mmol/L (135-145); Total Protein 8.1 g/dL (6.5-8.0); Triglycerides 311 mg/dL (<150)
[2023-11-26 13:49] LABS: Prostate Specific Antigen 0.54 ng/mL (<0.05-4.0)
[2023-11-26 17:28] LABS: Appearance Urine Clear; Color Urine Yellow; Glucose Urine UA Negative (Negative); Leukocyte Esterase Urine Negative (Negative); Nitrite Urine Negative (Negative); Specific Gravity - Urine 1.015 (1.005-1.025); Urine Blood Negative (Negative); Urine Ketones Negative (Negative); Urine Protein Trace mg/dL (Neg-Trace)
== END 2023-11-26 11:16 | disposition home or self-care (01) ==
LOC: HO.LAB 11:15
PROVIDERS: PCP Internal Medicine; Visit Provider Internal Medicine
DX: I10 Essential (primary) hypertension (principal); E78.00 Pure hypercholesterolemia, unspecified; Z93.3 Colostomy status
CPT/HCPCS: 36415; 80053; 80061; 81003; 84153; 85025

== ENCOUNTER 2024-09-21 16:03 | Outpatient (AMB) | payer OTHER, SELFPAY ==
--- NOTE | 2024-09-21 16:01 | MHC.PC.OV ---
Vital Signs 09/21/24 16:08 09/22/24 08:03 Height 5 ft 6 in Weight 101.151 kg BMI 36.0 BP 142/98 H 124/80 Pulse 64 Pulse Source Pulse Oximeter Temp 97.1 F Temp Source Temporal Artery Scan Pulse Oximetry (%) 97 Oxygen Delivery Method Room Air Intake Visit Reasons: Routine - see comments Business Analytics Director Required: No Accompanied by: Self / Same As Patient Allergies No Known Allergies [No Known Allergies*] Allergy (Verified 09/21/24 16:01) Medication List - Last Reconciled 09/22/24 by YASMIN Roberts acetaminophen (Tylenol Extra Strength) 1,000 mg (2 x 500 mg) PO Q8H PRN albuterol sulfate 90 mcg/actuation (Ventolin HFA) 2 puffs inhalation Q4H PRN apixaban (Eliquis) 5 mg PO BID 90 days atorvastatin (Lipitor) 40 mg PO BEDTIME citalopram (Celexa) 20 mg PO DAILY lisinopril (Zestril) 20 mg PO DAILY lorazepam (Ativan) 0.5 mg PO DAILY PRN metoprolol tartrate 50 mg PO DAILY omeprazole 40 mg PO DAILY ostomy adhesive Brava adhesive strips ring (ostomy supply) Carmella rings - apply with each ostomy change HPI HPI Comments History of Present Illness Details 59 year old male with history of htn, paroxysmal atrial fibrillation, asthma, depression/anxiety, hx diverticulitis s/p resection with colostomy in place, and large umbilical hernia presents to the office today for routine follow-up and to establish care. He reports he has been compliant with his antihypertensive including metoprolol and lisinopril. Does check his blood pressures at home which are within normal range at 120/80 typically. On arrival, blood pressure is 142/98 which he attributes to anxiety and on recheck is 124/80. The patient has known atrial fibrillation and is no longer following with Cardiology as his symptoms have been well-controlled and Cardiology said to return only if symptoms recur. He is compliant with Eliquis for anticoagulation and denies any bleeding or easy bruisability. No shortness a breath, lightheadedness, palpitations, or chest pains. He does have a large umbilical hernia for which she has seen General surgery who referred him to a tertiary care facility for further evaluation and management. He was seen at [facility] who did recommend surgery but the patient felt he would be unable to take the 8 months needed for recovery off of work. He is aware of complications including incarceration or strangulation. He does report occasional spasm and pain across the abdomen but is moving his bowels regularly and the pain is intermittent. 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 He has had several episodes of diverticulitis with history of laparotomy and ultimately resection and now has colostomy bag which he manages on his own. He does report significant anxiety as a result of this as there can be occasional leakage. As a result he is requesting a note for jury duty in the future. He was hoping for this for his upcoming [employer] selection but is past the deadline to provide a letter. He states occasionally he will use Ativan for significant anxiety but reports this is rare. Reports depression is under control. No SI/HI. COUNTS INCLUDE 234 BEDS AT THE [facility] Medical History (Updated 09/22/24 @ 08:13 by YASMIN Roberts) Obesity Umbilical hernia Incisional hernia Hypergranulation Essential hypertension PAF (paroxysmal atrial fibrillation) Wears dentures On anticoagulant therapy HTN (hypertension) Diverticular disease of colon Colostomy in place Asthma Depression Atrial fibrillation Surgical History Hx of colonoscopy S/P exploratory laparotomy Social History Household Members: Spouse Housing: House Are you a primary youth care specialist to a significant other at home: No Do you presently have visiting nurse or other home services: No Alcohol intake: current Comment: pt is A[employer] Second Hand Smoke Exposure: No service: No Review of Systems Const All systems reviewed & are unremarkable except as noted in HPI and below Physical exam (Primary Care) Vital Signs: Last Vital Signs Temp 97.1 F 09/21/24 16:08 Pulse 64 09/21/24 16:08 BP 142/98 H 09/21/24 16:08 Pulse Ox 97 09/21/24 16:08 Oxygen Delivery Method Room Air 09/21/24 16:08 BMI result Body Mass Index 36.0 Const Other: Constitutional - Awake and Alert, No apparent distress Eyes - PERRLA, EOMI Cardiovascular - S1S2, RRR, No edema Respiratory - Normal lung expansion, Normal respiratory effort, No respiratory distress, CTA bilaterally Gastrointestinal - large umbilical hernia across the midd abdomen with ttp and is partially reducible. Colostomy in place. +BS, no rebound or ginvoluntary guarding Extremities - no calf tenderness bilaterally, no swelling Skin - Warm/Dry Neurological - Alert & oriented x3 Psychological - Appropriate affect Coding Level of Care Code New Pt Level 4 (46565) Complex EM visit Add On G2211 Diagnoses Essential hypertension I10 PAF (paroxysmal atrial fibrillation) I48.0 Diverticular disease of colon K57.30 Asthma J45.909 Anxiety F41.9 Umbilical hernia K42.9 Obesity E66.9 Assessment & Plan Assessment & Plan (1) Essential hypertension: Code(s): I10 - Essential (primary) hypertension Category: Medical Plan: Controlled on recheck with blood pressure 124/80. He will continue metoprolol and lisinopril as prescribed. Low-sodium diet advised. BMP ordered to evaluate renal function and electrolyte levels. (2) PAF (paroxysmal atrial fibrillation): Comment: Controlled. OAC resumed 06/07/20. H/H stable. Code(s): I48.0 - Paroxysmal atrial fibrillation Category: Medical Plan: Rate controlled. Continue Eliquis for anticoagulation, CBC ordered to evaluate for any significant anemia. Continue metoprolol for rate control. Will follow-up with cardiology as needed as recommended in prior Cardiology note. (3) Diverticular disease of colon: Comment: sigmoid resection with diverting transverse colostomy 01/2020 Code(s): K57.30 - Diverticulosis of large intestine without perforation or abscess without bleeding Category: Medical Plan: S/p resection with colostomy and place. Continue with home management of colostomy (4) Asthma: Comment: prn inhaler Code(s): J45.909 - Unspecified asthma, uncomplicated Category: Medical Plan: Controlled. Use albuterol only as needed for shortness of breath and wheezing. (5) Anxiety: Code(s): F41.9 - Anxiety disorder, unspecified Category: Medical Plan: Reasonably controlled. Continue using Ativan only as needed for anxiety, refill provided. Mass Pat reviewed. We will also continue Celexa. (6) Umbilical hernia: Code(s): K42.9 - Umbilical hernia without obstruction or gangrene Category: Medical Plan: Very large spanning across the entire abdomen as well as the umbilical area. Counseled on signs and symptoms of incarceration and strangulation which he is aware of. Recommended following up for further consideration of surgery with mesh general. (7) Obesity: Code(s): E66.9 - Obesity, unspecified Category: Medical Plan Follow-up in the office in 6 months, sooner if needed. Refills provided. Labs to be completed Orders: Orders Complete Blood Count Auto Diff Today F41.9 - Anxiety disorder, unspecified, I10 - Essential (primary) hypertension, I48.0 - Paroxysmal atrial fibrillation, K42.9 - Umbilical hernia without obstruction or gangrene, K57.30 - Diverticulosis of large intestine without perforation or abscess without bleeding Liver Panel Today F41.9 - Anxiety disorder, unspecified, I10 - Essential (primary) hypertension, I48.0 - Paroxysmal atrial fibrillation, K42.9 - Umbilical hernia without obstruction or gangrene, K57.30 - Diverticulosis of large intestine without perforation or abscess without bleeding Basic Metabolic Panel Today E66.812 - Obesity, class 2, F41.9 - Anxiety disorder, unspecified, I10 - Essential (primary) hypertension, I48.0 - Paroxysmal atrial fibrillation, K42.9 - Umbilical hernia without obstruction or gangrene, K57.30 - Diverticulosis of large intestine without perforation or abscess without bleeding Hemoglobin A1c Today F41.9 - Anxiety disorder, unspecified, I10 - Essential (primary) hypertension, I48.0 - Paroxysmal atrial fibrillation, K42.9 - Umbilical hernia without obstruction or gangrene, K57.30 - Diverticulosis of large intestine without perforation or abscess without bleeding Lipid Panel Today F41.9 - Anxiety disorder, unspecified, I10 - Essential (primary) hypertension, I48.0 - Paroxysmal atrial fibrillation, K42.9 - Umbilical hernia without obstruction or gangrene, K57.30 - Diverticulosis of large intestine without perforation or abscess without bleeding TSH reflex Free T4 Today F41.9 - Anxiety disorder, unspecified, I10 - Essential (primary) hypertension, I48.0 - Paroxysmal atrial fibrillation, K42.9 - Umbilical hernia without obstruction or gangrene, K57.30 - Diverticulosis of large intestine without perforation or abscess without bleeding Referrals Gastroenterology Referral Z12.11 - Encounter for screening for malignant neoplasm of colon Medications: New atorvastatin (Lipitor) 40 mg PO BEDTIME 180 tabs 1RF lisinopril (Zestril) 20 mg PO DAILY 90 tabs 1RF metoprolol tartrate 50 mg PO DAILY 90 tabs 1RF omeprazole 40 mg PO DAILY 90 caps 1RF lorazepam (Ativan) 0.5 mg PO DAILY PRN 30 tabs 0RF Anxiety Refilled citalopram (Celexa) 20 mg PO DAILY 90 tabs 1RF apixaban (Eliquis) 5 mg PO BID 90 days 180 tabs 1RF
[2024-09-21 16:08] VITALS: BP 142/98; PULSE 64; TEMP 36.2; O2SAT 97; BMI 36.0
[2024-09-22 08:03] VITALS: BP 124/80
== END 2024-09-21 16:45 | disposition home or self-care (01) ==
LOC: HO.HMCHD 16:03
PROVIDERS: PCP Internal Medicine; Visit Provider Physician Assistant
DX: I10 Essential (primary) hypertension (principal); I48.0 Paroxysmal atrial fibrillation; K57.30 Diverticulosis of large intestine without perforation or abscess without bleeding; J45.909 Unspecified asthma, uncomplicated; F41.9 Anxiety disorder, unspecified; K42.9 Umbilical hernia without obstruction or gangrene; E66.9 Obesity, unspecified

== ENCOUNTER → 2024-09-21 16:03 | Outpatient (BNVA) | payer OTHER, SELFPAY | PROVIDERS: PCP Internal Medicine; Visit Provider Physician Assistant | DX: I10 Essential (primary) hypertension (principal); I48.0 Paroxysmal atrial fibrillation; K57.30 Diverticulosis of large intestine without perforation or abscess without bleeding; J45.909 Unspecified asthma, uncomplicated; F41.9 Anxiety disorder, unspecified; K42.9 Umbilical hernia without obstruction or gangrene; E66.9 Obesity, unspecified; Z68.36 Body mass index [BMI] 36.0-36.9, adult; Z79.01 Long term (current) use of anticoagulants; Z79.899 Other long term (current) drug therapy; Z93.3 Colostomy status | CPT/HCPCS: 99202 ==

== ENCOUNTER 2025-03-28 14:21 | Outpatient (AMB) | payer OTHER, SELFPAY ==
--- NOTE | 2025-03-28 14:09 | MHC.PC.OV ---
Vital Signs 03/28/25 14:27 Height 5 ft 4.13 in Weight 96.162 kg BMI 36.2 BP 130/88 Blood Pressure Location Lt brachial Position Sitting Respiration 18 Pulse 66 Pulse Source Pulse Oximeter Temp 97.8 F Temp Source Temporal Artery Scan Pulse Oximetry (%) 98 Oxygen Delivery Method Room Air Intake Visit Reasons: 6 month F/U Applications Development Consultant Required: No Accompanied by: Self / Same As Patient Allergies No Known Allergies (No Known Allergies*) Allergy (Verified 03/28/25 14:10) Medication List - Last Reconciled 03/28/25 by YASMIN Roberts acetaminophen (Tylenol Extra Strength) 1,000 mg (2 x 500 mg) PO Q8H PRN albuterol sulfate 90 mcg/actuation (Ventolin HFA) 2 puffs inhalation Q4H PRN apixaban (Eliquis) 5 mg PO ONCE atorvastatin (Lipitor) 40 mg PO BEDTIME citalopram (Celexa) 20 mg PO DAILY lisinopril (Zestril) 20 mg PO DAILY lorazepam 0.5 mg PO DAILY PRN metoprolol tartrate 100 mg PO DAILY multivitamin 1 tab PO DAILY omeprazole 40 mg PO DAILY ostomy adhesive Brava adhesive strips ring (ostomy supply) Carmella rings - apply with each ostomy change Tobacco use date assessed: 03/28/25 Dental Screening Dental Screen Date: 03/28/25 Did you have a dental visit in the last 12 months?: Yes Did you have a dental problem in the last 6 months where you did not have access to dental care?: No Was dental information given to patient?: Patient has dentist HPI HPI Comments History of Present Illness Details 59 year old male with history of htn, paroxysmal atrial fibrillation, asthma, depression/anxiety, hx diverticulitis s/p resection with colostomy in place, and large umbilical hernia presents to the office today for routine follow-up. Paroxysmal atrial fibrillation-rate 66 in the office. On Eliquis 5 mg twice daily and metoprolol 100 mg daily. No longer following with Cardiology. Denies any lightheadedness, palpitations, dyspnea Hypertension-blood pressure 130/88. On metoprolol 100 mg daily, lisinopril 20 mg daily Mild intermittent asthma-albuterol as needed Depression/anxiety-stable on citalopram 20 mg with occasional use of lorazepam 0.5 mg as needed typically surrounding consumes of leakage Hyperlipidemia-due for lipid panel. Atorvastatin 40 mg daily History diverticulitis s/p resection with colostomy in place- continues with self management Large umbilical hernia- has seen General surgery who referred him to a tertiary care facility for further evaluation and management. He was seen at [facility] who did recommend surgery but the patient felt he would be unable to take the 8 months needed for recovery off of work. He is aware of complications including incarceration or strangulation. He does report occasional spasm and pain across the abdomen but is moving his bowels regularly and the pain is intermittent. Concerns: None Health Maintenance: GI consult for colonoscopy scheduled 04/19 ROS: General: No fevers, malaise, unintentional weight loss HEENT: No blurred vision, diplopia. No sore throat, nasal congestion, rhinorrhea, sinus pain, ear pain Cardiovascular: No chest pain, palpitations, or leg edema Respiratory: No shortness of breath, wheezing, cough GI: See HPI : No dysuria, hematuria, increased urinary frequency, decreased urinary output MSK: No myalgia, back pain Neuro: No headaches, weakness, paresthesias Saint: See HPI Skin: No rashes or lesions Exam: Constitutional - Awake and Alert, No apparent distress Eyes - PERRLA, EOMI Cardiovascular - S1S2, RRR, No edema Respiratory - Normal lung expansion, Normal respiratory effort, No respiratory distress, CTA bilaterally Gastrointestinal - large umbilical hernia across the midd abdomen with ttp and is partially reducible. Colostomy in place. +BS, no rebound or ginvoluntary guarding Extremities - no calf tenderness bilaterally, no swelling Skin - Warm/Dry Neurological - Alert & oriented x3 Psychological - Appropriate affect [facility] Medical History (Updated 09/22/24 @ 08:13 by YASMIN Roberts) Obesity Umbilical hernia Incisional hernia Hypergranulation Essential hypertension PAF (paroxysmal atrial fibrillation) Wears dentures On anticoagulant therapy HTN (hypertension) Diverticular disease of colon Colostomy in place Asthma Depression Atrial fibrillation Surgical History Hx of colonoscopy S/P exploratory laparotomy Social History Household Members: Spouse Housing: House Are you a primary manager medicare to a significant other at home: No Do you presently have visiting nurse or other home services: No Alcohol intake: current Comment: pt is A&O Patient Tobacco Use Status: Never used Tobacco e-Cigarette/Vaping Use: Never Used Second Hand Smoke Exposure: No service: Yes Current occupational status: employed Current occupation: [employer] Questionnaire AUDIT C Alcohol Use Questionnaire (AUDIT-C) 1. How often do you have a drink containing alcohol?: 2-4 times a month 2. How many drinks containing alcohol do you have on a typical day when you are drinking?: 3 or 4 3. How often do you have six or more drinks on one occasion?: Less than monthly Total Score: 4 Physical exam (Primary Care) Vital Signs: Last Vital Signs Temp 97.8 F 03/28/25 14:27 Pulse 66 03/28/25 14:27 Resp 18 03/28/25 14:27 BP 130/88 03/28/25 14:27 Pulse Ox 98 03/28/25 14:27 Oxygen Delivery Method Room Air 03/28/25 14:27 BMI result Body Mass Index 36.2 Tobacco/Smoking Status: Tobacco use Status Tobacco use date assessed 03/28/25 03/28/25 14:10 Patient Tobacco Use Status Never used Tobacco 03/28/25 14:29 e-Cigarette/Vaping Use Never Used 03/28/25 14:29 Coding Level of Care Code Est Pt Level 4 (41363) Complex EM visit Add On G2211 Diagnoses Essential hypertension I10 PAF (paroxysmal atrial fibrillation) I48.0 Diverticular disease of colon K57.30 Asthma J45.909 Anxiety F41.9 Umbilical hernia K42.9 Obesity E66.9 Assessment & Plan Assessment & Plan (1) Essential hypertension: Code(s): I10 - Essential (primary) hypertension Category: Medical Plan: Controlled. He will continue metoprolol and lisinopril as prescribed. Low-sodium diet advised. BMP ordered to evaluate renal function and electrolyte levels. (2) PAF (paroxysmal atrial fibrillation): Comment: Controlled. OAC resumed 06/07/20. H/H stable. Code(s): I48.0 - Paroxysmal atrial fibrillation Category: Medical Plan: Rate controlled. Continue Eliquis for anticoagulation, CBC ordered to evaluate for any significant anemia. Continue metoprolol for rate control. Referred back to Cardiology (3) Diverticular disease of colon: Comment: sigmoid resection with diverting transverse colostomy 01/2020 Code(s): K57.30 - Diverticulosis of large intestine without perforation or abscess without bleeding Category: Medical Plan: S/p resection with colostomy and place. Continue with home management of colostomy (4) Asthma: Comment: prn inhaler Code(s): J45.909 - Unspecified asthma, uncomplicated Category: Medical Plan: Controlled. Use albuterol only as needed for shortness of breath and wheezing. (5) Anxiety: Code(s): F41.9 - Anxiety disorder, unspecified Category: Medical Plan: Reasonably controlled. Continue using Ativan only as needed for anxiety. We will also continue Celexa. (6) Umbilical hernia: Code(s): K42.9 - Umbilical hernia without obstruction or gangrene Category: Medical Plan: Very large spanning across the entire abdomen as well as the umbilical area. Counseled on signs and symptoms of incarceration and strangulation which he is aware of. Recommended following up for further consideration of surgery with mesh general. (7) Obesity: Code(s): E66.9 - Obesity, unspecified Category: Medical Plan: Weight loss efforts advised. Declines referral to dietitian Plan Follow-up in the office in 6 months, sooner if needed. Labs to be completed Orders: Orders Basic Metabolic Panel Today E66.9 - Obesity, unspecified, F32.9 - Major depressive disorder, single episode, unspecified, I10 - Essential (primary) hypertension, I48.0 - Paroxysmal atrial fibrillation, J45.909 - Unspecified asthma, uncomplicated Hemoglobin A1c Today E66.9 - Obesity, unspecified, F32.9 - Major depressive disorder, single episode, unspecified, I10 - Essential (primary) hypertension, I48.0 - Paroxysmal atrial fibrillation, J45.909 - Unspecified asthma, uncomplicated Lipid Panel Today E66.9 - Obesity, unspecified, F32.9 - Major depressive disorder, single episode, unspecified, I10 - Essential (primary) hypertension, I48.0 - Paroxysmal atrial fibrillation, J45.909 - Unspecified asthma, uncomplicated Liver Panel Today E66.9 - Obesity, unspecified, F32.9 - Major depressive disorder, single episode, unspecified, I10 - Essential (primary) hypertension, I48.0 - Paroxysmal atrial fibrillation, J45.909 - Unspecified asthma, uncomplicated Referrals Cardiology Referral I48.0 - Paroxysmal atrial fibrillation Medications: New metoprolol tartrate 100 mg (2 x 50 mg) PO DAILY 180 tabs 1RF albuterol sulfate 90 mcg/actuation (Ventolin HFA) 2 puffs inhalation Q4H PRN 8.5 grams 1RF Shortness Of Breath Changed From apixaban (Eliquis) 5 mg PO ONCE To apixaban (Eliquis) 5 mg PO BID 180 tabs 1RF 90 days
[2025-03-28 14:27] VITALS: BP 130/88; PULSE 66; RESP 18; TEMP 36.6; O2SAT 98; BMI 36.2
== END 2025-03-28 14:46 | disposition home or self-care (01) ==
LOC: HO.HMCHD 14:22
PROVIDERS: PCP Internal Medicine; Visit Provider Physician Assistant
DX: I10 Essential (primary) hypertension (principal); I48.0 Paroxysmal atrial fibrillation; K57.30 Diverticulosis of large intestine without perforation or abscess without bleeding; J45.909 Unspecified asthma, uncomplicated; F41.9 Anxiety disorder, unspecified; K42.9 Umbilical hernia without obstruction or gangrene; E66.9 Obesity, unspecified

== ENCOUNTER → 2025-03-28 14:21 | Outpatient (BNVA) | payer OTHER, SELFPAY | PROVIDERS: PCP Internal Medicine; Visit Provider Physician Assistant | DX: I10 Essential (primary) hypertension (principal); I48.0 Paroxysmal atrial fibrillation; K57.30 Diverticulosis of large intestine without perforation or abscess without bleeding; J45.20 Mild intermittent asthma, uncomplicated; F41.9 Anxiety disorder, unspecified; K42.9 Umbilical hernia without obstruction or gangrene; E66.9 Obesity, unspecified; Z68.36 Body mass index [BMI] 36.0-36.9, adult; Z79.01 Long term (current) use of anticoagulants; Z79.899 Other long term (current) drug therapy; Z93.3 Colostomy status | CPT/HCPCS: 99212 ==